=== PATIENT | male | born 1970 | race Caucasian/White ===

== ENCOUNTER 2016-05-28 15:04 | Emergency (ER) | payer BC, OTHER ==
[2016-05-28 16:39] VITALS: BP 134/81
--- NOTE | 2016-05-28 17:20 | RAD ---
HISTORY: Acute low back pain COMPARISONS: November 23, 2014 VIEWS: 3 , Frontal, lateral, and coned-down lateral sacral views of the lumbar spine FINDINGS: ALIGNMENT: The alignment is normal. VERTEBRAL BODIES: The patient is status post spinal fusion with pedicle screws at L5 and S1. There is no hardware failure or osteolysis. Laminectomy defect is noted at L5-S1. There is mild anterolateral marginal osteophyte formation. JOINTS: There is mild facet hypertrophic change. INTERVERTEBRAL DISCS: There is mild loss of intervertebral disc height. SOFT TISSUE: Unremarkable. OTHER: The pelvis is unremarkable. The lung bases are clear. A spinal stimulator generator is noted. Surgical clips are noted in the left hemipelvis IMPRESSION: 1. STATUS POST SPINAL FUSION. 2. MILD DEGENERATIVE CHANGES.
[2016-05-28] MEDS ORDERED: HYDROcodone/ACETAMIN 5-325 MG* 1 TAB PO ONE ×2 (17:50→17:51)
[2016-05-28] MEDS ORDERED: Diazepam TAB(*) 5 MG PO ONE (17:50)
[2016-05-28] MEDS ORDERED: Carisoprodol TAB* 350 MG PO ONE (17:53)
--- NOTE | 2016-05-28 18:07 | UC ---
Back Pain HPI - HPI Summary HPI Summary: 2013 HAD HX OF BACK SURGERY , WAS SYMPTOM FREE. TODAY WAS GETTING UP FROM TOILET AND HAD SHARP PAIN AND SPASM IN LOW BACK THAT RADIATES DOWN LEFT LEG. NO LOSS OF CONTROL OF BLADDER OR BOWEL. - History of Current Complaint Chief Complaint: UCBackPain Stated Complaint: BACK PAIN Time Seen by Provider: 05/28/16 16:51 Hx Obtained From: Patient Onset/Duration: Sudden Onset, Lasting Hours, Still Present Timing: Lasting Hours Severity Initially: Moderate Severity Currently: Moderate Back Pain: Is Discrete @ - LOW BACK, Radiates To - LEFT LEG Character: Spasmodic Aggravating: Movement, Bending, Walking Alleviating: Rest, Position, OTC Meds - IBUPROFEN Associated Signs And Symptoms: Positive: Pain with Weight Bearing. Negative: Swelling, Weakness, Numbness, Tingling, Abdominal Pain, Flank Pain, Bladder Incontinence, Bowel Incontinence, Weight Loss Related History: Previous Back Injury - Risk Factors AAA Risk Factors: Negative TAD Risk Factors: Negative Cauda Equina Risk Factors: Negative Epidural Abscess Risk Factors: Negative - Allergies/Home Medications Allergies/Adverse Reactions: Allergies Allergy/AdvReac Type Severity Reaction Status Date / Time Penicillins [PCN] Allergy Nausea And Verified 05/28/16 16:40 Vomiting Pregabalin [From Lyrica] Allergy See Comment Verified 05/28/16 16:40 Home Medications: Home Medications Ibuprofen TAB* [Advil TAB*] 400 mg PO Q8H PRN 05/28/16 [History Confirmed ] PMH/Surg Hx/FS Hx/Imm Hx Previously Healthy: Yes - Surgical History Surgical History: Yes Surgery Procedure, Year, and Place: Back surgeries. Dorsal Column Stimulator - Family History Known Family History: Negative: Renal Disease - Social History Occupation: Employed Full-time Lives: With Family Alcohol Use: None Substance Use Type: None Smoking Status (MU): Former Smoker Amount Used/How Often: 1 ppd Length of Time of Smoking/Using Tobacco: 10 -15 years Have You Smoked in the Last Year: No When Did the Patient Quit Smoking/Using Tobacco: Quit 2002 Review of Systems Constitutional: Negative Skin: Negative Eyes: Negative ENT: Negative Respiratory: Negative Cardiovascular: Negative Gastrointestinal: Negative Genitourinary: Negative Motor: Negative Neurovascular: Negative Musculoskeletal: Arthralgia, Myalgia Neurological: Negative Psychological: Negative All Other Systems Reviewed And Are Negative: Yes Physical Exam Triage Information Reviewed: Yes Appearance: Well-Appearing, No Pain Distress, Well-Nourished Vital Signs: Initial Vital Signs Temp 99.8 F 05/28/16 16:35 Pulse 83 05/28/16 16:35 Resp 18 05/28/16 16:35 BP 134/81 05/28/16 16:35 Pulse Ox 96 05/28/16 16:35 Vital Signs Reviewed: Yes Eye Exam: Normal Eyes: Positive: Conjunctiva Clear ENT Exam: Normal ENT: Positive: Normal ENT inspection, Hearing grossly normal, Pharynx normal, TMs normal Dental Exam: Normal Neck exam: Normal Neck: Positive: Supple, Nontender, No Lymphadenopathy Respiratory Exam: Normal Respiratory: Positive: Chest non-tender, Lungs clear, Normal breath sounds, No respiratory distress, No accessory muscle use Cardiovascular Exam: Normal Cardiovascular: Positive: RRR, No Murmur, Pulses Normal Abdominal Exam: Normal Abdomen Description: Positive: Nontender, No Organomegaly Musculoskeletal: Positive: ROM Intact, No Edema, Strength Limited @ - LOW BACK LEFT LEG, Other: - PALPABLE SPASM LEFT BUTTOCKS LOWER BACK Neurological Exam: Normal Psychological Exam: Normal Psychological: Positive: Normal Response To Family Skin Exam: Normal Back Pain Course/Dx - Differential Dx/Diagnosis Differential Diagnosis/HQI/PQRI: Fracture, Herniated Disc, Strain, Sprain Provider Diagnoses: acute on chronic low back pain Discharge - Discharge Plan Condition: Stable Disposition: HOME Prescriptions: Diazepam TAB(*) [Valium TAB(*)] 5 mg PO TID PRN #9 tab MDD three tabs PRN Reason: Spasms HYDROcodone/ACETAMIN 5-325 MG* [[place] 5-325 TAB*] 1 tab PO Q8H PRN #9 tab MDD three tabs PRN Reason: Pain Patient Education Materials: Acute Low Back Pain (ED), Chronic Back Pain (ED) Forms: *Work Release Referrals: Jonnie Hough NP [Primary Care Provider] - Additional Instructions: PHYSICAL THERAPY REFERRAL: You have been prescribed physical therapy. Treatments may include stretching, exercise, application of heat or cold, and other modalities. After an injury, PT can reduce swelling and pain. In recovery, PT is used to restore mobility and strength. Your specific treatment goals are: Reduction of Swelling (EGS, US, ice as needed) ___x__ Pain Reduction (EGS, US, ice as needed) ___x__ TENS Pack Fitting and Instruction Wound Hydrotherapy ___x__ Preservation of Mobility ___x_ Mosque of Mobility ___x__ Strength Mosque ___x__ Work or Sports Hardening This instruction sheet also serves as your PHYSICAL THERAPY REFERRAL! Please take it with you to the therapist, so he/she will be aware of your diagnosis and treatment plan. You may see the physical therapist of your choice for these treatments, but may wish to check with your insurance to be sure the provider you select is covered. It's important to see the doctor to whom you have been referred for follow up.
== END 2016-05-28 18:12 | disposition home or self-care (01) ==
LOC: UCCORT 15:04
DX: M54.5 Low back pain (principal); M62.830 Muscle spasm of back; Z88.0 Allergy status to penicillin; Z88.8 Allergy status to other drugs, medicaments and biological substances
CPT/HCPCS: 72100; 99213; A9270-GY; G0463

== ENCOUNTER 2016-07-22 07:40 | Emergency (ER) | payer BC ==
[2016-07-22 07:57] VITALS: BP 118/64
--- NOTE | 2016-07-22 08:19 | UC ---
Complaint Male HPI - HPI Summary HPI Summary: DIFFICULTY URINATING FOR THE PAST 2 WEEKS , GETTING WORSE EACH DAY WAS SEEN AT [facility] YESTERDAY , HE WAS REFERRED TO SEE THE UROLOGIST MILD ABDOMINAL PAIN TODAY , WAS ABLE TO VOID THIS MORNING - History of Current Complaint Chief Complaint: UCGU Stated Complaint: CAN'T URINATE Time Seen by Provider: 07/22/16 07:47 Hx Obtained From: Patient Onset/Duration: Gradual Onset, Lasting Weeks - 2, Still Present Timing: Intermittent Severity Initially: Moderate Severity Currently: Moderate Location: Suprapubic Character: Constant Pressure Aggravating Factor(s): Nothing Associated Signs And Symptoms: Negative: Negative, Diaphoresis, Back Pain, Fever , Hematuria, Dysuria, Constipation, Rectal Pain, Appetite, Nausea, Vomiting(# Of Episodes =), Penile Swelling, Penile Discharge - Allergies/Home Medications Allergies/Adverse Reactions: Allergies Allergy/AdvReac Type Severity Reaction Status Date / Time Penicillins [PCN] Allergy Nausea And Verified 07/22/16 07:44 Vomiting Pregabalin [From Lyrica] Allergy See Comment Verified 07/22/16 07:44 Home Medications: Home Medications Acetaminop/Codeine 30 MG TAB* [Tylenol/Codeine 30 MG TAB*] 1 tab BID PRN [History Confirmed 07/22/16] Omeprazole CAP* [Prilosec CAP* 20 MG] 20 mg PO DAILY 07/22/16 [History Confirmed 07/22/16] PMH/Surg Hx/FS Hx/Imm Hx Psychological History Of: Reports: Bipolar Disorder - Surgical History Surgical History: Yes Surgery Procedure, Year, and Place: Back surgeries. Dorsal Column Stimulator. Colonoscopy/Endoscopy. Hemmrhoids - Family History Known Family History: Negative: Renal Disease - Social History Alcohol Use: None Substance Use Type: None Smoking Status (MU): Former Smoker Amount Used/How Often: 1 ppd Length of Time of Smoking/Using Tobacco: 10 -15 years Have You Smoked in the Last Year: No When Did the Patient Quit Smoking/Using Tobacco: Quit 2002 - Immunization History Most Recent Influenza Vaccination: 2016 Review of Systems Constitutional: Negative Skin: Negative Eyes: Negative ENT: Negative Respiratory: Negative Cardiovascular: Negative Gastrointestinal: Negative Genitourinary: Other - URINARY RETENSION All Other Systems Reviewed And Are Negative: Yes Physical Exam Triage Information Reviewed: Yes Appearance: Well-Appearing, No Pain Distress, Well-Nourished Vital Signs: Initial Vital Signs Temp 98.2 F 07/22/16 07:46 Pulse 62 07/22/16 07:46 Resp 18 07/22/16 07:46 BP 118/64 07/22/16 07:46 Pulse Ox 100 07/22/16 07:46 Eyes: Positive: Conjunctiva Clear ENT: Positive: Normal ENT inspection, Hearing grossly normal, Pharynx normal Neck exam: Normal Neck: Positive: Supple, Nontender, No Lymphadenopathy Respiratory: Positive: Chest non-tender, Lungs clear, Normal breath sounds Cardiovascular: Positive: RRR, No Murmur, Pulses Normal Abdomen Description: Positive: Nontender, Soft. Negative: CVA Tenderness (R), CVA Tenderness (L), Distended, Guarding Bowel Sounds: Positive: Present Skin Exam: Normal Complaint Male Course/Dx - Differential Dx/Diagnosis Provider Diagnoses: URINARY RETENSION Discharge - Discharge Plan Condition: Stable Disposition: HOME Prescriptions: Tamsulosin HCl [Flomax] 0.4 mg PO DAILY WITH MEAL #30 cap Patient Education Materials: Urinary Retention in Men (ED) Referrals: Vic Bah MD [Medical Doctor] - As Soon As Possible Jonnie Hough NP [Primary Care Provider] - 5 Days Additional Instructions: FOLLOW UP WITH THE UROLOGIST THAT WAS ASSIGNED TO KRISTY JONES AND GRACE
== END 2016-07-22 08:19 | disposition home or self-care (01) ==
LOC: UCCORT 07:40
DX: R33.9 Retention of urine, unspecified (principal); Z88.0 Allergy status to penicillin; F31.9 Bipolar disorder, unspecified; Z87.891 Personal history of nicotine dependence
CPT/HCPCS: 99212; G0463

== ENCOUNTER 2016-09-24 13:45 | Emergency (ER) | payer BC ==
[2016-09-24 14:25] VITALS: BP 117/79
--- NOTE | 2016-09-24 15:13 | UC ---
Upper Extremity HPI - HPI Summary HPI Summary: pt presents with c/o left wrist pain that began yesterday. Pt denies injury to wrist. Pt reports that the he has an appointment with neurologist on October 02 for c/o muscle weakness, uncontrolled body movements, urinary retention and memory issues. - History of Current Complaint Chief Complaint: UCUpperExtremity Stated Complaint: LEFT HAND/WRIST COMPLAINT Time Seen by Provider: 09/24/16 14:51 Hx Obtained From: Patient ?: No Onset/Duration: Sudden Onset, Lasting Hours Severity Initially: Mild Severity Currently: Mild Location Of Pain: Is Discrete @ - left wrist Character: Dull, Aching Aggravating Factor(s): Movement Alleviating Factor(s): Nothing Associated Signs And Symptoms: Positive: Weakness Related History: Dominant Hand Right - Risk Factors Non-Orthopedic Risk Factor: Negative - Allergies/Home Medications Allergies/Adverse Reactions: Allergies Allergy/AdvReac Type Severity Reaction Status Date / Time Penicillins [PCN] Allergy Nausea And Verified 09/24/16 14:14 Vomiting Pregabalin [From Lyrica] Allergy See Comment Verified 09/24/16 14:14 Home Medications: Home Medications Cyclobenzaprine TAB* [Flexeril 10 MG TAB*] 10 mg PO BID PRN 09/24/16 [History Confirmed 09/24/16] Ibuprofen TAB* [Motrin TAB* 600 MG] 600 mg PO Q8H PRN 09/24/16 [History Confirmed 09/24/16] Linaclotide (NF) [Linzess (NF)] 290 mcg PO BEDTIME 09/24/16 [History Confirmed 09/24/16] Vitamin E CAP* 3 cap PO BEDTIME 09/24/16 [History Confirmed 09/24/16] PMH/Surg Hx/FS Hx/Imm Hx Previously Healthy: Yes Psychological History: Bipolar Disorder - Surgical History Surgical History: Yes Surgery Procedure, Year, and Place: Back surgeries. Dorsal Column Stimulator, appy, varicocele repair, speed banding for hemorrhoids - Family History Known Family History: Negative: Renal Disease - Social History Occupation: Employed Part-time Alcohol Use: None Substance Use Type: None Smoking Status (MU): Former Smoker Amount Used/How Often: 1 ppd Length of Time of Smoking/Using Tobacco: 10 -15 years Have You Smoked in the Last Year: No When Did the Patient Quit Smoking/Using Tobacco: Quit 2002 - Immunization History Most Recent Influenza Vaccination: 2016 Review of Systems Constitutional: Negative Skin: Negative Eyes: Negative ENT: Negative Respiratory: Negative Cardiovascular: Negative Gastrointestinal: Negative Genitourinary: Negative Motor: Decreased ROM, Weakness, Other - pain left wrist Neurovascular: Negative Musculoskeletal: Arthralgia, Myalgia Neurological: Negative Psychological: Negative All Other Systems Reviewed And Are Negative: Yes Physical Exam Triage Information Reviewed: Yes Appearance: Well-Appearing Vital Signs: Initial Vital Signs Temp 99.2 F 09/24/16 14:18 Pulse 79 09/24/16 14:18 Resp 18 09/24/16 14:18 BP 117/79 09/24/16 14:18 Pulse Ox 98 09/24/16 14:18 Eye Exam: Normal Dental Exam: Normal Neck exam: Normal Respiratory Exam: Normal Musculoskeletal Exam: Other - pain at capitate/pisiform with palpation, strength 2+ bilateral UE Psychological Exam: Normal Skin Exam: Normal Upper Extremity Course/Dx - Differential Dx/Diagnosis Differential Diagnosis/HQI/PQRI: Arthritis, Other - tendonitis Provider Diagnoses: arthralgia. tendonitis. side effect medication-? Discharge - Discharge Plan Condition: Stable Disposition: HOME Prescriptions: Ibuprofen TAB* [Motrin TAB* 600 MG] 600 mg PO Q8H PRN #45 tab PRN Reason: Pain Patient Education Materials: Arthralgia (ED) Referrals: Jonnie Hough NP [Nurse Practitioner] - If Needed
== END 2016-09-24 15:33 | disposition home or self-care (01) ==
LOC: UCCORT 13:45
DX: M77.9 Enthesopathy, unspecified (principal); M25.532 Pain in left wrist; F31.9 Bipolar disorder, unspecified; Z87.891 Personal history of nicotine dependence; Z88.0 Allergy status to penicillin
CPT/HCPCS: 99212; G0463

== ENCOUNTER 2017-02-20 10:22 | Emergency (ER) | payer BC ==
[2017-02-20 12:12] VITALS: BP 119/75
--- NOTE | 2017-02-20 12:46 | UC ---
Shoulder Pain HPI - HPI Summary HPI Summary: Pt c/o waking up 2 days ago with left side neck and upper back shoulder pain. Pt denies injury or trauma. Denies cardiac history - History of Current Complaint Chief Complaint: UCBackPain Stated Complaint: LEFT SIDE NECK/SHOULDER PAIN Time Seen by Provider: 02/20/17 12:14 Hx Obtained From: Patient Onset/Duration: Sudden Onset, Lasting Days, Still Present Timing: Constant Severity Initially: Mild Severity Currently: Mild Character: Dull, Aching Aggravating Factor(s): Movement, Other - touch Alleviating Factor(s): Rest Associated Signs And Symptoms: Positive: Negative Related History: Dominant Hand Right - Risk Factors Non-Orthopedic Risk Factor: Negative DVT Risk Factors: Negative Septic Arthritis Risk Factor: Negative - Allergies/Home Medications Allergies/Adverse Reactions: Allergies Allergy/AdvReac Type Severity Reaction Status Date / Time Penicillins [PCN] Allergy Nausea And Verified 02/20/17 12:12 Vomiting Pregabalin [From Lyrica] Allergy See Comment Verified 02/20/17 12:12 PMH/Surg Hx/FS Hx/Imm Hx Previously Healthy: Yes - Surgical History Surgical History: Yes Surgery Procedure, Year, and Place: Back surgeries. Dorsal Column Stimulator, appy, varicocele repair, speed banding for hemorrhoids - Family History Known Family History: Negative: Renal Disease - Social History Lives: With Family Alcohol Use: None Substance Use Type: None Smoking Status (MU): Former Smoker Amount Used/How Often: 1 ppd Length of Time of Smoking/Using Tobacco: 10 -15 years Have You Smoked in the Last Year: No When Did the Patient Quit Smoking/Using Tobacco: Quit 2002 - Immunization History Most Recent Influenza Vaccination: yes Review of Systems Constitutional: Negative Skin: Negative Eyes: Negative ENT: Negative Respiratory: Negative Cardiovascular: Negative Gastrointestinal: Negative Genitourinary: Negative Motor: Negative Neurovascular: Negative Musculoskeletal: Myalgia - left shoulder, neck Neurological: Negative Psychological: Negative Is Patient Immunocompromised?: No All Other Systems Reviewed And Are Negative: Yes Physical Exam Triage Information Reviewed: Yes Appearance: Well-Appearing Vital Signs: Initial Vital Signs Temp 98 F 02/20/17 12:08 Pulse 70 02/20/17 12:08 Resp 16 02/20/17 12:08 BP 119/75 02/20/17 12:08 Pulse Ox 100 02/20/17 12:08 Eye Exam: Normal ENT Exam: Normal Dental Exam: Normal Neck exam: Normal Neck: Positive: Supple Respiratory Exam: Normal Cardiovascular Exam: Normal Musculoskeletal Exam: Normal Musculoskeletal: Positive: Other: - point tenderness upper mid scapular, trigger point Neurological Exam: Normal Psychological Exam: Normal Skin Exam: Normal Shoulder Course/Dx - Differential Dx/Diagnosis Differential Diagnosis/HQI/PQRI: Arthritis, Bursitis, Sprain, Strain Provider Diagnoses: trigger point pain. myalgia Discharge - Discharge Plan Condition: Stable Disposition: HOME Patient Education Materials: Trigger Point Pain (ED) Referrals: Yaquelin Helton NP [Primary Care Provider] - If Needed Additional Instructions: Please follow up with your PCP or return to clinic as needed.
== END 2017-02-20 12:56 | disposition home or self-care (01) ==
LOC: UCCORT 10:22
DX: M79.1 Myalgia (principal); Z88.0 Allergy status to penicillin; Z87.891 Personal history of nicotine dependence
CPT/HCPCS: 99211; G0463

== ENCOUNTER 2018-01-21 20:57 | Emergency (ER) | payer BC ==
--- OUTSIDE RECORDS SUMMARY | 2018-01-21 21:15 | XMS REPORT ---
:1970 External Reference #:[id number] Author Organization [facility] Address [address], [address] [place] [address] Phone [phone] Care Team Providers Name Role Phone Yaquelin Helton, PNP-SONIDO, [employer], Ibclc Care Team Information Alarm Service Technician Unavailable Yaquelin Helton, SHAINA, [employer]IC, Ibclc Primary Care Physician Unavailable Payers Type Date Identification Numbers Payment Provider Subscriber Commercial Policy Number: [id number] Clovis[employer] Fatemeh Nicole PayID: [id number] [address] [address] [place] [address] Problems Date Description Provider Status Onset: 06/16/2016 Chronic idiopathic constipation Victor Manuel Flaherty MD Active Onset: 07/21/2016 Spivey's esophagus Victor Manuel Flaherty MD Active Onset: 07/21/2016 Gastroduodenitis Victor Manuel Flaherty MD Active Onset: 07/24/2016 Thrombosed external hemorrhoids Jace Wallace MD,FACS Active Onset: 06/19/2017 Nocturia Clarke Zhang M.D. Active Onset: 06/05/2017 Retention of urine Clarke Zhang M.D. Active Onset: 06/05/2017 Benign prostatic hypertrophy with Clarke Zhang M.D. Active outflow obstruction Onset: 06/05/2017 Screening for malignant neoplasm of Clarke Zhang M.D. Active prostate Onset: 12/20/2016 Digestive symptom Victor Manuel Flaherty MD Active Onset: 12/20/2016 Abdominal pain Victor Manuel Flaherty MD Active Onset: 12/20/2016 Flatulence, eructation and gas pain Victor Manuel Flaherty MD Active Onset: 12/20/2016 Constipation Victor Manuel Flaherty MD Active Family History Date Family Member(s) Problem(s) Comments General Colon Cancer General Diabetes Father No Current Problems Father Pacemaker Father turp Father Diabetes Mother No Current Problems Paternal Grandfather due to Unknown Causes () Paternal Grandmother due to Diabetes () Maternal Grandfather due to Alzheimer's Disease () Maternal Grandmother Unknown Social History Type Date Description Comments Lives With Mother Occupation Disabled ETOH Use Denies alcohol use Smoking Patient is a former smoker Allergies, Adverse Reactions, Alerts Date Description Reaction Status Severity Comments 05/31/2016 Lyrica active 05/31/2016 Penicillin active Medications Medication Date Status Form Strength Qnty SIG Indications Ordering Provider Ventolin HFA 01/04/ Active Aerosol 108(90Base 18gm Inhale 2 R05 Lopez2017 ) mcg/Act puffs by RENE Spencer mouth every 3 hours as needed for shortness of breath Benzonatate 01/04/ Active Capsules 100mg 30caps take 1 R05 Lopez2017 capsule by RENE Spencer mouth every 8 hours for coughing as needed Skelaxin 12/27/ Active Tablets 800mg 60tabs 1 by mouth Danie 2017 three times Yaquelin a day for PNP-BC, muscle [employer], Ibclc spasms.. Linzess 09/27/ Active Capsules 290mcg 90caps 1 by mouth Day Chavira every day Paroxetine HCL 06/29/ Active Tablets 10mg 90tabs take one Danie, 2017 tablet by Yaquelin mouth every PNP-BC, day with [employer], Ibclc 40mg tablet Paroxetine HCL 05/23/ Active Tablets 40mg 90tabs 1 by mouth F41.9 Danie 2017 every day Yaquelin with 10mg PNP-BC, tablet [employer], Ibclc Clonazepam 05/23/ Active Tablets 0.5mg 60tabs take 1 to 2 G47.00 Danie 2017 at bedtime Yaquelin, reference PNP-BC, #: [id number] [employer]IC, Ibclc F41.9 Jobst Active 04/30/2017 Active Misc 2Pair 2 pairs for I83.93 Clune, 15-20MMHG/Knee moderate (RT Jenniferleigh, High/Closed leg) and [employer]IC Toe/Medium severe (lt leg) varicosities Esomeprazole 12/20/2016 Active Capsules 2 90caps 1 cap by K22.70 Victor Manuel Flaherty MD Magnesium DR 0 mouth every m day every g morning Benadryl Allergy Active Capsules 2 30caps using otc Yaquelin Helton, 5 PNP-BC, [employer]IC, m Ibclc g Melatonin Active Capsules 5 1 by mouth Unknown m every at g bedtime as needed Meloxicam Active Tablets 7 Take One Unknown . Tablet By 5 Mouth Twice A m Day For 2 g Weeks Then as Needed Trospium 08/09/2017 Hx Caps ER 6 30caps 1 tab by R35.1 Vicente, Chloride ER - 24HR 0 mouth every Valentin Mir 09/11/2017 m day g Myrbetriq 06/21/2017 Hx Tablets 2 30tabs 1 by mouth Vicente, - ER 24HR 5 every day Valentin Mir 08/28/2017 m g Meloxicam 05/23/2017 Hx Tablets 7 60tabs 1 tab by M25.551 Yaquelin Helton , - . mouth twice a PNP-BC, [employer]IC, 09/11/2017 5 day as for 2 Ibclc m weeks and g then as needed Multivitamin 04/17/2017 Hx Tablets 30tabs 1 by mouth Yaquelin Helton, Adult - every day PNP-BC, [employer], 09/11/2017 Ibclc Vitamin C 04/17/2017 Hx Chewtabs 5 1 by mouth Yaquelin Helton, - 0 every day PNP-BC, AUT[employer]IC, 09/11/2017 0 Ibclc m g Paroxetine HCL 04/17/2017 Hx Tablets 2 30tabs 1 by mouth F41.9 Yaquelin Helton, - 0 every day PNP-BC, AUT[employer]IC, 05/23/2017 m Ibclc g Fexofenadine HCL 01/08/2017 Hx Tablets 1 30tabs 1 by mouth at Yaquelin Helton, - 8 night PNP-BC, AUT[employer]IC, 09/11/2017 0 Ibclc m g Fluticasone 01/08/2017 Hx Suspensio 5 16gm 2 sprays each Yaquelin Helton , Propionate - n 0 nare once a PNP-BC, [employer]IC, 09/11/2017 m day Ibclc c g / A c t Ibuprofen 01/02/2017 Hx Tablets 6 240tab 1 tab three Yaquelin Helton, - 0 s times a day PNP-BC, AUT[employer]IC, 02/28/2017 0 as needed Ibclc m g Vicodin ES 11/16/2016 Hx Tablets 7 40tabs one tablet M54.5 Clune, - . every 6 hours Claudio, 01/02/2017 5 as needed for [employer]IC - moderate to 3 severe pain 0 Reference #: [id number] m g Ziprasidone HCL 10/11/2016 Hx Capsules 2 30caps 1 tab po qhs Yaquelin Helton, 0 PNP-BC, AUT[employer]SM[employer]IC, m Ibclc g Metaxalone 10/11/2016 Hx Tablets 8 60tabs 1 tab by M62.830 Yaquelin Helton, - 0 mouth three PNP-BC, AUT[employer]IC, 02/28/2017 0 times a day Ibclc m as needed for g pain Cyclobenzaprine 09/07/2016 Hx Tablets 1 45tabs 1 by mouth M62.830 Yaquelin Helton, HCL - 0 three times a PNP-BC, AUT[employer]IC, 10/11/2016 m day as needed Ibclc g for back pain Tylenol With 08/10/2016 Hx Tablets 3 20tabs 1 by mouth Jace Wallace, Codeine #3 - 0 q6hr as MYRNA PHIPPS 10/11/2016 0 needed severe - pain, us if 3 ibuprofen not 0 effective m g Lidocaine 07/26/2016 Hx Ointment 5 30gm apply cream K64.5 Jace Wallace, - % to the MYRNA PHIPPS 08/10/2016 quirino-anal area as needed for pain every 4-6 hours Linzess 07/21/2016 Hx Capsules 2 90caps 1 by mouth K59.04 Victor Manuel Flaherty MD - Bertha every day 09/11/2017 0 m c g Omeprazole 07/04/2016 Hx Capsules 2 30caps 1 tab by Victor Manuel Flaherty MD - DR 0 mouth every 02/28/2017 m day every g morning Zithromax 06/28/2016 Hx Tablets 2 6tabs take 2 tabs Yaquelin Helton, 5 by mouth on PNP-BC, [employer]IC, 0 day 1 then 1 Ibclc m tab by mouth g every days 2-5 Vitamin E-400 06/26/2016 Hx Capsules 4 3 by mouth Yaquelin Helton, - 0 every day PNP-RENE HEAD, 10/11/2016 0 Ibclc U n i t Oxycodone-Acetam 06/26/2016 Hx Tablets 5 30tabs 1-2 tabs by M54.5 Jace Wallace, inophen - - mouth every 6 MD,FACS 01/02/2017 3 hours as 2 needed for 5 yosef m g Golytely 06/16/2016 Hx Solution 2 4000ml drink half K59.04 Victor Manuel Flaherty MD Rec 3 the evening 6 before and g half the m morning of the procedure (1 cup every 10') Dulcolax 06/16/2016 Hx Tablets 5 4tabs [address] herrera Chavira taken a 8pm g the day before starting the golytely Ziprasidone HCL Hx Capsules 4 1 at bedtime Unknown - 0 10/11/2016 m g Hydrocodone-Acet Hx Tablets 5 1 by mouth Unknown aminophen - - every 8 hours 08/10/2016 3 as needed 2 pain 5 m g Diazepam Hx Tablets 5 30tabs 1 tab 3 x a Yaquelin Helton, - m day as needed PNPRENE CAAL, 01/02/2017 g Reference #: Ibclc [id number] Vitamin D3 High Hx Capsules 1 1 by mouth Unknown Potency - 0 every day 10/11/2016 0 0 U n i t Ibuprofen Hx Tablets 6 1 by mouth Unknown - 0 every 6 hours 10/11/2016 0 as needed m pain use as g first line pain control Flomax Hx Capsules 0 1 tab by Unknown . mouth every 4 day 30 m minutes after g a meal Oxycodone-Acetam Hx Tablets 5 60tabs take one to Yaquelin Helton inophen - - two tablets PNPTEN, AUTOM[employer]SM[employer] MECH[employer]IC, 09/11/2017 3 by mouth Ibclc 2 every 6 hours 5 as needed for m pain g reference #: [id number] Tamsulosin HCL Hx Capsules 0 90caps 1 tab daily Ryder Zhang M.D. 06/20/2017 4 m g Cyclobenzaprine Hx Tablets 1 90tabs 1 tab by Yaquelin Helton, HCL - 0 mouth three PNP-BC, AUTOM[employer]SM[employer] ME[employer]IC, 01/04/2018 m times a day Ibclc g as needed Tylenol PM Extra Hx Tablets 5 no more than Unknown Strength - 0 2 tabs po at 01/04/2018 0 night - 2 5 m g Immunizations CPT Code Status Date Vaccine Lot # [id number] Given 01/25/2017 Influenza Virus Vaccine Quadrivalent Iiv4 Split [id number] Preser Free Id Vital Signs Date Vital Result Comment 01/04/2018 BP Systolic Sitting Left Arm 112 mmHg BP Diastolic Sitting Left Arm 72 mmHg Heart Rate 78 /min Respiratory Rate 20 /min Height 70 inches 5'10" Weight 231.00 lb BMI (Body Mass Index) 33.1 kg/m2 BSA (Body Surface Area) 2.22 m2 [place] body weight in kilograms 75 O2 % BldC Oximetry 95 % 12/27/2017 BP Systolic Sitting Left Arm 142 mmHg BP Diastolic Sitting Left Arm 92 mmHg Heart Rate 88 /min Height 70 inches 5'10" Weight 232.38 lb BMI (Body Mass Index) 33.3 kg/m2 BSA (Body Surface Area) 2.22 m2 [place] body weight in kilograms 75 O2 % BldC Oximetry 95 % 12/05/2017 BP Systolic Sitting Left Arm 118 mmHg BP Diastolic Sitting Left Arm 74 mmHg Body Temperature 97.6 F Heart Rate 78 /min Weight 228.00 lb O2 % BldC Oximetry 97 % 10/15/2017 BP Systolic 120 mmHg BP Diastolic 76 mmHg Body Temperature 98.0 F Heart Rate 68 /min Respiratory Rate 17 /min Weight 223.00 lb O2 % BldC Oximetry 97 % 09/27/2017 BP Systolic 132 mmHg BP Diastolic 80 mmHg 09/11/2017 BP Systolic 138 mmHg BP Diastolic 94 mmHg Heart Rate 73 /min Respiratory Rate 16 /min Height 70 inches 5'10" Weight 222.00 lb BMI (Body Mass Index) 31.9 kg/m2 BSA (Body Surface Area) 2.18 m2 [place] body weight in kilograms 75 08/28/2017 BP Systolic 122 mmHg BP Diastolic 78 mmHg Heart Rate 72 /min Height 70 inches 5'10" Weight 222.00 lb BMI (Body Mass Index) 31.9 kg/m2 BSA (Body Surface Area) 2.18 m2 [place] body weight in kilograms 75 O2 % BldC Oximetry 97 % 08/09/2017 BP Systolic 117 mmHg BP Diastolic 82 mmHg Body Temperature 97.3 F Heart Rate 72 /min Respiratory Rate 18 /min Height 70 inches 5'10" Weight 216.00 lb BMI (Body Mass Index) 31.0 kg/m2 BSA (Body Surface Area) 2.16 m2 [place] body weight in kilograms 75 O2 % BldC Oximetry 97 % Pain Level 0 06/20/2017 BP Systolic 112 mmHg BP Diastolic 72 mmHg Body Temperature 97.0 F Heart Rate 84 /min Respiratory Rate 17 /min Height 70 inches 5'10" Weight 212.00 lb BMI (Body Mass Index) 30.4 kg/m2 BSA (Body Surface Area) 2.14 m2 [place] body weight in kilograms 75 O2 % BldC Oximetry 98 % 06/19/2017 BP Systolic 129 mmHg BP Diastolic 91 mmHg Body Temperature 97.7 F Heart Rate 73 /min Respiratory Rate 17 /min Height 70 inches 5'10" Weight 212.12 lb BMI (Body Mass Index) 30.4 kg/m2 BSA (Body Surface Area) 2.14 m2 [place] body weight in kilograms 75 O2 % BldC Oximetry 99 % Pain Level 3 Low back 06/05/2017 BP Systolic 119 mmHg BP Diastolic 69 mmHg Body Temperature 98.1 F Heart Rate 72 /min Respiratory Rate 14 /min Height 70 inches 5'10" Weight 209.12 lb BMI (Body Mass Index) 30.0 kg/m2 BSA (Body Surface Area) 2.13 m2 [place] body weight in kilograms 75 Pain Level 3 chronic back pain per pt 05/23/2017 BP Systolic 122 mmHg BP Diastolic 80 mmHg Body Temperature 97.9 F Heart Rate 76 /min Respiratory Rate 17 /min Height 70 inches 5'10" Weight 206.50 lb BMI (Body Mass Index) 29.6 kg/m2 BSA (Body Surface Area) 2.12 m2 [place] body weight in kilograms 75 O2 % BldC Oximetry 97 % 04/30/2017 BP Systolic Sitting Left Arm 118 mmHg BP Diastolic Sitting Left Arm 72 mmHg Heart Rate 80 /min Respiratory Rate 18 /min Height 70 inches 5'10" Weight 205.25 lb BMI (Body Mass Index) 29.4 kg/m2 BSA (Body Surface Area) 2.11 m2 [place] body weight in kilograms 75 04/17/2017 BP Systolic 112 mmHg BP Diastolic 76 mmHg Body Temperature 96.7 F Heart Rate 76 /min Height 70 inches 5'10" Weight 205.00 lb BMI (Body Mass Index) 29.4 kg/m2 BSA (Body Surface Area) 2.11 m2 [place] body weight in kilograms 75 O2 % BldC Oximetry 97 % 02/28/2017 BP Systolic 112 mmHg BP Diastolic 64 mmHg Heart Rate 78 /min Height 70 inches 5'10" Weight 192.00 lb BMI (Body Mass Index) 27.5 kg/m2 BSA (Body Surface Area) 2.05 m2 [place] body weight in kilograms 75 12/20/2016 BP Systolic Sitting Left Arm 116 mmHg BP Diastolic Sitting Left Arm 70 mmHg Heart Rate 73 /min Respiratory Rate 16 /min Height 70 inches 5'10" Weight 182.00 lb BMI (Body Mass Index) 26.1 kg/m2 BSA (Body Surface Area) 2.01 m2 [place] body weight in kilograms 75 11/27/2016 BP Systolic 138 mmHg BP Diastolic 88 mmHg Height 70 inches 5'10" Weight 185.00 lb BMI (Body Mass Index) 26.5 kg/m2 BSA (Body Surface Area) 2.02 m2 [place] body weight in kilograms 75 11/21/2016 BP Systolic 108 mmHg BP Diastolic 62 mmHg Height 70 inches 5'10" Pima body weight in kilograms 75 11/16/2016 BP Systolic 116 mmHg BP Diastolic 78 mmHg Heart Rate 74 /min Height 70 inches 5'10" Weight 181.00 lb BMI (Body Mass Index) 26.0 kg/m2 BSA (Body Surface Area) 2.00 m2 [place] body weight in kilograms 75 10/11/2016 BP Systolic 154 mmHg BP Diastolic 76 mmHg Heart Rate 79 /min Height 70 inches 5'10" Weight 179.00 lb BMI (Body Mass Index) 25.7 kg/m2 BSA (Body Surface Area) 1.99 m2 [place] body weight in kilograms 75 09/07/2016 BP Systolic 132 mmHg BP Diastolic 76 mmHg Body Temperature 98.0 F Heart Rate 60 /min Height 70 inches 5'10" Weight 177.00 lb BMI (Body Mass Index) 25.4 kg/m2 BSA (Body Surface Area) 1.98 m2 [place] body weight in kilograms 75 O2 % BldC Oximetry 98 % 07/31/2016 BP Systolic 120 mmHg BP Diastolic 80 mmHg Height 70 inches 5'10" Weight 174.00 lb BMI (Body Mass Index) 25.0 kg/m2 BSA (Body Surface Area) 1.97 m2 07/26/2016 BP Systolic 118 mmHg BP Diastolic 76 mmHg Height 70 inches 5'10" Weight 174.00 lb BMI (Body Mass Index) 25.0 kg/m2 BSA (Body Surface Area) 1.97 m2 07/24/2016 BP Systolic 120 mmHg BP Diastolic 80 mmHg Body Temperature 97.5 F Height 70 inches 5'10" Weight 174.00 lb BMI (Body Mass Index) 25.0 kg/m2 BSA (Body Surface Area) 1.97 m2 07/21/2016 BP Systolic Sitting Left Arm 102 mmHg BP Diastolic Sitting Left Arm 70 mmHg Heart Rate 67 /min Respiratory Rate 16 /min Height 70 inches 5'10" Weight 178.00 lb BMI (Body Mass Index) 25.5 kg/m2 BSA (Body Surface Area) 1.99 m2 06/26/2016 BP Systolic Sitting Left Arm 114 mmHg BP Diastolic Sitting Left Arm 74 mmHg Body Temperature 97.7 F Heart Rate 56 /min Respiratory Rate 18 /min Height 70 inches 5'10" Weight 176.00 lb BMI (Body Mass Index) 25.3 kg/m2 BSA (Body Surface Area) 1.98 m2 [place] body weight in kilograms 75 06/16/2016 BP Systolic 124 mmHg BP Diastolic 80 mmHg Heart Rate 68 /min Weight 179.00 lb 06/14/2016 BP Systolic Sitting Left Arm 118 mmHg BP Diastolic Sitting Left Arm 66 mmHg Body Temperature 98.3 F Heart Rate 66 /min Respiratory Rate 12 /min Height 70 inches 5'10" Weight 181.00 lb BMI (Body Mass Index) 26.0 kg/m2 BSA (Body Surface Area) 2.00 m2 05/31/2016 BP Systolic Sitting Left Arm 122 mmHg BP Diastolic Sitting Left Arm 74 mmHg Heart Rate 80 /min Respiratory Rate 18 /min Height 70 inches 5'10" Weight 178.00 lb BMI (Body Mass Index) 25.5 kg/m2 BSA (Body Surface Area) 1.99 m2 [place] body weight in kilograms 75 Results Test Date Test Result H/L Range Note Glycohemoglobin A1c 12/05/2017 Glycohemoglobin (A1c) 5.2 % 4.2-6.3 1, 2 eAG 103 mg/dL 1 LDL Cholesterol Profile 12/05/2017 Cholesterol 159 mg/dL <200 1, 3 Triglycerides 241 mg/dL High <150 1, 4 HDL Cholesterol 34 mg/dL Low >40 1, 5 LDL-Cholesterol 77 mg/dL < 100 1, 6 CBC W/Automated Diff 12/05/2017 White Blood Count 7.2 K/uL 3.4-10.5 1 Red Blood Count 4.68 M/uL 4.20-5.80 1 Hemoglobin 15.1 gm/dL 12.8-17.0 1 Hematocrit 43.2 % 38.0-48.0 1 Mean Cell Volume 92.3 fl 80.0-96.0 1 Mean Corpuscular HGB 32.3 pg 27.0-33.0 1 Mean Corpuscular HGB Conc 35.0 g/dL 31.7-36.0 1 Platelet Count 220 K/uL 155-360 1 Red Cell Distri Width SD 43.9 fl 36-51 1 Red Cell Distri Width %CV 13.3 % 11.6-15.8 1 Mean Platelet Volume 11.0 fL High 6.6-10.6 1 Neut% 57.7 % 33.0-73.0 1 Lymph % 27.0 % 20.0-42.0 1 [place] % 5.5 % 0.0-10.0 1 Eo% 9.2 % High 0.0-6.6 1 Bas% 0.6 % 0.0-1.1 1 Neut# 4.13 K/uL 1.8-7.0 1 Lymph # 1.93 K/uL 1.0-4.0 1 [place] # 0.39 K/uL 0.0-0.8 1 Eos # 0.66 K/uL High 0.0-0.5 1 Baso # 0.04 K/uL 0.0-0.1 1 Comprehensive Metabolic Panel 12/05/2017 Glucose 133 mg/dL High 74-106 1 BUN 12 mg/dL 7-18 1 Creatinine 1.0 mg/dL 0.6-1.3 1 Glom Filtration Rate, Estimate >60 mL/min >60 1 If >60 mL/min >60 1, 7 BUN/Creat 12.0 ratio 1 Sodium 141 mmol/L 136-145 1 Potassium 4.0 mmol/L 3.5-5.1 1 Chloride 107 mmol/L 98-107 1 Carbon Dioxide 24 mmol/L 21-32 1 Anion Gap 10 mEq/L 8-16 1 Calcium 8.9 mg/dL 8.5-10.1 1 Total Protein 7.5 g/dL 6.4-8.2 1 Albumin 3.8 g/dL 3.4-5.0 1 Globulin 3.7 g/dL 1.9-4.3 1 Alb/Glob 1.0 ratio 1 Bilirubin,Total 0.4 mg/dL 0.2-1.0 1 Sgot/Ast 21 U/L 15-37 1 SGPT/Alt 34 U/L 12-78 1 Alkaline Phosphatase 93 U/L 45-117 1 Laboratory test finding 06/05/2017 Prostate Specific 0.76 ng/mL < 4.0 8 , 9 Antigen Ua RFX Micro & Culture II 06/05/2017 Urine Color YELLOW Yellow 8 Urine Clarity CLEAR Clear 8 Urine Glucose - Dipstick NEGATIVE mg/dL Negative 8 Urine Bilirubin - Dipstick NEGATIVE Negative 8 Urine Ketone NEGATIVE mg/dL Negative 8 Urine Specific Harrison <=1.005 Low 1.010-1.030 8 Urine Blood NEGATIVE Negative 8 Urine PH 6.5 6.5-7.5 8 Urine Protein - Dipstick NEGATIVE mg/dL Negative 8 Urine Urobilinogen - Dipstick 0.2 E.U./dL 0.2-1.0 8 Urine Nitrite - Dipstick NEGATIVE Negative 8 Urine Leuk Esterase NEGATIVE Negative 8 Laboratory test finding 12/21/2016 Sedimentation Rate 2 mm/hr 0-15 10, 11 Celiac Disease Comp AB 12/21/2016 Immunoglobulin A 265 mg/dL 90-386 10, 12 Profile Antigliadin Abs, IgG 2 units 0-19 10, 13 Antigliadin Abs, IgA 11 units 0-19 10, 14 Endomysial IgA Antibody Negative Negative 10 t-Transglutaminase IgA <2 U/mL 0-3 10, 15 t-Transglutaminase IgG <2 U/mL 0-5 10, 16 Laboratory test 12/21/2016 Calprotectin, Fecal < 16 ug/g 0-120 10, 17 finding Stool Culture 12/21/2016 Stool Culture NO ENTERIC PATHO 10, 18 <SEE NOTE> . ................ <SEE NOTE> , 19 Note: INCLUDES TESTING <SEE NOTE> 10, 20 . PLESIOMONAS, CAM <SEE NOTE> 10, 21 . ................ <SEE NOTE> 10, 22 . YERSINIA AND VIB <SEE NOTE> 10, 23 . SHOULD BE REQUES <SEE NOTE> 10, 24 Shiga Toxin 1 Antigen SHIGA TOXIN 1 NO <SEE NOTE> 10, 25 Shiga Toxin 2 Antigen SHIGA TOXIN 2 NO <SEE NOTE> 10, 26 Ova & Parasite 12/21/2016 Cryptosporidium Specific NEGATIVE FOR CRY 10 , 27 Antigen Screen Ag <SEE NOTE> Giardia Specific Antigen NEGATIVE FOR MAYRA <SEE NOTE> 10, 28 Fecal Fat, Qualitative 12/21/2016 Fats, Neutral Normal . 10, 29 Fats, Total Normal . 10, 30 Laboratory test 12/21/2016 C. Difficile Toxin B C-DIFF TOXIN B: 10, 31 finding By PCR <SEE NOTE> Vitamin B12 And 12/21/2016 Vitamin B12 335 pg/mL 193-986 10 Folate Folic Acid 18.5 ng/mL High 3.1-17.5 10 Laboratory test 12/21/2016 Pancreatic Elastase > 500.0 ug/g >200 10, 32 finding (Pe-1) Laboratory test 11/16/2016 Slide Review (SEE NOTE) 33, 34 finding CBS W/Automated Diff 11/16/2016 White Blood Count 5.2 K/uL 3.4-10.5 33 Red Blood Count 4.91 M/uL 4.20-5.80 33 Hemoglobin 15.8 gm/dL 12.8-17.0 33 Hematocrit 43.0 % 38.0-48.0 33 Mean Cell Volume 87.6 fl 80.0-96.0 33 Mean Corpuscular HGB 32.2 pg 27.0-33.0 33 Mean Corpuscular HGB Conc 36.7 g/dL High 31.7-36.0 33 Platelet Count 219 K/uL 150-400 33 Red Cell Distri Width SD 41.8 fl 36-51 33 Red Cell Distri Width %CV 13.4 % 11.6-15.8 33 Mean Platelet Volume 10.4 fL 6.6-10.6 33 Neut% 44.0 % 33.0-73.0 33 Lymph % 34.0 % 20.0-42.0 33 [place] % 7.2 % 0.0-10.0 33 Eo% 13.6 % High 0.0-6.6 33 Bas% 1.2 % High 0.0-1.1 33 Neut# 2.27 K/uL 1.8-7.0 33 Lymph # 1.75 K/uL 1.0-4.0 33 [place] # 0.37 K/uL 0.0-0.8 33 Eos # 0.70 K/uL High 0.0-0.5 33 Baso # 0.06 K/uL 0.0-0.1 33 Laboratory test 11/16/2016 Thyroid Stim Hormone 3.03 uIU/mL 0.30-4.20 33 finding Thyroid Antibodies 11/16/2016 Thyroglobulin 2.9 IU/mL High 0.0-0.9 33, 35 Antibody Thyroid Peroxidase Antibodies 16 IU/mL 0-34 33, 36 Ua RFX Micro & Culture II 11/15/2016 Urine Color YELLOW Yellow 37 Urine Clarity CLEAR Clear 37 Urine Glucose - Dipstick NEGATIVE mg/dL Negative 37 Urine Bilirubin - Dipstick NEGATIVE Negative 37 Urine Ketone NEGATIVE mg/dL Negative 37 Urine Specific Harrison 1.010 1.010-1.030 37 Urine Blood NEGATIVE Negative 37 Urine PH 5.5 Low 6.5-7.5 37 Urine Protein - Dipstick NEGATIVE mg/dL Negative 37 Urine Urobilinogen - Dipstick 0.2 E.U./dL 0.2-1.0 37 Urine Nitrite - Dipstick NEGATIVE Negative 37 Urine Leuk Esterase NEGATIVE Negative 37 Source: URINE, CLEAN CAT <SEE NOTE> 37, 38 Ua RFX Micro & Culture II 07/21/2016 Urine Color YELLOW Yellow 39 Urine Clarity CLEAR Clear 39 Urine Glucose - Dipstick NEGATIVE mg/dL Negative 39 Urine Bilirubin - Dipstick NEGATIVE Negative 39 Urine Ketone TRACE mg/dL High Negative 39 Urine Specific Harrison 1.015 1.010-1.030 39 Urine Blood NEGATIVE Negative 39 Urine PH 6.5 6.5-7.5 39 Urine Protein - Dipstick NEGATIVE mg/dL Negative 39 Urine Urobilinogen - Dipstick 0.2 E.U./dL 0.2-1.0 39 Urine Nitrite - Dipstick NEGATIVE Negative 39 Urine Leuk Esterase NEGATIVE Negative 39 Source: URINE, CLEAN CAT <SEE NOTE> 39, 40 Throat Strep Screen 06/26/2016 Throat Strep Screen BETA STREPTOCOCC <SEE 41, 42 NOTE> Quantity MODERATE 41 Recommended Therapy: PENICILLIN OR AM <SEE NOTE> 41, 43 Alternative Therapy: ERYTHROMYCIN MAY <SEE NOTE> 41, 44 1 Z13.1, Z13.220, Z13.0 2 Elevated levels of HbA1c suggest the need for more aggressive treatment of glycemia. The [place] [employer] recommends that a primary goal of therapy should be a HbA1c of <7% and that physicians should re-evaluate the treatment regimen in patients with HbA1c values consistently >8%. 3 Reference Guidelines*: Desirable: ........... < 200 mg/dL Borderline High: ..... 200-239 mg/dL High: ................ >=240 mg/dL * The National Cholesterol Education Program (NCEP) 4 Reference Guidelines*: Normal: ............. < 150 mg/dL Borderline High: .... 150-199 mg/dL High: ............... 200-499 mg/dL Very High: .......... > 500 mg/dL * Source: National Cholesterol Education Program (NCEP) 5 Reference Guidelines*: Low HDL: ..... < 40 mg/dL Normal: ..... 40-60 mg/dL Desirable: ... > 60 mg/dL *The National Cholesterol Education Program(NCEP) 6 Reference Guidelines*: Optimal:........... <100 mg/dL Near Optimal....... 100-129 mg/dL Borderline High.... 130-159 mg/dL High............... 160-189 mg/dL Very High.......... >=190 mg/dL * Source: National Cholesterol Education Program (NCEP) 7 Note: Persistent reduction for 3 months or more in an eGFR <60 mL/min/1.73 m2 defines CKD. Patients with eGFR values >/=60 mL/min/1.73 m2 may also have CKD if evidence of persistent proteinuria is present. The original MDRD equation for estimated GFR is not valid for patients less than 18 years of age. Additional information may be found at www.kdoqi.org. 8 R31.9 9 THIS ASSAY IS NOT INTENDED A CANCER SCREENING TEST The concentration of PSA in a given specimen, determined with assays from different manufacturers, can vary due to differences in assay methods and reagent specificity. Values obtained from different assay methods cannot be used interchangeably. Method: Siemens Dimension Davis Chemiluminescent immunoassay. 10 R19.4,R14.0 11 Method: Sediplast Modified Westergren 12 Performed at: [address] [id number] Content Administrator: Clementine Ann MD, Phone: [phone] 13 Negative 0 - 19 Weak Positive 20 - 30 Moderate to Strong Positive >30 14 Negative 0 - 19 Weak Positive 20 - 30 Moderate to Strong Positive >30 15 Negative 0 - 3 Weak Positive 4 - 10 Positive >10 Tissue Transglutaminase (tTG) has been identified as the endomysial antigen. Studies have demonstr- ated that endomysial IgA antibodies have over 99% specificity for gluten sensitive enteropathy. 16 Negative 0 - 5 Weak Positive 6 - 9 Positive >9 Performed at: [address] [id number] Content Administrator: Clementine Ann MD, Phone: [phone] Concentration Interpretation Follow-Up <16 - 50 ug/g Normal None >50 -120 ug/g Borderline Re-evaluate in 4-6 weeks >120 ug/g Abnormal Repeat as clinically indicated Performed at: [address] [id number] Content Administrator: Clementine Ann MD, Phone: [phone] Performed at: [address] [id number] Content Administrator: Jareth Mosquera MD, Phone: [phone] 18 NO ENTERIC PATHOGENS ISOLATED 19 ................................................... 20 INCLUDES TESTING FOR SALMONELLA, SHIGELLA, AEROMONAS, 21 PLESIOMONAS, CAMPYLOBACTER, AND E. COLI 0157:H7 22 ................................................... 23 YERSINIA AND VIBRIO ARE NOT ROUTINELY SCREENED FOR AND 24 SHOULD BE REQUESTED SEPARATELY NO YERSINIA ISOLATED 25 SHIGA TOXIN 1 NOT DETECTED 26 SHIGA TOXIN 2 NOT DETECTED Method: ImmunoCard STAT/EHEC Rapid Immunochromatographic Assay 27 NEGATIVE FOR CRYPTOSPORIDIUM SPECIFIC ANTIGEN 28 NEGATIVE FOR GIARDIA SPECIFIC ANTIGEN. The specimen will be held for 5 days. Additional testing may be performed upon request if the antigen tests are negative, and the patient is still symptomatic or has traveled to an endemic region. Method: Alere Quik Chek Rapid Membrane Enzyme Immunoassay 29 Normal (<60 Droplets/HPF) 30 Normal (<100 Droplets/HPF) 31 C-DIFF TOXIN B: NEGATIVE 027 NAP1 B1: NEGATIVE NOTE: IF REFLEX CULTURE FOR KLEBSIELLA OXYTOCA IS CLINICALLY INDICATED, PLEASE CONTACT THE [facility] ([phone]) WITHIN 3 DAYS OF THIS REPORT Testing Performed by: Laboratory [place] [address] 32 INFCE Result Units: ug Elast./g Severe Pancreatic Insufficiency: <100 Moderate Pancreatic Insufficiency: 100 - 200 Normal: >200 Performed at: [facility] [id number] Content Administrator: Jareth Mosquera MD, Phone: [phone] 33 DROP OFF SPEC COLLECTED BY NURSE 34 Instrument flagged sample for slide review. Less than 10% Bands seen, no other immature WBC's seen. RBC morphology essentially normal. Platelet estimate=Normal 35 Thyroglobulin Antibody measured by Sanna Malverne Methodology 36 Performed at: - [facility] [id number] Content Administrator: Clementine Ann MD, Phone: [phone] 37 BACK PAIN 38 URINE, CLEAN CATCH 39 DIFFICULTY URINATING 40 URINE, CLEAN CATCH 41 J02.8 42 BETA STREPTOCOCCUS GROUP A 43 PENICILLIN OR AMPICILLIN. 44 ERYTHROMYCIN MAY BE USED IN PENICILLIN ALLERGIC INDIVIDUALS Procedures Date CPT Code Description Status Comment 08/09/2017 83635 Measurement Post Voiding Completed Residual Urine By Ultrasound,Non-Imaging 06/19/2017 22452 Cystoscopy Completed 06/19/2017 63566 Measurement Post Voiding Completed Residual Urine By Ultrasound,Non-Imaging 06/19/2017 27788 complex uroflowmetry electronic Completed 06/05/2017 47898 Measurement Post Voiding Completed Residual Urine By Ultrasound,Non-Imaging 06/05/2017 98184 complex uroflowmetry electronic Completed 04/17/2017 50024 Brief Emotional/Behav Completed Assessment W/ Scoring Doc Per Standard Inst 01/05/2017 53256 Breath Hydrogen Test Completed 12/05/2016 25 Disability Form Completed 07/18/2016 35380 Hemorrhoidectomy Internal Completed Ligation Other Than Rubber Band Multipl 07/18/2016 26427 Colonoscopy Completed 07/18/2016 Colonoscopy Completed Document: 07/18/16 - Operative Report 07/04/2016 80442 EGD With Biopsy Completed 05/29/2006 Colonoscopy Completed Encounters Type Date Location Provider CPT E/M Dx Office Visit 01/04/2018 8:30a Family Medicine Johanna Lopez, AUTOMATIC TRANSMISSION MECHANIC 47642 R05 Office Visit 12/27/2017 4:30p Family Medicine Yaquelin Helton PNP-BC, 88796 G62.9 AUTOMATIC TRANSMISSION MECHANIC, Ibclc M62.830 Office Visit 12/05/2017 11:45a Family Medicine Yaquelin Helton PNP-BC, 76044 F41.9 AUTOMATIC TRANSMISSION MECHANIC, Ibclc M54.5 Z13.1 Z13.220 Z13.0 Office Visit 10/15/2017 2:00p Family Medicine Yaquelin Helton PNP-BC, 27740 A08.4 AUTOMATIC [employer]SMISSION MECHANIC, Ibclc Office Visit 09/27/2017 11:00a Family Medicine Family Nurse 34297 R03.0 Office Visit 09/11/2017 2:00p Family Medicine Yaquelin Helton PNP-BC, 37129 M54.5 AUTOMATIC TRANSMISSION MECHANIC, Ibclc F41.9 R03.0 Office Visit 08/28/2017 1:30p Family Medicine Yaquelin Helton PNP-BC, 66837 M54.5 AUTOMATIC TRANSMISSION MECHANIC, Ibclc Office Visit 08/09/2017 11:45a Urology Clarke Zhang M.D. 08585 R35.1 N40.1 Office Visit 06/20/2017 11:00a Family Medicine Yaquelin Helton PNP-BC, 13632 G62.9 AUTOMATIC TRANSMISSION MECHANIC, Ibclc M54.5 Office Visit 06/19/2017 11:15a Urology Clarke Zhang M.D. 81613 R35.1 N40.1 Office Visit 06/05/2017 2:00p Urology Clarke Zhang M.D. 56963 Z12.5 N40.1 R33.9 Office Visit 05/23/2017 11:45a Family Medicine Yaquelin Helton PNP-BC, 72718 M25.551 AUTOMATIC TRANSMISSION MECHANIC, Ibclc F41.9 M54.5 G47.00 R39.12 I83.93 Office Visit 04/30/2017 1:00p Family Medicine Claudio Peña, AUTOMATIC TRANSMISSION MECHANIC 35711 I83.93 Office Visit 04/17/2017 3:30p Family Medicine Yaquelin Helton PNP-BC, 38359 F41.9 AUTOMATIC TRANSMISSION MECHANIC, Ibclc Office Visit 02/28/2017 10:15a Family Medicine Yaquelin Helton PNP-BC, 68665 M54.5 AUTOMATIC TRANSMISSION MECHANIC, Ibclc M25.512 Office Visit 12/20/2016 3:[place] [address] K22.70 R14.0 R19.4 R10.9 K59.00 Office Visit 11/27/2016 1:45p Family Medicine Claudio Peña, AUTOMATIC TRANSMISSION MECHANIC 34307 M54.5 Office Visit 11/21/2016 10:00a Family Medicine Yaquelin Helton PNP-BC, 19803 M54.5 AUTOMATIC TRANSMISSION MECHANIC, Ibclc M62.830 Office Visit 11/16/2016 1:15p Family Medicine Claudio Peña, AUTOMATIC TRANSMISSION MECHANIC 23521 M54.5 G47.09 R53.83 Office Visit 10/11/2016 2:30p Family Medicine Yaquelin Helton PNP-BC, 45350 M62.830 AUTOMATIC TRANSMISSION MECHANIC, Ibclc N32.9 F31.89 Office Visit 09/07/2016 9:30a Family Medicine Yaquelin Helton PNP-BC, 93099 M62.830 AUTOMATIC TRANSMISSION MECHANIC, Ibclc Office Visit 08/10/2016 2:45p Surgical Office Efraín Jaquez 88304 K64.5 Valentin Yusuf Z12.11 K62.3 Office Visit 07/31/2016 10:30a Surgical Office Jace Wallace MD,[facility] [address]6617 K64.5 Office Visit 07/21/2016 9:15[place] [address] K22.70 K29.70 K59.04 Office Visit 07/06/2016 1:30p Surgical Office Efraín Jaquez 78310 K62.3 M.DSatish Office Visit 06/26/2016 10:15a Family Medicine Yaquelin Helton PNP-SONIDO, 59751 J02.8 AUTOMATIC TRANSMISSION MECHANIC, Ibclc M54.5 Office Visit 06/16/2016 11:15[place] [address] K59.04 K62.3 Office Visit 06/14/2016 1:00p [facility] Medicine Yaquelin Helton PNP-SONIDO, 61442 M54.5 AUTOMATIC TRANSMISSION MECHANIC, Ibclc K59.00 G24.01 Office Visit 05/31/2016 2:00p [facility] Medicine Yaquelin Helton PNP-BC, 44439 K59.00 AUTOMATIC [employer]SMISSION MECHANIC, Ibclc N81.6 F31.9 G24.01 Plan of Care 01/04/2018 - Johanna Lopez, ZACKARYPR05 CoughNew Medication:Ventolin HFA 108(90 Base) mcg/ActBenzonatate 100 mgComments:Going to begin a rescue inhaler for you for episodes of shortness of breath.You may also try benzonatate as needed.Also refer you to pulmonology for lung fuction testing to see if you truly have COPD.Call for worsening or no improvement.Referral:Braeden Mccurdy MD, Medical Diseases Of ChestFollow up:as needed
--- OUTSIDE RECORDS SUMMARY | 2018-01-21 21:15 | XMS REPORT | Continuity of Care Document ---
:1970 External Reference #:[id number] Author Name Venita Jain Care Team Providers Name Role Phone Yaquelin Helton NP Care Team Information Sales Representative Livestock Unavailable Yaquelin Helton PRODUCTION FINISHER Primary Care Physician Unavailable Payers Type Date Identification Numbers Payment Provider Subscriber Effective: Policy Number: [id number] [facility] Fatemeh Nicole 2016 PayID: [id number] [address] [id number] [place] [address] Advance Directives Description No Information Available Problems Date Description Provider Status Onset: 09/20/2016 Delay when starting to pass urine Jose Antonio Burkett MD Active Family History Date Family Member(s) Problem(s) Comments Father Diabetes Mother No Current Problems Social History Type Date Description Comments Sex Unknown Marital Status Patient is Occupation Retail Tobacco Use Start: Unknown End: Unknown Former Cigarette Smoker quit 2002 Smoking Status Reviewed: 01/02/18 Former Cigarette Smoker quit 2002 ETOH Use Patient denies alcohol use Allergies, Adverse Reactions, Alerts Date Description Reaction Status Severity Comments 10/18/2007 PCN sick Active 10/18/2007 Lyrica dizzy, confused, blurry eyes Active Medications Medication Date Status Form Strength Qnty SIG Indications Ordering Provider Tamsulosin HCL 08/17/ Active Capsules 0.4mg 90caps 1 by Jose Antonio Burkett MD every day Omeprazole / Active Capsules 20mg Reynold, 0000 DR Victor Manuel MD Linzess / Active Capsules 290mcg Take One Unknown 0000 Capsule By Mouth Every Day Paroxetine HCL 00/ Active Tablets 40mg Evan Helton 0000 lly PRODUCTION FINISHER Paroxetine HCL / Active Tablets 10mg Evan Helton 0000 lly PRODUCTION FINISHER Cyclobenzaprine / Active Tablets 10mg Evan Helton HCL 0000 lly PRODUCTION FINISHER Clonazepam / Active Tablets 0.5mg Take One Unknown 0000 To Two Tablets By Mouth AT Bedtime Max Day 2 Oxycodone-Acetami / Active Tablets 7.5-325mg Unknown nophen 0000 Methocarbamol / Active Tablets 750mg Unknown 0000 Melatonin ER / Active Tablets ER 10mg 1 by Unknown 0000 nouth at bed time Acetaminophen PM / Active Tablets 500-25mg 1 by Unknown Extra Strength 0000 mouth at bedtime Meloxicam / Active Tablets 7.5mg Take One Unknown 0000 Tablet By Mouth Twice A Day For 2 Weeks Then as Needed Ziprasidone HCL / Hx Capsules 40mg Take One Unknown 0000 - Capsule 12/06/ By Mouth 2018 AT Bedtime Oxycodone-Acetami / Hx Tablets 5-325mg Take One Unknown nophen 0000 - To Two 12/06/ Tablets 2018 By Mouth Every 6 Hours as Needed For Pain Maxi Diazepam / Hx Tablets 5mg Unknown 0000 - 2017 Vitamin E / Hx Capsules 400Unit 1 by Unknown 0000 - mouth 2017 day Vitamin D / Hx Tablets 1000Unit 1 by Unknown 0000 - mouth 2017 day Trospium Chloride / Hx Caps ER 60mg 1 by Unknown ER 0000 - 24HR mouth 2017 day Immunizations Description No Information Available Vital Signs Date Vital Result Comment 01/02/2018 10:57am Height 70 inches 5'10" Weight 228.00 lb Weight 103.421 kg BMI (Body Mass Index) 32.7 kg/m2 Post Void Residual ml 88 bladder scan 12/18/2017 9:30am Height 70 inches 5'10" Weight 228.00 lb Weight 103.421 kg BMI (Body Mass Index) 32.7 kg/m2 Post Void Residual ml 476 bladder scan 12/07/2017 11:07am Height 70 inches 5'10" Weight 223.00 lb Weight 101.153 kg BMI (Body Mass Index) 32.0 kg/m2 BP Systolic 140 mmHg states is having back pain BP Diastolic 94 mmHg states is having back pain Heart Rate 71 /min Respiratory Rate 16 /min Post Void Residual ml 103 bladder scan 08/17/2016 2:13pm Height 70 inches 5'10" Weight 173.00 lb Weight 78.473 kg BMI (Body Mass Index) 24.8 kg/m2 BP Systolic 119 mmHg left wrist audio BP Diastolic 79 mmHg left wrist audio Heart Rate 74 /min Body Temperature 97.4 F Post Void Residual ml 0 Indication:, Ultrasound kamille 04/20/2008 9:50am BP Systolic 127 mmHg BP Diastolic 82 mmHg Heart Rate 77 /min Respiratory Rate 18 /min 01/20/2008 10:03am BP Systolic 119 mmHg BP Diastolic 75 mmHg Heart Rate 81 /min Respiratory Rate 20 /min 12/23/2007 10:27am BP Systolic 114 mmHg BP Diastolic 77 mmHg Heart Rate 110 /min Respiratory Rate 20 /min 12/13/2007 9:02am BP Systolic 127 mmHg BP Diastolic 74 mmHg Heart Rate 78 /min Respiratory Rate 20 /min 10/18/2007 9:10am BP Systolic 122 mmHg BP Diastolic 82 mmHg Heart Rate 75 /min Respiratory Rate 20 /min Results Test Date Facility Test Result H/L Range Note 230 Ua Routine 01/02/2018 [facility] Ua Glucose Negative REF TO DR ADDRESS ON ORDER FOR (315)- - Ua Protein Negative Ua Nitrite Negative Ua Leuko Negative Ua Blood Negative Ua Color Yellow Ua Ketones Negative Ua Clarity Clear Ua Specific [place] 1.010 1.003-1.030 Ua PH 5.5 5.0-7.5 Ua Bilirubin Negative Ua Urobilinogen 0.2 E.U./dL 0.0-1.0 230 Ua Routine 12/07/2017 [facility] Ua Glucose Negative REF TO DR ADDRESS ON ORDER FOR (315)- - Ua Protein Negative Ua Nitrite Negative Ua Leuko Negative Ua Blood Negative Ua Color Yellow Ua Ketones Negative Ua Clarity Clear Ua Specifici [place] 1.010 1.003-1.030 Ua PH 7.0 5.0-7.5 Ua Bilirubin Negative Ua Urobilinogen 0.2 E.U./dL 0.0-1.0 CMP 12/05/2017 Outside Facility BUN - Urea Nitrogen 12 7-18 (315)- - Creatinine 1.0 0.6-1.3 Calcium 8.9 8.5-10.1 Alkaline Phosphatase 93 45-117 Ast (Sgot) 21 15-37 Potassium 4.0 3.5-5.1 Alt (SGPT) 34 12-78 Laboratory test finding 12/05/2017 Outside Facility Egfr >60 >60 (315)- - CBC W/Diff 12/05/2017 Outside Facility Hemoglobin 15.1 12.8-17.0 (315)- - Hematocrit 43.2 38.0-48.0 Laboratory test 06/05/2017 Outside Facility PSA 0.76 <4.0 finding (315)- - Urine Microscopy 09/20/2016 [employer] [facility] Urine WBC 3-5 /HPF 0 - 5 [address] [place] [address] [phone] Urine RBC 0-2 /HPF 0-2 Bacteria 4+ /HPF Neg Crystals NEG /HPF Neg Epithelial Cells RARE /HPF Neg Sperm NEG /HPF Neg Yeast PRESENT /HPF Neg UACast NEG /LPF Neg Urine Culture 08/17/2016 [facility] Urine Culture NO GROWTH: 1, [address] <[place] [address] NOTE> [phone] Laboratory test 08/17/2016 [facility] [employer] [facility] Total Psa 0.53 ng/mL 0.00-[address] [place] [address] Only [address] [place] [address] [phone] Urine Microscopy 08/17/2016 [employer] Urine WBC 0-2 /HPF 0 - 5 [address] [place] [address] [phone] Urine RBC 0-2 /HPF 0-2 Bacteria RARE /HPF Neg Crystals [place]AMA [place]X, 4+ /HPF Neg Epithelial Cells RARE /HPF Neg Sperm NEG /HPF Neg Yeast NEG /HPF Neg 230 Ua Routine 08/17/2016 [facility] Ua Glucose Negative REF TO DR ADDRESS ON ORDER FOR (794)- - Ua Protein Negative Ua Nitrite Negative Ua Leuko Negative Ua Blood Trace-intact Ua Color yellow Ua Ketones Negative Ua Clarity clear Ua Specifici [place] 1.025 1.003-1.030 Ua PH 5.0 5.0-7.5 Ua Bilirubin Negative Ua Urobilinogen 0.2 E.U./dL 0.0-1.0 Laboratory test finding 07/21/2016 Outside Facility Ua Color Yellow Yellow (315)- - Ua Clarity Clear Clear Ua Glucose Neg Neg Ua Bilirubin Neg Neg Ua Ketones Trace High Neg Ua Specifici [place] 1.015 1.010-1.030 Ua Blood Neg Neg Ua PH 6.5 6.5-7.5 Ua Protein Neg Neg Ua Urobilinogen 0.2 0.2-1.0 Ua Nitrite Neg Neg Ua Leuko Neg Neg Laboratory test 12/20/2007 N2N/CCD Import Pathology hydro sac finding Miscellaneous Laboratory test 12/13/2007 N2N/CCD Import Calcium 9.1 finding Creatinine 0.8 BUN - Urea Nitrogen 14 1 R33.9 2 NO GROWTH: FINAL REPORT Procedures Date Code Description Status 01/02/2018 88449 Bladder Scan, Post Voiding Residual Urine Completed 01/02/2018 29283 Urodynamics, Complex Uroflowmetry Eg Calibrated Completed Electronic Office 12/19/2017 08687 Duplex Scan Of Arterial Inflow And Venous Outflow Of Completed Penile-Globa 12/19/2017 26890 Injection, Of Corpora Cavernosa With Pharmacologic Completed Agent(S) 12/18/2017 85369 Bladder Scan, Post Voiding Residual Urine Completed 12/18/2017 [id number] Colonoscopy Completed 09/20/2016 11084 Bladder Scan, Post Voiding Residual Urine Completed 09/20/2016 51384 Urodynamics, Complex Uroflowmetry Eg Calibrated Completed Electronic Office 08/17/2016 66196 Bladder Scan, Post Voiding Residual Urine Completed 12/20/2007 99445 Excision Of Hydrocele; Unilateral Completed Encounters Type Date Location Provider Dx Diagnosis Office Visit 01/02/2018 Halie Hines R33.9 Retention of urine, 10:30a Urology LatriceP.Sita unspecified R35.1 Nocturia N52.02 Corporo-venous occlusive erectile dysfunction Office 12/19/2017 Halie Hines N52.02 Corporo-venous Visit 11:15a Urology Skip Pollard occlusive erectile dysfunction Office 12/18/2017 Halie Hines R33.9 Retention of Visit 9:45a Urology LatriceP.AaStish urine, unspecified R35.1 Nocturia Z12.5 Encounter for screening for malignant neoplasm of prostate N52.8 Other male erectile dysfunction Office Visit 09/20/2016 Halie Aguilar R39.11 Hesitancy of 9:05a Urology MD Kwadwo micturition Office Visit 08/17/2016 Awilda Desir, R31.1 Benign essential 2:00p Urology PRODUCTION FINISHER/PA microscopic hematuria R39.14 Feeling of incomplete bladder emptying 600.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 Excellent improvement. Call for his reviewed. Follow-up 6 sxvopuA09.1 NocturiaComments:At baseline his voiding is improved. Be mindful of orthostatic side effects especially at jztzdH75.02 Corporo-venous occlusive erectile dysfunctionComments:Vacuum erection device is available for the patient is a 20% co-pay. He'll keep that in mind. Call for his reviewed
--- OUTSIDE RECORDS SUMMARY | 2018-01-21 21:16 | XMS REPORT ---
:1970 External Reference #:[id number] Author Organization [facility] Address [address], [address] [place] [address] Phone [phone] Care Team Providers Name Role Phone Yaquelin Helton, PNPTEN, INSTITUTIONAL COMMODITY ANALYST, Ibclc Care Team Information Laborer Heading Unavailable Yaquelin Helton, SHAINA, INSTITUTIONAL COMMODITY ANALYST, Ibclc Primary Care Physician Unavailable Payers Type Date Identification Numbers Payment Provider Subscriber Commercial Policy Number: [id number] Clovisus Fatemeh Nicole PayID: [id number] [address] [address] [place] [address] Problems Date Description Provider Status Onset: 06/16/2016 [...] Date Description Comments Lives With Mother Occupation Currently Working works at [employer] ETOH Use Denies alcohol use Smoking Patient is a former smoker Allergies, Adverse Reactions, Alerts Date Description Reaction Status Severity Comments 05/31/2016 Lyrica active 05/31/2016 Penicillin active Medications Medication Date Status Form Strength Qnty SIG Indications Ordering Provider Skelaxin Active Tablets 800mg 60tabs 1 by mouth Garcia Helton three times Yaquelin, a day for PNP-BC, muscle INSTITUTIONAL COMMODITY ANALYST, Ibclc spasms.. Linzess Active Capsules 290mcg 90caps 1 by mouth Garcia Chavira every day Paroxetine Active Tablets 10mg 90tabs take one Danie, HCL 018 tablet by Yaquelin, mouth every PNP-BC, day with INSTITUTIONAL COMMODITY ANALYST, Ibclc 40mg tablet Paroxetine Active Tablets 40mg 90tabs 1 by mouth F41.9 Danie, HCL 018 every day Yaquelin, with 10mg PNP-BC, tablet INSTITUTIONAL COMMODITY ANALYST, Ibclc Clonazepam Active Tablets 0.5mg 60tabs take 1 to 2 G47.00 Garcia Helton at bedtime Yaquelin, Reference PNP-BC, #: [id number] INSTITUTIONAL COMMODITY ANALYST, Ibclc F41.9 Jobst Active 04/30/2017 Active Misc 2Pair 2 pairs for I83.93 Clune, 15-20MMHG/Knee moderate (RT Jenniferleigh, High/Closed leg) and INSTITUTIONAL COMMODITY ANALYST Toe/Medium severe (lt leg) varicosities Esomeprazole 12/20/2016 Active Capsules 2 90caps 1 cap by K22.70 Victor Manuel Flaherty MD Magnesium DR 0 mouth every m day every g morning Benadryl Allergy Active Capsules 2 30caps using otc Yaquelin Helton, 5 PNP-BC, INSTITUTIONAL COMMODITY ANALYST, m Ibclc g Melatonin Active Capsules 5 1 by mouth Unknown m every at g bedtime as needed Cyclobenzaprine Active Tablets 1 90tabs 1 tab by Yaquelin Helton, HCL 0 mouth three PNP-BC, INSTITUTIONAL COMMODITY ANALYST, m times a day Ibclc g as needed Tylenol PM Extra Active Tablets 5 no more than Unknown Strength 0 2 tabs po at 0 night - 2 5 m g Trospium 08/09/2017 Hx Caps ER 6 30caps [...] Helton , - . mouth twice a [facility], INSTITUTIONAL COMMODITY ANALYST, 09/11/2017 5 day as for 2 Ibclc m weeks and g then as needed Multivitamin 04/17/2017 Hx Tablets 30tabs 1 by mouth Yaquelin Helton, Adult - every day [facility], [facility], 09/11/2017 Ibclc Vitamin C 04/17/2017 Hx Chewtabs 5 1 by mouth Yaquelin Helton, - 0 every day PNP-BC, INSTITUTIONAL COMMODITY ANALYST, 09/11/2017 0 Ibclc m g Paroxetine HCL 04/17/2017 Hx Tablets 2 30tabs 1 by mouth F41.9 Yaquelin Helton, - 0 every day PNP-BC, INSTITUTIONAL COMMODITY ANALYST, 05/23/2017 m Ibclc g Fexofenadine HCL 01/08/2017 Hx Tablets 1 30tabs 1 by mouth at Yaquelin Helton, - 8 night PNP-BC, INSTITUTIONAL COMMODITY ANALYST, 09/11/2017 0 Ibclc m g Fluticasone 01/08/2017 Hx Suspensio 5 16gm 2 sprays each Yaquelin Helton , Propionate - n 0 nare once a PNP-BC, INSTITUTIONAL COMMODITY ANALYST, 09/11/2017 m day Ibclc c g / A c t Ibuprofen 01/02/2017 Hx Tablets 6 240tab 1 tab three Yaquelin Helton, - 0 s times a day PNP-BC, INSTITUTIONAL COMMODITY ANALYST, 02/28/2017 0 as needed Ibclc m g Vicodin ES 11/16/2016 Hx Tablets 7 40tabs one tablet M54.5 Clune, - . every 6 hours Claudio, 01/02/2017 5 as needed for INSTITUTIONAL COMMODITY ANALYST - moderate to 3 severe pain 0 Reference #: 0 [id number] m g Ziprasidone HCL 10/11/2016 Hx Capsules 2 30caps 1 tab po qhs Yaquelin Helton, 0 PNP-BC, INSTITUTIONAL COMMODITY ANALYST, m Ibclc g Metaxalone 10/11/2016 Hx Tablets 8 60tabs 1 tab by M62.830 Yaquelin Helton, - 0 mouth three PNP-BC, INSTITUTIONAL COMMODITY ANALYST, 02/28/2017 0 times a day Ibclc m as needed for g pain Cyclobenzaprine 09/07/2016 Hx Tablets 1 45tabs 1 by mouth M62.830 Yaquelin Helton, HCL - 0 three times a PNP-BC, INSTITUTIONAL COMMODITY ANALYST, 10/11/2016 m day as needed Ibclc g [...] mouth K59.04 Victor Manuel Flaherty MD - 9 every day 09/11/2017 0 m c g Omeprazole 07/04/2016 Hx Capsules 2 30caps 1 tab by Victor Manuel Flaherty MD - DR 0 mouth every 02/28/2017 m day every g morning Zithromax 06/28/2016 Hx Tablets 2 6tabs take 2 tabs Yaquelin Helton, 5 by mouth on PNP-BC, INSTITUTIONAL COMMODITY ANALYST, 0 day 1 then 1 Ibclc m tab by mouth g every days 2-5 Vitamin E-400 06/26/2016 Hx Capsules 4 3 by mouth Yaquelin Helton, - 0 every day PNP-BC, INSTITUTIONAL COMMODITY ANALYST, 10/11/2016 0 Ibclc U n i t Oxycodone-Acetam 06/26/2016 Hx Tablets 5 30tabs 1-2 tabs by M54.5 Jace Wallace inophen - - mouth every 6 MD,FACS [...] Yaquelin Helton, - m day as needed RENE MERRITT, 01/02/2017 g Reference #: Ibclc [id number] Vitamin D3 High Hx Capsules 1 1 [...] Yaquelin Helton inophen - - two tablets RENE MERRITT, 09/11/2017 3 by mouth Ibclc 2 every 6 hours 5 as needed for m pain g reference #: [id number] Tamsulosin HCL Hx Capsules 0 90caps 1 tab daily Ryder Zhang M.D. 06/20/2017 4 m g Immunizations CPT Code Status Date Vaccine Lot # [id number] Given 01/25/2017 Influenza Virus Vaccine Quadrivalent Iiv4 Split [id number] Preser Free Id Vital Signs Date Vital Result Comment 12/27/2017 BP Systolic Sitting Left Arm 142 mmHg BP Diastolic Sitting Left Arm 92 mmHg Heart Rate 88 /min Height 70 inches 5'10" Weight 232.38 lb BMI (Body Mass Index) 33.3 kg/m2 BSA (Body Surface Area) 2.22 m2 [place] body weight in kilograms 75 O2 % [...] kg/m2 BSA (Body Surface Area) 2.18 m2 [place] body weight in kilograms 75 08/28/2017 BP Systolic 122 mmHg BP Diastolic 78 mmHg Heart Rate 72 /min Height 70 inches 5'10" Weight 222.00 lb BMI (Body Mass Index) 31.9 kg/m2 BSA (Body Surface Area) 2.18 m2 [place] body weight in kilograms 75 O2 % BldC Oximetry 97 % 08/09/2017 BP Systolic 117 mmHg BP Diastolic 82 mmHg Body Temperature 97.3 F Heart Rate 72 /min Respiratory Rate 18 /min Height 70 inches 5'10" Weight 216.00 lb BMI (Body Mass Index) 31.0 kg/m2 BSA (Body Surface Area) 2.16 m2 [place] body weight in kilograms 75 O2 % BldC Oximetry 97 % Pain Level 0 06/20/2017 BP Systolic 112 mmHg BP Diastolic 72 mmHg Body Temperature 97.0 F Heart Rate 84 /min Respiratory Rate 17 /min Height 70 inches 5'10" Weight 212.00 lb BMI (Body Mass Index) 30.4 kg/m2 BSA (Body Surface Area) 2.14 m2 [place] body weight in kilograms 75 O2 % BldC Oximetry 98 % 06/19/2017 BP Systolic 129 mmHg BP Diastolic 91 mmHg Body Temperature 97.7 F Heart Rate 73 /min Respiratory Rate 17 /min Height 70 inches 5'10" Weight 212.12 lb BMI (Body Mass Index) 30.4 kg/m2 BSA (Body Surface Area) 2.14 m2 [place] body weight in kilograms 75 O2 % BldC Oximetry 99 % Pain Level 3 Low back 06/05/2017 BP Systolic 119 mmHg BP Diastolic 69 mmHg Body Temperature 98.1 F Heart Rate 72 /min Respiratory Rate 14 /min Height 70 inches 5'10" Weight 209.12 lb BMI (Body Mass Index) 30.0 kg/m2 BSA (Body Surface Area) 2.13 m2 [place] body weight in kilograms 75 Pain Level 3 chronic back pain per pt 05/23/2017 BP Systolic 122 mmHg BP Diastolic 80 mmHg Body Temperature 97.9 F Heart Rate 76 /min Respiratory Rate 17 /min Height 70 inches 5'10" Weight 206.50 lb BMI (Body Mass Index) 29.6 kg/m2 BSA (Body Surface Area) 2.12 m2 [place] body weight in kilograms 75 O2 % BldC Oximetry 97 % 04/30/2017 BP Systolic Sitting Left Arm 118 mmHg BP Diastolic Sitting Left Arm 72 mmHg Heart Rate 80 /min Respiratory Rate 18 /min Height 70 inches 5'10" Weight 205.25 lb BMI (Body Mass Index) 29.4 kg/m2 BSA (Body Surface Area) 2.11 m2 [place] body weight in kilograms 75 04/17/2017 BP Systolic 112 mmHg BP Diastolic 76 mmHg Body Temperature 96.7 F Heart Rate 76 /min Height 70 inches 5'10" Weight 205.00 lb BMI (Body Mass Index) 29.4 kg/m2 BSA (Body Surface Area) 2.11 m2 [place] body weight in kilograms 75 O2 % BldC Oximetry 97 % 02/28/2017 BP Systolic 112 mmHg BP Diastolic 64 mmHg Heart Rate 78 /min Height 70 inches 5'10" Weight 192.00 lb BMI (Body Mass Index) 27.5 kg/m2 BSA (Body Surface Area) 2.05 m2 [place] body weight in kilograms 75 12/20/2016 BP Systolic Sitting Left Arm 116 mmHg BP Diastolic Sitting Left Arm 70 mmHg Heart Rate 73 /min Respiratory Rate 16 /min Height 70 inches 5'10" Weight 182.00 lb BMI (Body Mass Index) 26.1 kg/m2 BSA (Body Surface Area) 2.01 m2 [place] body weight in kilograms 75 11/27/2016 BP Systolic 138 mmHg BP Diastolic 88 mmHg Height 70 inches 5'10" Weight 185.00 lb BMI (Body Mass Index) 26.5 kg/m2 BSA (Body Surface Area) 2.02 m2 [place] body weight in kilograms 75 11/21/2016 BP Systolic 108 mmHg BP Diastolic 62 mmHg Height 70 inches 5'10" Holland body weight in kilograms 75 11/16/2016 BP Systolic 116 mmHg BP Diastolic 78 mmHg Heart Rate 74 /min Height 70 inches 5'10" Weight 181.00 lb BMI (Body Mass Index) 26.0 kg/m2 BSA (Body Surface Area) 2.00 m2 [place] body weight in kilograms 75 10/11/2016 BP Systolic 154 mmHg BP Diastolic 76 mmHg Heart Rate 79 /min Height 70 inches 5'10" Weight 179.00 lb BMI (Body Mass Index) 25.7 kg/m2 BSA (Body Surface Area) 1.99 m2 [place] body weight in kilograms 75 09/07/2016 BP Systolic 132 mmHg BP Diastolic 76 mmHg Body Temperature 98.0 F Heart Rate 60 /min Height 70 inches 5'10" Weight 177.00 lb BMI (Body Mass Index) 25.4 kg/m2 BSA (Body Surface Area) 1.98 m2 [place] body weight in kilograms 75 O2 % [...] kg/m2 BSA (Body Surface Area) 1.98 m2 [place] body weight in kilograms 75 06/16/2016 BP [...] kg/m2 BSA (Body Surface Area) 1.99 m2 [place] body weight in kilograms 75 Results Test [...] 1 Lymph % 27.0 % 20.0-42.0 1 Jackson % 5.5 % 0.0-10.0 1 Eo% 9.2 % High 0.0-6.6 1 Bas% 0.6 % 0.0-1.1 1 Neut# 4.13 K/uL 1.8-7.0 1 Lymph # 1.93 K/uL 1.0-4.0 1 Jackson # 0.39 K/uL 0.0-0.8 1 Eos # [...] Ketone NEGATIVE mg/dL Negative 8 Urine Specific [place] <=1.005 Low 1.010-1.030 8 Urine Blood NEGATIVE [...] 18 <SEE NOTE> . ................ <SEE NOTE> 10, 19 Note: INCLUDES TESTING <SEE NOTE> 10, [...] 33 Lymph % 34.0 % 20.0-42.0 33 Jackson % 7.2 % 0.0-10.0 33 Eo% 13.6 % High 0.0-6.6 33 Bas% 1.2 % High 0.0-1.1 33 Neut# 2.27 K/uL 1.8-7.0 33 Lymph # 1.75 K/uL 1.0-4.0 33 Jackson # 0.37 K/uL 0.0-0.8 33 Eos # [...] Ketone NEGATIVE mg/dL Negative 37 Urine Specific [place] 1.010 1.010-1.030 37 Urine Blood NEGATIVE Negative [...] TRACE mg/dL High Negative 39 Urine Specific [place] 1.015 1.010-1.030 39 Urine Blood NEGATIVE Negative [...] for more aggressive treatment of glycemia. The [place] [employer] recommends that a primary goal [...] cannot be used interchangeably. Method: Siemens Dimension [place] Chemiluminescent immunoassay. 10 R19.4,R14.0 11 Method: Sediplast Modified Westergren 12 Performed at: [facility] [employer] [id number] Manager Of Development: Clementine Ann MD, Phone: [phone] Negative 0 - 19 Weak Positive [...] 6 - 9 Positive >9 Performed at: [address] [id number] Manager Of Development: Clementine Ann MD, Phone: [phone] Concentration Interpretation Follow-Up <16 - 50 ug/g Normal None >50 -120 ug/g Borderline Re-evaluate in 4-6 weeks >120 ug/g Abnormal Repeat as clinically indicated Performed at: [address] [id number] Manager Of Development: Clementine Ann MD, Phone: [phone] Performed at: [address] [id number] Manager Of Development: Jareth Mosquera MD, Phone: [phone] NO ENTERIC PATHOGENS ISOLATED 19 ................................................... [...] CLINICALLY INDICATED, PLEASE CONTACT THE [facility]OLOGY LAB[facility] ([phone]) WITHIN 3 DAYS OF THIS REPORT Testing Performed by: [facility] [place] [address] 32 INFCE Result Units: ug Elast./g Severe Pancreatic Insufficiency: <100 Moderate Pancreatic Insufficiency: 100 - 200 Normal: >200 Performed at: - [facility] [address] [id number] Manager Of Development: Jareth Mosquera MD, Phone: [phone] DROP OFF SPEC COLLECTED BY NURSE 34 Instrument flagged sample for slide review. Less than 10% Bands seen, no other immature WBC's seen. RBC morphology essentially normal. Platelet estimate=Normal 35 Thyroglobulin Antibody measured by Sanna Brocton Methodology 36 Performed at: - [facility] [address] [id number] Manager Of Development: Clementine Ann MD, Phone: [phone] 37 BACK PAIN 38 URINE, CLEAN CATCH 39 DIFFICULTY URINATING 40 URINE, CLEAN CATCH 41 J02.8 42 BETA STREPTOCOCCUS GROUP A 43 PENICILLIN OR AMPICILLIN. 44 ERYTHROMYCIN MAY BE USED IN PENICILLIN ALLERGIC INDIVIDUALS Procedures Date CPT Code Description Status Comment 08/09/2017 08161 Measurement Post Voiding Completed Residual Urine By Ultrasound,Non-Imaging 06/19/2017 34976 Cystoscopy Completed 06/19/2017 68252 Measurement Post Voiding Completed Residual Urine By Ultrasound,Non-Imaging 06/19/2017 33406 complex uroflowmetry electronic Completed 06/05/2017 67387 Measurement Post Voiding Completed Residual Urine By Ultrasound,Non-Imaging 06/05/2017 37713 complex uroflowmetry electronic Completed 04/17/2017 49415 Brief Emotional/Behav Completed Assessment W/ Scoring Doc Per Standard Inst 01/05/2017 39310 Breath Hydrogen Test Completed 12/05/2016 25 Disability Form Completed 07/18/2016 11336 Hemorrhoidectomy Internal Completed Ligation Other Than Rubber Band Multipl 07/18/2016 04442 Colonoscopy Completed 07/18/2016 Colonoscopy Completed Document: 07/18/16 - Operative Report 07/04/2016 51604 EGD With Biopsy Completed 05/29/2006 Colonoscopy Completed Encounters Type Date Location Provider CPT E/M Dx Office Visit 12/27/2017 4:30p Family Medicine Yaquelin Helton PNP-SONIDO, 13033 G62.9 INSTITUTIONAL COMMODITY ANALYST, Ibclc M62.830 Office Visit 12/05/2017 11:45a Family Yaquelin Dumont PNP-BC, 49478 F41.9 INSTITUTIONAL COMMODITY ANALYST, Ibclc M54.5 Z13.1 Z13.220 Z13.0 Office Visit 10/15/2017 2:00p Family Medicine Yaquelin Helton PNP-BC, 89769 A08.4 INSTITUTIONAL COMMODITY ANALYST, Ibclc Office Visit 09/27/2017 11:00a Family Medicine Family Nurse 17449 R03.0 Office Visit 09/11/2017 2:00p Family Medicine Yaquelin Helton PNP-BC, 78878 M54.5 INSTITUTIONAL COMMODITY ANALYST, Ibclc F41.9 R03.0 Office Visit 08/28/2017 1:30p Family Medicine Yaquelin Helton PNP-BC, 94931 M54.5 INSTITUTIONAL COMMODITY ANALYST, Ibclc Office Visit 08/09/2017 11:45a Urology Clarke Zhang M.D. 43202 R35.1 N40.1 Office Visit 06/20/2017 11:00a Family Medicine Yaquelin Helton PNP-BC, 31689 G62.9 INSTITUTIONAL COMMODITY ANALYST, Ibclc M54.5 Office Visit 06/19/2017 11:15a Urology Clarke Zhang M.D. 68637 R35.1 N40.1 Office Visit 06/05/2017 2:00p Urology Clarke Zhang M.D. 84002 Z12.5 N40.1 R33.9 Office Visit 05/23/2017 11:45a Family Medicine Yaquelin Helton PNP-BC, 95901 M25.551 INSTITUTIONAL COMMODITY ANALYST, Ibclc F41.9 M54.5 G47.00 R39.12 I83.93 Office Visit 04/30/2017 1:00p Family Medicine Claudio Peña FNP 51526 I83.93 Office Visit 04/17/2017 3:30p Family Medicine Yaquelin Helton PNP-BC, 71593 F41.9 INSTITUTIONAL COMMODITY ANALYST, Ibclc Office Visit 02/28/2017 10:15a Family Medicine Yaquelin Helton PNP-BC, 88652 M54.5 INSTITUTIONAL COMMODITY ANALYST, Ibclc M25.512 Office Visit 12/20/2016 3:30[place] [address] K22.70 R14.0 R19.4 R10.9 K59.00 Office Visit 11/27/2016 1:45p Family Medicine Claudio Peña FNP 08309 M54.5 Office Visit 11/21/2016 10:00a Family Medicine Yaquelin Helton PNP-BC, 18890 M54.5 INSTITUTIONAL COMMODITY ANALYST, Ibclc M62.830 Office Visit 11/16/2016 1:15p Family Medicine Claudio Peña, INSTITUTIONAL COMMODITY ANALYST 16299 M54.5 G47.09 R53.83 Office Visit 10/11/2016 2:30p Family Medicine Yaquelin Helton PNP-BC, 53213 M62.830 INSTITUTIONAL COMMODITY ANALYST, Ibclc N32.9 F31.89 Office Visit 09/07/2016 9:30a Family Medicine Yaquelin Helton PNP-BC, 79479 M62.830 INSTITUTIONAL COMMODITY ANALYST, Ibclc Office Visit 08/10/2016 2:45p Surgical Office Efraín Jaquez 23026 K64.5 Valentin Yusuf Z12.11 K62.3 Office Visit 07/31/2016 10:30a Surgical Office Jace Wallace MD,[facility] 55450 K64.5 Office Visit 07/21/2016 9:15[place] [address] K22.70 K29.70 K59.04 Office Visit 07/06/2016 1:30p Surgical Office Efraín Jaquez, 69766 K62.3 Valentin Office Visit 06/26/2016 10:15a Family Medicine Yaquelin Helton PNP-BC, 88729 J02.8 INSTITUTIONAL COMMODITY ANALYST, Ibclc M54.5 Office Visit 06/16/2016 11:15[place] [address] K59.04 K62.3 Office Visit 06/14/2016 1:00p Family Medicine Yaquelin Helton PNP-BC, 64847 M54.5 INSTITUTIONAL COMMODITY ANALYST, Ibclc K59.00 G24.01 Office Visit 05/31/2016 2:00p Family Medicine Yaquelin Helton PNP-BC, 26265 K59.00 INSTITUTIONAL COMMODITY ANALYST, Ibclc N81.6 F31.9 G24.01 Plan of Care 12/27/2017 - Yaquelin Helton PNP-BC, INSTITUTIONAL COMMODITY ANALYST, YnqroF37.9 Polyneuropathy, unspecifiedComments:I'm not really sure how much I can do for you. I'd wait and see what [facility] says. I do think you probably went back to work to quickly so I'm taking you out for a least a couple weeks to let your back settle back down. if it doesn't you may have to consider giving it up.M62.830 Muscle spasm of backAllNew Medication:Skelaxin 800 mg
--- NOTE | 2018-01-21 21:30 | ED ---
HPI Chest Pain - HPI Summary HPI Summary: 47 yr old male with the complaint of chest pain. Onset over the weekend, that comes and goes, worse with eating. Pain goes into the back between shoulder blades. Associated with sweating, nausea, vomiting. Denies SOB. No other complaints. History of Spivey's esophagus. - History of Current Complaint Time Seen by Provider: 01/21/18 21:18 - Allergy/Home Medications Allergies/Adverse Reactions: Allergies Allergy/AdvReac Type Severity Reaction Status Date / Time MS Penicillins [PCN] Allergy Nausea And Verified 01/21/18 21:30 Vomiting MS Pregabalin [From Lyrica] Allergy See Comment Verified 01/21/18 21:30 PMH/Surg Hx/FS Hx/Imm Hx Psychiatric History: Reports: Hx Bipolar Disorder - Surgical History Surgery Procedure, Year, and Place: Back surgeries. Dorsal Column Stimulator, appy, varicocele repair, speed banding for hemorrhoids Infectious Disease History: Denies: Hx Clostridium Difficile, Hx Hepatitis, Hx Human Immunodeficiency Virus (HIV), Hx of Known/Suspected MRSA, Hx Shingles, Hx Tuberculosis, Hx Known/ Suspected VRE, Hx Known/Suspected VRSA, History Other Infectious Disease, Traveled Outside the [place] in Last 30 Days - Family History Known Family History: Negative: Renal Disease - Social History Alcohol Use: None Substance Use Type: Reports: None Smoking Status (MU): Former Smoker Amount Used/How Often: 1 ppd Length of Time of Smoking/Using Tobacco: 10 -15 years Have You Smoked in the Last Year: No Review of Systems Constitutional: Negative Positive: Chest Pain Positive: Nausea All Other Systems Reviewed And Are Negative: Yes Physical Exam Triage Information Reviewed: Yes Vital Signs Reviewed: Yes Appearance: Positive: Well-Appearing, No Pain Distress Skin: Positive: Warm, Skin Color Reflects Adequate Perfusion Head/Face: Positive: Normal Head/Face Inspection Eyes: Positive: EOMI ENT: Positive: Normal ENT inspection Neck: Positive: Nontender Respiratory/Lung Sounds: Positive: Clear to Auscultation, Breath Sounds Present Cardiovascular: Positive: RRR. Negative: Murmur Abdomen Description: Positive: Nontender Musculoskeletal: Positive: Strength/ROM Intact. Negative: Edema Left, Edema Right Neurological: Positive: Sensory/Motor Intact, Alert, Oriented to Person Place, Time, CN Intact II-III Psychiatric: Positive: Normal - [place] Coma Scale Best Eye Response: 4 - Spontaneous Best Motor Response: 6 - Obeys Commands Best Verbal Response: 5 - Oriented Coma Scale Total: 15 Diagnostics - Laboratory Lab Statement: Any lab studies that have been ordered have been reviewed, and results considered in the medical decision making process. - EKG 01/21/18 Cardiac Rate: NL EKG Rhythm: Sinus Rhythm ST Segment: Normal Ectopy: None Chest Pain Course/Dx - Course Course Of Treatment: 47 yr old with chest pain. [facility] DR Rodriguez and he is aware of this patient coming by ambulance. - Diagnoses Provider Diagnoses: Chest pain Discharge - Sign-Out/Discharge Documenting (check all that apply): Patient Departure All imaging exams completed and their final reports reviewed: No Studies - Discharge Plan Condition: Good Disposition: TRANS HIGHER LVL OF CARE FAC Referrals: Yaquelin Helton NP [Primary Care Provider] - - Billing Disposition and Condition Condition: GOOD Disposition: Trans Higher Lvl of Care Fac
[2018-01-21 21:41] VITALS: BP 127/78
== END 2018-01-21 21:50 | disposition short-term general hospital (02) ==
LOC: UCCORT 20:57
DX: R07.9 Chest pain, unspecified (principal); Z88.0 Allergy status to penicillin; Z88.8 Allergy status to other drugs, medicaments and biological substances; Z87.891 Personal history of nicotine dependence
CPT/HCPCS: 93005; 99213; G0463

== ENCOUNTER → 2018-02-21 19:47 | Emergency (ER) | payer BC, OTHER ==
[~2018-02-21 19:47] MED LIST: Al Hydrox/Mg Hydrox/Simet LIQ* 30 ML UDC PO ONE; Lidocaine 2% VISCOUS* 15 ML UDC PO ONE
--- OUTSIDE RECORDS SUMMARY | 2018-02-21 20:04 | XMS REPORT ---
:1970 External Reference #:[id number] Author Organization [facility] Address [address] [place] [address] Phone [phone] Care Team Providers Name Role Phone Yaquelin Helton, PNPRyderBC, [employer]HOU[employer]ER, Ibclc Care Team Information Rn Endoscopy Unavailable Yaquelin Helton, PNP-SONIDO, [employer]HOU[employer]ER, Ibclc Primary Care Physician Unavailable Payers Type Date Identification Numbers Payment Provider Subscriber Commercial Policy Number: [id number] [employer] Danilo Nicole PayID: [id number] [address] [place] [address] Commercial Expires: 2018 Policy Number: [place] Medicaid Danilo Castrejon [id number] Corey PayID: [id number] [address] [place] [address] Medigap Part B Expires: 2018 Policy Number: Brayan Nicole [id number] PayID: [id number] [address] [address] [place] [address] Problems Date Description Provider Status Onset: 06/16/2016 Chronic idiopathic constipation Victor Manuel Flaherty MD Active Onset: 07/21/2016 Spivey's esophagus Victor Manuel Flaherty MD Active Onset: 07/21/2016 Gastroduodenitis Victor Manuel Flaherty MD Active Onset: 07/24/2016 Thrombosed external hemorrhoids Jace Wallace MD,FACS Active Onset: 01/22/2018 Epigastric pain Gunner Still MD Active Onset: 06/19/2017 Nocturia Clarke Zhang M.D. [...] Form Strength Qnty SIG Indications Ordering Provider Nifedipine 02/14/ Active Capsules 10mg 90caps 1 tablet po Cheko2017 tid MD Gunner Linzess 01/22/ Active Capsules 145mcg 90caps 1 cap by R14.0 Cheko2017 mouth every MD Gunner night, hold for unformed bm Ventolin HFA 01/04/ Active Aerosol 108(90Base 18gm Inhale 2 R05 Jhon 2017 ) mcg/Act puffs by RENE Spencer mouth every 3 hours as needed for shortness of breath Benzonatate 01/04/ Active Capsules 100mg 30caps take 1 R05 John 2017 capsule by RENE Spencer mouth every 8 hours for coughing as needed Paroxetine HCL 06/29/ Active Tablets 10mg 90tabs take one Danie 2017 tablet by Yaquelin, mouth every PNP-BC, day with [employer], Ibclc 40mg tablet Paroxetine HCL 05/23/ Active Tablets 40mg 90tabs 1 by mouth F41.9 Day Helton every day Yaquelin, with 10mg PNP-BC, tablet [employer], Ibclc Clonazepam 05/23/ Active Tablets 0.5mg 60tabs take 1 to 2 G47.00 Day Helton at bedtime Yaquelin, parveen PNP-BC, #: [id number] [employer]HOU[employer]ER, Ibclc F41.9 Jobst Active 04/30/2017 Active Misc 2Pair 2 pairs for I83.93 Clune, 15-20MMHG/Knee moderate (RT Jenniferleigh, High/Closed leg) and [employer]ER Toe/Medium severe (lt leg) varicosities Benadryl Allergy Active Capsules 2 30caps using otc Yaquelin Helton, 5 prn PNP-BC, [employer]HOU[employer]ER, m Ibclc g Oxycodone-Acetam Active Tablets 5 1 tablet Unknown inophen - every 6 hours 3 as needed 2 5 m g Skelaxin 12/27/2017 Hx Tablets 8 60tabs 1 by mouth Yaquelin Helton, - 0 three times a PNP-BC, [employer]HOU[employer], 02/19/2018 0 day for Ibclc m muscle g spasms.. Linzess 09/27/2017 Hx Capsules 2 90caps 1 by mouth Victor Manuel Flaherty MD - 9 every day 01/22/2018 0 prn per m patient c g Trospium 08/09/2017 Hx Caps ER 6 [...] , - . mouth twice a PNP-BC, [employer]HOU[employer], 09/11/2017 5 day as for 2 Ibclc m weeks and g then as needed Multivitamin 04/17/2017 Hx Tablets 30tabs 1 by mouth Yaquelin Helton, Adult - every day PNP-BC, [employer], 09/11/2017 Ibclc Vitamin C 04/17/2017 Hx Chewtabs 5 1 by mouth Yaquelin Helton, - 0 every day PNP-BC, [employer]HOU[employer]ER, 09/11/2017 0 Ibclc m g Paroxetine HCL 04/17/2017 Hx Tablets 2 30tabs 1 by mouth F41.9 Yaquelin Helton, - 0 every day PNP-BC, [employer]HOU[employer]ER, 05/23/2017 m Ibclc g Fexofenadine HCL 01/08/2017 Hx Tablets 1 30tabs 1 by mouth at Yaquelin Helton, - 8 night PNP-BC, [employer]HOU[employer]ER, 09/11/2017 0 Ibclc m g Fluticasone 01/08/2017 Hx Suspensio 5 16gm 2 sprays each Yaquelin Helton , Propionate - n 0 nare once a PNP-BC, [employer], 09/11/2017 m day Ibclc c g / A c t Ibuprofen 01/02/2017 Hx Tablets 6 240tab 1 tab three Yaquelin Helton, - 0 s times a day PNP-BC, [employer]HOU[employer]ER, 02/28/2017 0 as needed Ibclc m g Esomeprazole 12/20/2016 Hx Capsules 2 90caps 1 cap by K22.70 Victor Manuel Flaherty MD Magnesium - DR 0 mouth bid - 02/18/2018 m increased by g ER Vicodin ES 11/16/2016 Hx Tablets 7 40tabs one tablet M54.5 Clune, - . every 6 hours Claudio, 01/02/2017 5 as needed for [employer]HOU[employer] - moderate to 3 severe pain 0 Reference #: [id number] m g Ziprasidone HCL 10/11/2016 Hx Capsules 2 30caps 1 tab po qhs Yaquelin Helton, 0 PNP-BC, P[employer]HOU[employer]ER, m Ibclc g Metaxalone 10/11/2016 Hx Tablets 8 60tabs 1 tab by M62.830 Yaquelin Helton, - 0 mouth three PNP-BC, [employer]HOU[employer]ER, 02/28/2017 0 times a day Ibclc m as needed for g pain Cyclobenzaprine 09/07/2016 Hx Tablets 1 45tabs 1 by mouth M62.830 Yaquelin Helton HCL - 0 three times a PNP-BC, [employer]HOU[employer]ER, 10/11/2016 m day as needed Ibclc g [...] Yaquelin Helton, 5 by mouth on PNP-BC, POWERHOU[employer]ER, 0 day 1 then 1 Ibclc m tab by mouth g every days 2-5 Vitamin E-400 06/26/2016 Hx Capsules 4 3 by mouth Yaquelin Helton, - 0 every day PNP-BC, P[employer]HOU[employer]ER, 10/11/2016 0 Ibclc U n i t Oxycodone-Acetam 06/26/2016 Hx Tablets 5 30tabs 1-2 tabs by M54.5 Jace Wallace, inophen - - mouth every 6 MYRNA PHIPPS 01/02/2017 3 hours as 2 needed for 5 yosef m g Golytely 06/16/2016 Hx Solution 2 4000ml drink half K59.04 Victor Manuel Flaherty MD Rec 3 the evening 6 before and g half the m morning of the procedure (1 cup every 10') Dulcolax 06/16/2016 Hx Tablets 5 4tabs 4 tablets K59.04 Victor Manuel Flaherty MD DR m taken a 8pm g the day before [...] Yaquelin Helton, - m day as needed PNP-BC, [employer]HOU[employer]ER, 01/02/2017 g Reference #: [id number] [id number] Vitamin D3 High Hx Capsules 1 1 [...] Yaquelin Helton inophen - - two tablets ZACKARY MERRITTP, 09/11/2017 3 by mouth Ibclc 2 every 6 hours 5 as needed for m pain g reference #: [id number] Tamsulosin HCL Hx Capsules 0 90caps 1 tab daily Vicente - Satish Mir M.D. 06/20/2017 4 m g Melatonin Hx Capsules 1 1 by mouth Unknown - 0 every at 02/12/2018 m bedtime g Cyclobenzaprine Hx Tablets 1 90tabs 1 tab by Yaquelin Helton HCL - 0 mouth three PNP-BC, [employer]HOU[employer]ER, 01/04/2018 m times a day Ibclc g as needed Tylenol PM Extra Hx Tablets 5 no more than Unknown Strength - 0 2 tabs po at 01/04/2018 0 night - 2 5 m g Meloxicam Hx Tablets 7 Take One Unknown - . Tablet By 01/22/2018 5 Mouth Twice A m Day For 2 g Weeks Then as Needed Famotidine Hx Tablets 2 1 by mouth Unknown - 0 twice a day 02/12/2018 m g Immunizations CPT Code Status Date Vaccine Lot # 11519 Given 01/07/2018 Influenza Virus Vaccine, Quadrivalent, 36 Mos+, [id number] Given 01/25/2017 Influenza Virus Vaccine Quadrivalent Iiv4 Split [id number] Preser Free Id Vital Signs Date Vital Result Comment 02/12/2018 BP Systolic Sitting Right Arm 128 mmHg BP Diastolic Sitting Right Arm 78 mmHg Body Temperature 98.0 F Heart Rate 75 /min Weight 236.50 lb O2 % BldC Oximetry 95 % 01/22/2018 BP Systolic Sitting Left Arm 114 mmHg BP Diastolic Sitting Left Arm 82 mmHg Heart Rate 74 /min Respiratory Rate 16 /min Height 70 inches 5'10" Weight 232.00 lb BMI (Body Mass Index) 33.3 kg/m2 BSA (Body Surface Area) 2.22 m2 [place] body weight in kilograms 75 01/04/2018 BP Systolic Sitting Left Arm 112 mmHg BP Diastolic Sitting Left Arm 72 mmHg Heart Rate 78 /min Respiratory Rate 20 /min Height 70 inches 5'10" Weight 231.00 lb BMI (Body Mass Index) 33.1 kg/m2 BSA (Body Surface Area) 2.22 m2 [place] body weight in kilograms 75 O2 % BldC Oximetry 95 % 12/27/2017 BP Systolic Sitting Left Arm 142 mmHg BP Diastolic Sitting Left Arm 92 mmHg Heart Rate 88 /min Height 70 inches 5'10" Weight 232.38 lb BMI (Body Mass Index) 33.3 kg/m2 BSA (Body Surface Area) 2.22 m2 [place] body weight in kilograms 75 O2 % [...] kg/m2 BSA (Body Surface Area) 2.18 m2 [place] body weight in kilograms 75 08/28/2017 BP Systolic 122 mmHg BP Diastolic 78 mmHg Heart Rate 72 /min Height 70 inches 5'10" Weight 222.00 lb BMI (Body Mass Index) 31.9 kg/m2 BSA (Body Surface Area) 2.18 m2 [place] body weight in kilograms 75 O2 % BldC Oximetry 97 % 08/09/2017 BP Systolic 117 mmHg BP Diastolic 82 mmHg Body Temperature 97.3 F Heart Rate 72 /min Respiratory Rate 18 /min Height 70 inches 5'10" Weight 216.00 lb BMI (Body Mass Index) 31.0 kg/m2 BSA (Body Surface Area) 2.16 m2 [place] body weight in kilograms 75 O2 % BldC Oximetry 97 % Pain Level 0 06/20/2017 BP Systolic 112 mmHg BP Diastolic 72 mmHg Body Temperature 97.0 F Heart Rate 84 /min Respiratory Rate 17 /min Height 70 inches 5'10" Weight 212.00 lb BMI (Body Mass Index) 30.4 kg/m2 BSA (Body Surface Area) 2.14 m2 [place] body weight in kilograms 75 O2 % BldC Oximetry 98 % 06/19/2017 BP Systolic 129 mmHg BP Diastolic 91 mmHg Body Temperature 97.7 F Heart Rate 73 /min Respiratory Rate 17 /min Height 70 inches 5'10" Weight 212.12 lb BMI (Body Mass Index) 30.4 kg/m2 BSA (Body Surface Area) 2.14 m2 [place] body weight in kilograms 75 O2 % BldC Oximetry 99 % Pain Level 3 Low back 06/05/2017 BP Systolic 119 mmHg BP Diastolic 69 mmHg Body Temperature 98.1 F Heart Rate 72 /min Respiratory Rate 14 /min Height 70 inches 5'10" Weight 209.12 lb BMI (Body Mass Index) 30.0 kg/m2 BSA (Body Surface Area) 2.13 m2 [place] body weight in kilograms 75 Pain Level 3 chronic back pain per pt 05/23/2017 BP Systolic 122 mmHg BP Diastolic 80 mmHg Body Temperature 97.9 F Heart Rate 76 /min Respiratory Rate 17 /min Height 70 inches 5'10" Weight 206.50 lb BMI (Body Mass Index) 29.6 kg/m2 BSA (Body Surface Area) 2.12 m2 [place] body weight in kilograms 75 O2 % BldC Oximetry 97 % 04/30/2017 BP Systolic Sitting Left Arm 118 mmHg BP Diastolic Sitting Left Arm 72 mmHg Heart Rate 80 /min Respiratory Rate 18 /min Height 70 inches 5'10" Weight 205.25 lb BMI (Body Mass Index) 29.4 kg/m2 BSA (Body Surface Area) 2.11 m2 [place] body weight in kilograms 75 04/17/2017 BP Systolic 112 mmHg BP Diastolic 76 mmHg Body Temperature 96.7 F Heart Rate 76 /min Height 70 inches 5'10" Weight 205.00 lb BMI (Body Mass Index) 29.4 kg/m2 BSA (Body Surface Area) 2.11 m2 [place] body weight in kilograms 75 O2 % BldC Oximetry 97 % 02/28/2017 BP Systolic 112 mmHg BP Diastolic 64 mmHg Heart Rate 78 /min Height 70 inches 5'10" Weight 192.00 lb BMI (Body Mass Index) 27.5 kg/m2 BSA (Body Surface Area) 2.05 m2 [place] body weight in kilograms 75 12/20/2016 BP Systolic Sitting Left Arm 116 mmHg BP Diastolic Sitting Left Arm 70 mmHg Heart Rate 73 /min Respiratory Rate 16 /min Height 70 inches 5'10" Weight 182.00 lb BMI (Body Mass Index) 26.1 kg/m2 BSA (Body Surface Area) 2.01 m2 [place] body weight in kilograms 75 11/27/2016 BP Systolic 138 mmHg BP Diastolic 88 mmHg Height 70 inches 5'10" Weight 185.00 lb BMI (Body Mass Index) 26.5 kg/m2 BSA (Body Surface Area) 2.02 m2 [place] body weight in kilograms 75 11/21/2016 BP Systolic 108 mmHg BP Diastolic 62 mmHg Height 70 inches 5'10" [place] body weight in kilograms 75 11/16/2016 BP Systolic 116 mmHg BP Diastolic 78 mmHg Heart Rate 74 /min Height 70 inches 5'10" Weight 181.00 lb BMI (Body Mass Index) 26.0 kg/m2 BSA (Body Surface Area) 2.00 m2 [place] body weight in kilograms 75 10/11/2016 BP Systolic 154 mmHg BP Diastolic 76 mmHg Heart Rate 79 /min Height 70 inches 5'10" Weight 179.00 lb BMI (Body Mass Index) 25.7 kg/m2 BSA (Body Surface Area) 1.99 m2 [place] body weight in kilograms 75 09/07/2016 BP Systolic 132 mmHg BP Diastolic 76 mmHg Body Temperature 98.0 F Heart Rate 60 /min Height 70 inches 5'10" Weight 177.00 lb BMI (Body Mass Index) 25.4 kg/m2 BSA (Body Surface Area) 1.98 m2 [place] body weight in kilograms 75 O2 % [...] kg/m2 BSA (Body Surface Area) 1.98 m2 [place] body weight in kilograms 75 06/16/2016 BP [...] kg/m2 BSA (Body Surface Area) 1.99 m2 [place] body weight in kilograms 75 Results Test Date Test Result H/L Range Note Laboratory test finding 02/20/2018 Sedimentation Rate 7 mm/hr 0-15 1, 2 C-Reactive Protein,Quant < 2.9 mg/L <3.0 1 Laboratory test finding 02/14/2018 Troponin-I < 0.015 ng/mL 3, 4 CBC W/Automated Diff 02/13/2018 White Blood Count 6.6 K/uL 3.4-10.5 3 Red Blood Count 4.52 M/uL 4.20-5.80 3 Hemoglobin 14.5 gm/dL 12.8-17.0 3 Hematocrit 40.6 % 38.0-48.0 3 Mean Cell Volume 89.8 fl 80.0-96.0 3 Mean Corpuscular HGB 32.1 pg 27.0-33.0 3 Mean Corpuscular HGB Conc 35.7 g/dL 31.7-36.0 3 Platelet Count 240 K/uL 155-360 3 Red Cell Distri Width SD 43.3 fl 36-51 3 Red Cell Distri Width %CV 13.6 % 11.6-15.8 3 Mean Platelet Volume 10.3 fL 6.6-10.6 3 Neut% 48.6 % 33.0-73.0 3 Lymph % 32.7 % 20.0-42.0 3 [place] % 9.0 % 0.0-10.0 3 Eo% 8.9 % High 0.0-6.6 3 Bas% 0.8 % 0.0-1.1 3 Neut# 3.22 K/uL 1.8-7.0 3 Lymph # 2.17 K/uL 1.0-4.0 3 [place] # 0.60 K/uL 0.0-0.8 3 Eos # 0.59 K/uL High 0.0-0.5 3 Baso # 0.05 K/uL 0.0-0.1 3 CBC W/Automated Diff 02/12/2018 White Blood Count 5.9 K/uL 3.4-10.5 5 Red Blood Count 4.45 M/uL 4.20-5.80 5 Hemoglobin 14.4 gm/dL 12.8-17.0 5 Hematocrit 40.3 % 38.0-48.0 5 Mean Cell Volume 90.6 fl 80.0-96.0 5 Mean Corpuscular HGB 32.4 pg 27.0-33.0 5 Mean Corpuscular HGB Conc 35.7 g/dL 31.7-36.0 5 Platelet Count 239 K/uL 155-360 5 Red Cell Distri Width SD 43.4 fl 36-51 5 Red Cell Distri Width %CV 13.5 % 11.6-15.8 5 Mean Platelet Volume 11.0 fL High 6.6-10.6 5 Neut% 54.7 % 33.0-73.0 5 Lymph % 26.9 % 20.0-42.0 5 [place] % 8.0 % 0.0-10.0 5 Eo% 9.7 % High 0.0-6.6 5 Bas% 0.7 % 0.0-1.1 5 Neut# 3.23 K/uL 1.8-7.0 5 Lymph # 1.59 K/uL 1.0-4.0 5 [place] # 0.47 K/uL 0.0-0.8 5 Eos # 0.57 K/uL High 0.0-0.5 5 Baso # 0.04 K/uL 0.0-0.1 5 Comprehensive Metabolic Panel 02/12/2018 Glucose 99 mg/dL 74-106 5 BUN 12 mg/dL 7-18 5 Creatinine 0.9 mg/dL 0.6-1.3 5 Glom Filtration Rate, Estimate >60 mL/min >60 5 If >60 mL/min >60 5, 6 BUN/Creat 13.3 ratio 5 Sodium 139 mmol/L 136-145 5 Potassium 3.7 mmol/L 3.5-5.1 5 Chloride 108 mmol/L High 98-107 5 Carbon Dioxide 26 mmol/L 21-32 5 Anion Gap 5 mEq/L Low 8-16 5 Calcium 8.6 mg/dL 8.5-10.1 5 Total Protein 7.8 g/dL 6.4-8.2 5 Albumin 4.0 g/dL 3.4-5.0 5 Globulin 3.8 g/dL 1.9-4.3 5 Alb/Glob 1.1 ratio 5 Bilirubin,Total 0.5 mg/dL 0.2-1.0 5 Sgot/Ast 29 U/L 15-37 5 SGPT/Alt 40 U/L 12-78 5 Alkaline Phosphatase 83 U/L 45-117 5 Reflex add FT3? Y 5 Reflex add FT4? Y 5 Heavy Metals Profile I,Blood 02/12/2018 Lead,Blood None Detected g/dL 0 -4 5, 7 Arsenic,Blood 4 ug/L 2-23 5, 8 Mercury (B) None Detected ug/L 0.0-14.9 5, 9 TSH Reflex FT4 And/Or FT3 02/12/2018 Thyroid Stim Hormone 1.04 uIU/mL 0.30-4.20 5 Reflex add FT3? Y 5 Reflex add FT4? Y 5 Lyme AB/Western Blot 02/12/2018 Lyme Total AB/Reflex < 0.91 ISR 0.00- 0.90 5, 10 Reflex To WB Lyme Disease Antibody,QT,Igm < 0.80 index 0.00-0.79 5, 11 Laboratory test 02/12/2018 Treponema Antibody Negative Negative 5, 12 finding [place] [facility] test 01/21/2018 D-Dimer, Quantitative < 0.27 ug/mL 13, 14 finding Differential-WBC 01/21/2018 Total Cells Counted 100 #CELLS 13 Confirm Band% 1 % 0-8 13 Neutrophils% 51 % 33-73 13 Lymph% 32 % 20-42 13 Atypical Lymph% 2 % 0-7 13 Monocyte% 8 % 0-10 13 Eosinophil% 6 % High 0-5 13 Platelet Estimate NORMAL 13 Anisocytosis 0-1+ 13 Toxic Granulation 0-1+ 13 Laboratory test finding 01/21/2018 Slide Review DIFF ORDERED 13 CBC W/Automated Diff 01/21/2018 White Blood Count 7.0 K/uL 3.4-10.5 13 Red Blood Count 4.49 M/uL 4.20-5.80 13 Hemoglobin 14.3 gm/dL 12.8-17.0 13 Hematocrit 40.1 % 38.0-48.0 13 Mean Cell Volume 89.3 fl 80.0-96.0 13 Mean Corpuscular HGB 31.8 pg 27.0-33.0 13 Mean Corpuscular HGB Conc 35.7 g/dL 31.7-36.0 13 Platelet Count 234 K/uL 155-360 13 Red Cell Distri Width SD 42.3 fl 36-51 13 Red Cell Distri Width %CV 13.2 % 11.6-15.8 13 Mean Platelet Volume 9.6 fL 6.6-10.6 13 Neut% 52.1 % 33.0-73.0 13 Lymph % 31.1 % 20.0-42.0 13 [place] % 10.6 % High 0.0-10.0 13 Eo% 5.6 % 0.0-6.6 13 Bas% 0.6 % 0.0-1.1 13 Neut# 3.65 K/uL 1.8-7.0 13 Lymph # 2.18 K/uL 1.0-4.0 13 [place] # 0.74 K/uL 0.0-0.8 13 Eos # 0.39 K/uL 0.0-0.5 13 Baso # 0.04 K/uL 0.0-0.1 13 Laboratory test finding 01/21/2018 Lipase 117 U/L 56-289 13 Troponin-I < 0.015 ng/mL 13, 15 Comprehensive Metabolic Panel 01/21/2018 Glucose 91 mg/dL 74-106 13 BUN 12 mg/dL 7-18 13 Creatinine 0.9 mg/dL 0.6-1.3 13 Glom Filtration Rate, Estimate >60 mL/min >60 13 If >60 mL/min >60 13, 16 BUN/Creat 13.3 ratio 13 Sodium 143 mmol/L 136-145 13 Potassium 4.0 mmol/L 3.5-5.1 13 Chloride 107 mmol/L 98-107 13 Carbon Dioxide 30 mmol/L 21-32 13 Anion Gap 6 mEq/L Low 8-16 13 Calcium 8.2 mg/dL Low 8.5-10.1 13 Total Protein 7.2 g/dL 6.4-8.2 13 Albumin 3.4 g/dL 3.4-5.0 13 Globulin 3.8 g/dL 1.9-4.3 13 Alb/Glob 0.9 ratio 13 Bilirubin,Total 0.4 mg/dL 0.2-1.0 13 Sgot/Ast 27 U/L 15-37 13 SGPT/Alt 38 U/L 12-78 13 Alkaline Phosphatase 83 U/L 45-117 13 Glycohemoglobin A1c 12/05/2017 Glycohemoglobin (A1c) 5.2 % 4.2-6.3 17, 18 eAG 103 mg/dL 17 LDL Cholesterol Profile 12/05/2017 Cholesterol 159 mg/dL <200 17, 19 Triglycerides 241 mg/dL High <150 17, 20 HDL Cholesterol 34 mg/dL Low >40 17, 21 LDL-Cholesterol 77 mg/dL < 100 17, 22 CBC W/Automated Diff 12/05/2017 White Blood Count 7.2 K/uL 3.4-10.5 17 Red Blood Count 4.68 M/uL 4.20-5.80 17 Hemoglobin 15.1 gm/dL 12.8-17.0 17 Hematocrit 43.2 % 38.0-48.0 17 Mean Cell Volume 92.3 fl 80.0-96.0 17 Mean Corpuscular HGB 32.3 pg 27.0-33.0 17 Mean Corpuscular HGB Conc 35.0 g/dL 31.7-36.0 17 Platelet Count 220 K/uL 155-360 17 Red Cell Distri Width SD 43.9 fl 36-51 17 Red Cell Distri Width %CV 13.3 % 11.6-15.8 17 Mean Platelet Volume 11.0 fL High 6.6-10.6 17 Neut% 57.7 % 33.0-73.0 17 Lymph % 27.0 % 20.0-42.0 17 [place] % 5.5 % 0.0-10.0 17 Eo% 9.2 % High 0.0-6.6 17 Bas% 0.6 % 0.0-1.1 17 Neut# 4.13 K/uL 1.8-7.0 17 Lymph # 1.93 K/uL 1.0-4.0 17 [place] # 0.39 K/uL 0.0-0.8 17 Eos # 0.66 K/uL High 0.0-0.5 17 Baso # 0.04 K/uL 0.0-0.1 17 Comprehensive Metabolic Panel 12/05/2017 Glucose 133 mg/dL High 74-106 17 BUN 12 mg/dL 7-18 17 Creatinine 1.0 mg/dL 0.6-1.3 17 Glom Filtration Rate, Estimate >60 mL/min >60 17 If >60 mL/min >60 17, 23 BUN/Creat 12.0 ratio 17 Sodium 141 mmol/L 136-145 17 Potassium 4.0 mmol/L 3.5-5.1 17 Chloride 107 mmol/L 98-107 17 Carbon Dioxide 24 mmol/L 21-32 17 Anion Gap 10 mEq/L 8-16 17 Calcium 8.9 mg/dL 8.5-10.1 17 Total Protein 7.5 g/dL 6.4-8.2 17 Albumin 3.8 g/dL 3.4-5.0 17 Globulin 3.7 g/dL 1.9-4.3 17 Alb/Glob 1.0 ratio 17 Bilirubin,Total 0.4 mg/dL 0.2-1.0 17 Sgot/Ast 21 U/L 15-37 17 SGPT/Alt 34 U/L 12-78 17 Alkaline Phosphatase 93 U/L 45-117 17 Laboratory test finding 06/05/2017 Prostate Specific 0.76 ng/mL < 4.0 24 , 25 Antigen Ua RFX Micro & Culture II 06/05/2017 Urine Color YELLOW Yellow 24 Urine Clarity CLEAR Clear 24 Urine Glucose - Dipstick NEGATIVE mg/dL Negative 24 Urine Bilirubin - Dipstick NEGATIVE Negative 24 Urine Ketone NEGATIVE mg/dL Negative 24 Urine Specific [place] <=1.005 Low 1.010-1.030 24 Urine Blood NEGATIVE Negative 24 Urine PH 6.5 6.5-7.5 24 Urine Protein - Dipstick NEGATIVE mg/dL Negative 24 Urine Urobilinogen - Dipstick 0.2 E.U./dL 0.2-1.0 24 Urine Nitrite - Dipstick NEGATIVE Negative 24 Urine Leuk Esterase NEGATIVE Negative 24 Laboratory test finding 12/21/2016 Sedimentation Rate 2 mm/hr 0-15 26, 27 Celiac Disease Comp AB 12/21/2016 Immunoglobulin A 265 mg/dL 90-386 26, 28 Profile Antigliadin Abs, IgG 2 units 0-19 26, 29 Antigliadin Abs, IgA 11 units 0-19 26, 30 Endomysial IgA Antibody Negative Negative 26 t-Transglutaminase IgA <2 U/mL 0-3 26, 31 t-Transglutaminase IgG <2 U/mL 0-5 26, 32 Laboratory test 12/21/2016 Calprotectin, Fecal < 16 ug/g 0-120 26, 33 finding Stool Culture 12/21/2016 Stool Culture NO ENTERIC PATHO 26, 34 <SEE NOTE> . ................ <SEE NOTE> 26, 35 Note: INCLUDES TESTING <SEE NOTE> 26, 36 . PLESIOMONAS, CAM <SEE NOTE> 26, 37 . ................ <SEE NOTE> 26, 38 . YERSINIA AND VIB <SEE NOTE> 26, 39 . SHOULD BE REQUES <SEE NOTE> 26, 40 Shiga Toxin 1 Antigen SHIGA TOXIN 1 NO <SEE NOTE> 26, 41 Shiga Toxin 2 Antigen SHIGA TOXIN 2 NO <SEE NOTE> 26, 42 Ova & Parasite 12/21/2016 Cryptosporidium Specific NEGATIVE FOR CRY 26 , 43 Antigen Screen Ag <SEE NOTE> Giardia Specific Antigen NEGATIVE FOR MAYRA <SEE NOTE> 26, 44 Fecal Fat, Qualitative 12/21/2016 Fats, Neutral Normal . 26, 45 Fats, Total Normal . 26, 46 Laboratory test 12/21/2016 C. Difficile Toxin B C-DIFF TOXIN B: 26, 47 finding By PCR <SEE NOTE> Vitamin B12 And 12/21/2016 Vitamin B12 335 pg/mL 193-986 26 Folate Folic Acid 18.5 ng/mL High 3.1-17.5 26 Laboratory test 12/21/2016 Pancreatic Elastase > 500.0 ug/g >200 26, 48 finding (Pe-1) Laboratory test 11/16/2016 Slide Review (SEE NOTE) 49, 50 finding CBS W/Automated Diff 11/16/2016 White Blood Count 5.2 K/uL 3.4-10.5 49 Red Blood Count 4.91 M/uL 4.20-5.80 49 Hemoglobin 15.8 gm/dL 12.8-17.0 49 Hematocrit 43.0 % 38.0-48.0 49 Mean Cell Volume 87.6 fl 80.0-96.0 49 Mean Corpuscular HGB 32.2 pg 27.0-33.0 49 Mean Corpuscular HGB Conc 36.7 g/dL High 31.7-36.0 49 Platelet Count 219 K/uL 150-400 49 Red Cell Distri Width SD 41.8 fl 36-51 49 Red Cell Distri Width %CV 13.4 % 11.6-15.8 49 Mean Platelet Volume 10.4 fL 6.6-10.6 49 Neut% 44.0 % 33.0-73.0 49 Lymph % 34.0 % 20.0-42.0 49 [place] % 7.2 % 0.0-10.0 49 Eo% 13.6 % High 0.0-6.6 49 Bas% 1.2 % High 0.0-1.1 49 Neut# 2.27 K/uL 1.8-7.0 49 Lymph # 1.75 K/uL 1.0-4.0 49 [place] # 0.37 K/uL 0.0-0.8 49 Eos # 0.70 K/uL High 0.0-0.5 49 Baso # 0.06 K/uL 0.0-0.1 49 Laboratory test 11/16/2016 Thyroid Stim Hormone 3.03 uIU/mL 0.30-4.20 49 finding Thyroid Antibodies 11/16/2016 Thyroglobulin 2.9 IU/mL High 0.0-0.9 49, 51 Antibody Thyroid Peroxidase Antibodies 16 IU/mL 0-34 49, 52 Ua RFX Micro & Culture II 11/15/2016 Urine Color YELLOW Yellow 53 Urine Clarity CLEAR Clear 53 Urine Glucose - Dipstick NEGATIVE mg/dL Negative 53 Urine Bilirubin - Dipstick NEGATIVE Negative 53 Urine Ketone NEGATIVE mg/dL Negative 53 Urine Specific [place] 1.010 1.010-1.030 53 Urine Blood NEGATIVE Negative 53 Urine PH 5.5 Low 6.5-7.5 53 Urine Protein - Dipstick NEGATIVE mg/dL Negative 53 Urine Urobilinogen - Dipstick 0.2 E.U./dL 0.2-1.0 53 Urine Nitrite - Dipstick NEGATIVE Negative 53 Urine Leuk Esterase NEGATIVE Negative 53 Source: URINE, CLEAN CAT <SEE NOTE> 53, 54 Ua RFX Micro & Culture II 07/21/2016 Urine Color YELLOW Yellow 55 Urine Clarity CLEAR Clear 55 Urine Glucose - Dipstick NEGATIVE mg/dL Negative 55 Urine Bilirubin - Dipstick NEGATIVE Negative 55 Urine Ketone TRACE mg/dL High Negative 55 Urine Specific [place] 1.015 1.010-1.030 55 Urine Blood NEGATIVE Negative 55 Urine PH 6.5 6.5-7.5 55 Urine Protein - Dipstick NEGATIVE mg/dL Negative 55 Urine Urobilinogen - Dipstick 0.2 E.U./dL 0.2-1.0 55 Urine Nitrite - Dipstick NEGATIVE Negative 55 Urine Leuk Esterase NEGATIVE Negative 55 Source: URINE, CLEAN CAT <SEE NOTE> 55, 56 Throat Strep Screen 06/26/2016 Throat Strep Screen BETA STREPTOCOCC <SEE 57, 58 NOTE> Quantity MODERATE 57 Recommended Therapy: PENICILLIN OR AM <SEE NOTE> 57, 59 Alternative Therapy: ERYTHROMYCIN MAY <SEE NOTE> 57, 60 1 R41.840 2 Method: Sediplast Modified Westergren 3 CHEST PAIN, FEELS LIKE SOMETHING IN THROAT 4 0.0 - 0.045 ng/mL: Normal 0.046 - 0.5 ng/mL: Suggestive 0.6 - 1.5 ng/mL: Consistent 5 R41.840 6 Note: Persistent reduction for 3 months or more in an eGFR <60 mL/min/1.73 m2 defines CKD. Patients with eGFR values >/=60 mL/min/1.73 m2 may also have CKD if evidence of persistent proteinuria is present. The original MDRD equation for estimated GFR is not valid for patients less than 18 years of age. Additional information may be found at www.[facility].org. 7 Testing performed by Inductively coupled plasma/Mass Spectrometry. Environmental Exposure: WHO Recommendation <20 Occupational Exposure: OSHA Lead Std 40 KARLO 30 Detection Limit=1 This test was developed and its performance characteristics determined by [facility]. It has not been cleared or approved by the Food and Drug Administration. 8 Detection Limit=1 9 Environmental Exposure: <15.0 Occupational Exposure: KARLO - Inorganic Mercury: 15.0 Detection Limit=1.0 10 Negative <0.91 Equivocal 0.91 - 1.09 Positive >1.09 11 Negative <0.80 Equivocal 0.80 - 1.19 Positive >1.19 IgM levels may peak at 3-6 weeks post infection, then gradually decline. Performed at: [facility] [id number] Audiology Assistant: Dominguez Gagnon MD, Phone: [phone] Performed at: [facility] [id number] Audiology Assistant: Clementine Ann MD, Phone: [phone] Performed at: [facility] [id number] Audiology Assistant: Dominguez Gagnon MD, Phone: [phone] 13 CHEST PAIN 14 <=0.49 ug/mL - Low likelihood of DIC, DVT or Pulmonary Embolism >0.49 ug/mL - Additional testing should be done to rule out DIC, DVT, or Pulmonary embolism as clinically indicated. ([facility] has established a 97.89% negative predictive value for thrombotic disease when a cutoff value of 0.5 ug/mL is used.) 15 0.0 - 0.045 ng/mL: Normal 0.046 - 0.5 ng/mL: Suggestive 0.6 - 1.5 ng/mL: Consistent 16 Note: Persistent reduction for 3 months or more in an eGFR <60 mL/min/1.73 m2 defines CKD. Patients with eGFR values >/=60 mL/min/1.73 m2 may also have CKD if evidence of persistent proteinuria is present. The original MDRD equation for estimated GFR is not valid for patients less than 18 years of age. Additional information may be found at www.kdoqi.org. 17 Z13.1, Z13.220, Z13.0 18 Elevated levels of HbA1c suggest the need for more aggressive treatment of glycemia. The [place] [employer] recommends that a primary goal of therapy should be a HbA1c of <7% and that physicians should re-evaluate the treatment regimen in patients with HbA1c values consistently >8%. 19 Reference Guidelines*: Desirable: ........... < 200 mg/dL Borderline High: ..... 200-239 mg/dL High: ................ >=240 mg/dL * The National Cholesterol Education Program (NCEP) 20 Reference Guidelines*: Normal: ............. < 150 mg/dL Borderline High: .... 150-199 mg/dL High: ............... 200-499 mg/dL Very High: .......... > 500 mg/dL * Source: National Cholesterol Education Program (NCEP) 21 Reference Guidelines*: Low HDL: ..... < 40 mg/dL Normal: ..... 40-60 mg/dL Desirable: ... > 60 mg/dL *The National Cholesterol Education Program(NCEP) 22 Reference Guidelines*: Optimal:........... <100 mg/dL Near Optimal....... 100-129 mg/dL Borderline High.... 130-159 mg/dL High............... 160-189 mg/dL Very High.......... >=190 mg/dL * Source: National Cholesterol Education Program (NCEP) 23 Note: Persistent reduction for 3 months or more in an eGFR <60 mL/min/1.73 m2 defines CKD. Patients with eGFR values >/=60 mL/min/1.73 m2 may also have CKD if evidence of persistent proteinuria is present. The original MDRD equation for estimated GFR is not valid for patients less than 18 years of age. Additional information may be found at www.kdoqi.org. 24 R31.9 25 THIS ASSAY IS NOT INTENDED A CANCER SCREENING TEST The concentration of PSA in a given specimen, determined with assays from different manufacturers, can vary due to differences in assay methods and reagent specificity. Values obtained from different assay methods cannot be used interchangeably. Method: [employer] [place] Chemiluminescent immunoassay. 26 R19.4,R14.0 27 Method: Adonis Ortez 28 Performed at: [address] [id number] Audiology Assistant: Clementine Ann MD, Phone: [phone] 29 Negative 0 - 19 Weak Positive 20 - 30 Moderate to Strong Positive >30 30 Negative 0 - 19 Weak Positive 20 - 30 Moderate to Strong Positive >30 31 Negative 0 - 3 Weak Positive 4 - 10 Positive >10 Tissue Transglutaminase (tTG) has been identified as the endomysial antigen. Studies have demonstr- ated that endomysial IgA antibodies have over 99% specificity for gluten sensitive enteropathy. 32 Negative 0 - 5 Weak Positive 6 - 9 Positive >9 Performed at: [address] [id number] Audiology Assistant: Clementine Ann MD, Phone: [phone] 33 Concentration Interpretation Follow-Up <16 - 50 ug/g Normal None >50 -120 ug/g Borderline Re-evaluate in 4-6 weeks >120 ug/g Abnormal Repeat as clinically indicated Performed at: [address] [id number] Audiology Assistant: Clementine Ann MD, Phone: [phone] Performed at: [address] [id number] Audiology Assistant: Jareth Mosquera MD, Phone: [phone] 34 NO ENTERIC PATHOGENS ISOLATED 35 ................................................... 36 INCLUDES TESTING FOR SALMONELLA, SHIGELLA, AEROMONAS, 37 PLESIOMONAS, CAMPYLOBACTER, AND E. COLI 0157:H7 38 ................................................... 39 YERSINIA AND VIBRIO ARE NOT ROUTINELY SCREENED FOR AND 40 SHOULD BE REQUESTED SEPARATELY NO YERSINIA ISOLATED 41 SHIGA TOXIN 1 NOT DETECTED 42 SHIGA TOXIN 2 NOT DETECTED Method: ImmunoCard STAT/EHEC Rapid Immunochromatographic Assay 43 NEGATIVE FOR CRYPTOSPORIDIUM SPECIFIC ANTIGEN 44 NEGATIVE FOR GIARDIA SPECIFIC ANTIGEN. The specimen will be held for 5 days. Additional testing may be performed upon request if the antigen tests are negative, and the patient is still symptomatic or has traveled to an endemic region. Method: Alere Quik Chek Rapid Membrane Enzyme Immunoassay 45 Normal (<60 Droplets/HPF) 46 Normal (<100 Droplets/HPF) 47 C-DIFF TOXIN B: NEGATIVE 027 NAP1 B1: NEGATIVE NOTE: IF REFLEX CULTURE FOR KLEBSIELLA OXYTOCA IS CLINICALLY INDICATED, PLEASE CONTACT THE [facility] ([phone]) WITHIN 3 DAYS OF THIS REPORT Testing Performed by: [place] [address] 48 INFCE Result Units: ug Elast./g Severe Pancreatic Insufficiency: <100 Moderate Pancreatic Insufficiency: 100 - 200 Normal: >200 Performed at: - [facility] [id number] Audiology Assistant: Jareth Mosquera MD, Phone: [phone] 49 DROP OFF SPEC COLLECTED BY NURSE 50 Instrument flagged sample for slide review. Less than 10% Bands seen, no other immature WBC's seen. RBC morphology essentially normal. Platelet estimate=Normal 51 Thyroglobulin Antibody measured by Sanna Girard Methodology 52 Performed at: - [facility] [address] [id number] Audiology Assistant: Clementine Ann MD, Phone: [phone] 53 BACK PAIN 54 URINE, CLEAN CATCH 55 DIFFICULTY URINATING 56 URINE, CLEAN CATCH 57 J02.8 58 BETA STREPTOCOCCUS GROUP A 59 PENICILLIN OR AMPICILLIN. 60 ERYTHROMYCIN MAY BE USED IN PENICILLIN ALLERGIC INDIVIDUALS Procedures Date CPT Code Description Status Comment 02/19/2018 38850 Eye Exam Est Patient Completed Comprehensive 02/12/2018 20990 Cognitive Test By Healthcare Completed Professional 02/04/2018 13805 EGD With Biopsy Completed 08/09/2017 75523 Measurement Post Voiding Completed Residual Urine By Ultrasound,Non-Imaging 06/19/2017 01139 Cystoscopy Completed 06/19/2017 62492 Measurement Post Voiding Completed Residual Urine By Ultrasound,Non-Imaging 06/19/2017 73268 complex uroflowmetry electronic Completed 06/05/2017 05365 complex uroflowmetry electronic Completed 06/05/2017 48053 Measurement Post Voiding Completed Residual Urine By Ultrasound,Non-Imaging 04/17/2017 03652 Brief Emotional/Behav Completed Assessment W/ Scoring Doc Per Standard Inst 01/05/2017 16209 Breath Hydrogen Test Completed 12/05/2016 25 Disability Form Completed 07/18/2016 94530 Hemorrhoidectomy Internal Completed Ligation Other Than Rubber Band Multipl 07/18/2016 16203 Colonoscopy Completed 07/18/2016 Colonoscopy Completed Document: 07/18/16 - Operative Report 07/04/2016 99564 EGD With Biopsy Completed 05/29/2006 Colonoscopy Completed Encounters Type Date Location Provider CPT E/M Dx Office Visit 02/12/2018 3:15p [place] [address] R41.840 R26.0 Office Visit 01/22/2018 3:00[place] [address] R10.13 R14.0 Office Visit 01/04/2018 8:30a Family Medicine Johanna Lopez, [employer]HOU[employer] LAB[employer]ER 56439 R05 R06.02 Office Visit 12/27/2017 4:30p Family Medicine Yaquelin eHlton PNP-BC, 40164 G62.9 [employer]HOU[employer] LAB[employer]ER, Ibclc M62.830 Office Visit 12/05/2017 11:45a Family Medicine Yaquelin Helton PNP-BC, 33039 F41.9 POWERHOUSE LAB[employer]ER, Ibclc M54.5 Z13.1 Z13.220 Z13.0 Office Visit 10/15/2017 2:00p Family Medicine Yaquelin Helton PNP-BC, 79867 A08.4 POWERHOUSE LAB[employer]ER, Ibclc Office Visit 09/27/2017 11:00a Family Medicine Family Nurse 84419 R03.0 Office Visit 09/11/2017 2:00p Family Medicine Yaquelin Helton PNP-BC, 76857 M54.5 POWERHOUSE LAB[employer]ER, Ibclc F41.9 R03.0 Office Visit 08/28/2017 1:30p Family Medicine Yaquelin Helton PNP-BC, 02495 M54.5 POWERHOUSE LAB[employer]ER, Ibclc Office Visit 08/09/2017 11:45a Urology Clarke Zhang M.D. 83522 R35.1 N40.1 Office Visit 06/20/2017 11:00a Family Medicine Yqauelin Helton PNP-BC, 15369 G62.9 [employer]HOUSE LAB[employer]ER, Ibclc M54.5 Office Visit 06/19/2017 11:15a Urology Clarke Zhang M.D. 67701 R35.1 N40.1 Office Visit 06/05/2017 2:00p Urology Clarke Zhang M.D. 92262 Z12.5 N40.1 R33.9 Office Visit 05/23/2017 11:45a Family Medicine Yaquelin Helton PNP-BC, 48040 M25.551 POWERHOUSE LAB[employer]ER, Ibclc F41.9 M54.5 G47.00 R39.12 I83.93 Office Visit 04/30/2017 1:00p Family Medicine Clkyleigh Cristelalanachon, POWERHOUSE LABORER 00493 I83.93 Office Visit 04/17/2017 3:30p Family Medicine Yaquelin Helton PNP-BC, 48964 F41.9 POWERHOUSE LAB[employer]ER, Ibclc Office Visit 02/28/2017 10:15a Family Medicine Yaquelin Helton PNP-BC, 52823 M54.5 POWERHOUSE LAB[employer]ER, Ibclc M25.512 Office Visit 12/20/2016 3:[place] [address] K22.70 R14.0 R19.4 R10.9 K59.00 Office Visit 11/27/2016 1:45p Family Medicine Deepthi Peñachristianoalanachon, POWERHOUSE LABORER 18080 M54.5 Office Visit 11/21/2016 10:00a Family Medicine Yaquelin Helton PNP-BC, 71373 M54.5 POWERHOUSE LAB[employer]ER, Ibclc M62.830 Office Visit 11/16/2016 1:15p Family Medicine Casey Cristelalanachon, [employer]HOUSE LABORER 30879 M54.5 G47.09 R53.83 Office Visit 10/11/2016 2:30p Family Medicine Yaquelin Helton PNP-BC, 41978 M62.830 POWERHOUSE LAB[employer]ER, Ibclc N32.9 F31.89 Office Visit 09/07/2016 9:30a Family Medicine Yaquelin Helton PNP-BC, 93283 M62.830 POWERHOUSE LAB[employer]ER, Ibclc Office Visit 08/10/2016 2:45p Surgical Office Efraín Jaquez 36953 K64.5 Valentin Yusuf Z12.11 K62.3 Office Visit 07/31/2016 10:30a Surgical Office Jace Wallace MD,[facility] [address]7968 K64.5 Office Visit 07/21/2016 9:15[place] [address] K22.70 K29.70 K59.04 Office Visit 07/06/2016 1:30p Surgical Office DaylincarolinaEfraín becerra, 78501 K62.3 M.D. Office Visit 06/26/2016 10:15a Family Medicine Yaquelin Helton, PNP-BC, 02968 J02.8 POWERHOUSE LAB[employer]ER, Ibclc M54.5 Office Visit 06/16/2016 11:15[place] [address] K59.04 K62.3 Office Visit 06/14/2016 1:00p Family Medicine Yaquelin Helton, PNP-BC, 94743 M54.5 POWERHOUSE LAB[employer]ER, Ibclc K59.00 G24.01 Office Visit 05/31/2016 2:00p Family Medicine Yaquelin Helton, PNP-BC, 08638 K59.00 POWERHOUSE LAB[employer]ER, Ibclc N81.6 F31.9 G24.01 Plan of Care Future Appointment(s):02/21/2018 2:00 pm - Braeden Mccurdy MD at [facility]/08 /2019 9:45 am - Gunner Still MD at GI02/19/2018 - Gunner Briceno MDH04.123 Dry eye syndrome of bilateral lacrimal glandsComments:- warm compresses: can use either morning or evening- artificial tears both eyes: can use 3-4 times daily- consider ointment at night- can consider punctal occlusion or restasis - may also be related to the transition from the bifocal to a progressive lensFollow up:please call with ? or [id number] HeadacheComments:- no sign of optic neuropathy or cranial neuropathy- no sign of intraocular inflammation or infection- no sign of angle closure glaucoma- provided reassurance
--- OUTSIDE RECORDS SUMMARY | 2018-02-21 20:05 | XMS REPORT ---
:1970 External Reference #:[id number] Author Organization [facility] Address [address] [place] [address] Phone [phone] Care Team Providers Name Role Phone Yaquelin Helton, SHAINA, FOOD BROKER, Ibclc Care Team Information Implementation Engineer Unavailable Yaquelin Helton, SHAINA, FOOD BROKER, Ibclc Primary Care Physician Unavailable Payers Type Date Identification Numbers Payment Provider Subscriber Commercial Policy Number: [id number] [employer] Danilo Nicole PayID: [id number] [address] [place] [address] Medigap Part B Expires: 2018 Policy Number: Brayan Nicole [id number] PayID: [id number] [address] [address] [place] [address] Problems Date Description Provider Status Onset: 06/16/2016 [...] Form Strength Qnty SIG Indications Ordering Provider Linzess 01/22/ Active Capsules 145mcg 90caps 1 cap by R14.0 Cheko 2017 mouth every MD Gunner night, hold for unformed bm Ventolin HFA 01/04/ Active Aerosol 108(90Base 18gm Inhale 2 R05 John2017 ) mcg/Act puffs by RENE Spencer mouth every 3 hours as needed for shortness of breath Benzonatate 01/04/ Active Capsules 100mg 30caps take 1 R05 John2017 capsule by RENE Spencer mouth every 8 hours for coughing as needed Skelaxin 12/27/ Active Tablets 800mg 60tabs 1 by mouth Day Helton three times Yaquelin a day for PNP-BC, muscle FOOD BROKER, Ibclc spasms.. Paroxetine HCL 06/29/ Active Tablets 10mg 90tabs take one Danie 2017 tablet by Yaquelin mouth every PNP-BC, day with FOOD BROKER, Ibclc 40mg tablet Paroxetine HCL 05/23/ Active Tablets 40mg 90tabs 1 by mouth F41.9 Day Helton every day Yaquelin, with 10mg PNP-BC, tablet FOOD BROKER, Ibclc Clonazepam 05/23/ Active Tablets 0.5mg 60tabs take 1 to 2 G47.00 Day Helton at bedtime Yaquelin, reference PNP-BC, #: [id number] FOOD BROKER, Ibclc F41.9 Jobst Active 04/30/2017 Active Misc 2Pair 2 pairs for I83.93 Clune, 15-20MMHG/Knee moderate (RT Jenniferleigh, High/Closed leg) and FOOD BROKER Toe/Medium severe (lt leg) varicosities Esomeprazole 12/20/2016 Active Capsules 2 90caps 1 cap by K22.70 Victor Manuel Flaherty MD Magnesium DR 0 mouth bid - m increased by g ER Benadryl Allergy Active Capsules 2 30caps using otc Yaquelin Helton, 5 prn PNP-BC, FOOD BROKER, m Ibclc g Oxycodone-Acetam Active Tablets 5 1 tablet Unknown inophen - every 6 hours 3 as needed 2 5 m g Linzess 09/27/2017 Hx Capsules 2 90caps 1 [...] Helton , - . mouth twice a PNP-RENE HEAD, 09/11/2017 5 day as for 2 Ibclc m weeks and g then as needed Multivitamin 04/17/2017 Hx Tablets 30tabs 1 by mouth Yaquelin Helton, Adult - every day PNPZACKARY CAALP, 09/11/2017 Ibclc Vitamin C 04/17/2017 Hx Chewtabs 5 1 by mouth Yaquelin Helton, - 0 every day PNP-SONIDO FOOD BROKER, 09/11/2017 0 Ibclc m g Paroxetine HCL 04/17/2017 Hx Tablets 2 30tabs 1 by mouth F41.9 Yaquelin Helton, - 0 every day PNP-ZACKARY HEADP, 05/23/2017 m Ibclc g Fexofenadine HCL 01/08/2017 Hx Tablets 1 30tabs 1 by mouth at Yaquelin Helton, - 8 night PNP-BC, FOOD BROKER, 09/11/2017 0 Ibclc m g Fluticasone 01/08/2017 Hx Suspensio 5 16gm 2 sprays each Yaquelin Helton , Propionate - n 0 nare once a PNP-BC, FOOD BROKER, 09/11/2017 m day Ibclc c g / A c t Ibuprofen 01/02/2017 Hx Tablets 6 240tab 1 tab three Yaquelin Hetlon, - 0 s times a day PNP-BC, FOOD BROKER, 02/28/2017 0 as needed Ibclc m g Vicodin ES 11/16/2016 Hx Tablets 7 40tabs one tablet M54.5 Clune, - . every 6 hours Deepthiferchalo, 01/02/2017 5 as needed for FOOD BROKER - moderate to 3 severe pain 0 Reference #: [id number] m g Ziprasidone HCL 10/11/2016 Hx Capsules 2 30caps 1 tab po qhs Yaquelin Helton, 0 PNP-BC, FOOD BROKER, m Ibclc g Metaxalone 10/11/2016 Hx Tablets 8 60tabs 1 tab by M62.830 Yaquelin Helton, - 0 mouth three PNP-BC, FOOD BROKER, 02/28/2017 0 times a day Ibclc m as needed for g pain Cyclobenzaprine 09/07/2016 Hx Tablets 1 45tabs 1 by mouth M62.830 Yaquelin Helton, HCL - 0 three times a PNP-BC, FOOD BROKER, 10/11/2016 m day as needed Ibclc g [...] Yaquelin Helton, 5 by mouth on PNP-BC, FOOD BROKER, 0 day 1 then 1 Ibclc m tab by mouth g every days 2-5 Vitamin E-400 06/26/2016 Hx Capsules 4 3 by mouth Yaquelin Helton, - 0 every day PNP-BC, FOOD BROKER, 10/11/2016 0 Ibclc U n i t [...] Helton, - m day as needed PNP-BC, FOOD BROKER, 01/02/2017 g Reference #: Ibclc [id number] Vitamin D3 High Hx Capsules 1 1 [...] Yaquelin Helton inophen - - two tablets PNP-BC, FOOD BROKER, 09/11/2017 3 by mouth Ibclc 2 every 6 hours 5 as needed for m pain g reference #: [id number] Tamsulosin HCL Hx Capsules 0 90caps 1 tab daily Vicente, - . Valentin Mir 06/20/2017 4 m g Melatonin Hx Capsules 1 1 by mouth Unknown - 0 every at 02/12/2018 m bedtime g Cyclobenzaprine Hx Tablets 1 90tabs 1 tab by Yaquelin Helton, HCL - 0 mouth three PNP-BC, FOOD BROKER, 01/04/2018 m times a day Ibclc g [...] CPT Code Status Date Vaccine Lot # [id number] Given 01/07/2018 Influenza Virus Vaccine, Quadrivalent, 36 Mos+, [id number] Given 01/25/2017 Influenza Virus Vaccine Quadrivalent Iiv4 Split [id number] Preser Free Id Vital Signs Date Vital [...] kg/m2 BSA (Body Surface Area) 2.22 m2 [place] body weight in kilograms 75 01/04/2018 BP Systolic Sitting Left Arm 112 mmHg BP Diastolic Sitting Left Arm 72 mmHg Heart Rate 78 /min Respiratory Rate 20 /min Height 70 inches 5'10" Weight 231.00 lb BMI (Body Mass Index) 33.1 kg/m2 BSA (Body Surface Area) 2.22 m2 [place] body weight in kilograms 75 O2 % BldC Oximetry 95 % 12/27/2017 BP Systolic Sitting Left Arm 142 mmHg BP Diastolic Sitting Left Arm 92 mmHg Heart Rate 88 /min Height 70 inches 5'10" Weight 232.38 lb BMI (Body Mass Index) 33.3 kg/m2 BSA (Body Surface Area) 2.22 m2 [place] body weight in kilograms 75 O2 % [...] kg/m2 BSA (Body Surface Area) 2.18 m2 [place] body weight in kilograms 75 08/28/2017 BP Systolic 122 mmHg BP Diastolic 78 mmHg Heart Rate 72 /min Height 70 inches 5'10" Weight 222.00 lb BMI (Body Mass Index) 31.9 kg/m2 BSA (Body Surface Area) 2.18 m2 [place] body weight in kilograms 75 O2 % BldC Oximetry 97 % 08/09/2017 BP Systolic 117 mmHg BP Diastolic 82 mmHg Body Temperature 97.3 F Heart Rate 72 /min Respiratory Rate 18 /min Height 70 inches 5'10" Weight 216.00 lb BMI (Body Mass Index) 31.0 kg/m2 BSA (Body Surface Area) 2.16 m2 [place] body weight in kilograms 75 O2 % BldC Oximetry 97 % Pain Level 0 06/20/2017 BP Systolic 112 mmHg BP Diastolic 72 mmHg Body Temperature 97.0 F Heart Rate 84 /min Respiratory Rate 17 /min Height 70 inches 5'10" Weight 212.00 lb BMI (Body Mass Index) 30.4 kg/m2 BSA (Body Surface Area) 2.14 m2 [place] body weight in kilograms 75 O2 % BldC Oximetry 98 % 06/19/2017 BP Systolic 129 mmHg BP Diastolic 91 mmHg Body Temperature 97.7 F Heart Rate 73 /min Respiratory Rate 17 /min Height 70 inches 5'10" Weight 212.12 lb BMI (Body Mass Index) 30.4 kg/m2 BSA (Body Surface Area) 2.14 m2 [place] body weight in kilograms 75 O2 % BldC Oximetry 99 % Pain Level 3 Low back 06/05/2017 BP Systolic 119 mmHg BP Diastolic 69 mmHg Body Temperature 98.1 F Heart Rate 72 /min Respiratory Rate 14 /min Height 70 inches 5'10" Weight 209.12 lb BMI (Body Mass Index) 30.0 kg/m2 BSA (Body Surface Area) 2.13 m2 [place] body weight in kilograms 75 Pain Level 3 chronic back pain per pt 05/23/2017 BP Systolic 122 mmHg BP Diastolic 80 mmHg Body Temperature 97.9 F Heart Rate 76 /min Respiratory Rate 17 /min Height 70 inches 5'10" Weight 206.50 lb BMI (Body Mass Index) 29.6 kg/m2 BSA (Body Surface Area) 2.12 m2 [place] body weight in kilograms 75 O2 % BldC Oximetry 97 % 04/30/2017 BP Systolic Sitting Left Arm 118 mmHg BP Diastolic Sitting Left Arm 72 mmHg Heart Rate 80 /min Respiratory Rate 18 /min Height 70 inches 5'10" Weight 205.25 lb BMI (Body Mass Index) 29.4 kg/m2 BSA (Body Surface Area) 2.11 m2 [place] body weight in kilograms 75 04/17/2017 BP Systolic 112 mmHg BP Diastolic 76 mmHg Body Temperature 96.7 F Heart Rate 76 /min Height 70 inches 5'10" Weight 205.00 lb BMI (Body Mass Index) 29.4 kg/m2 BSA (Body Surface Area) 2.11 m2 [place] body weight in kilograms 75 O2 % BldC Oximetry 97 % 02/28/2017 BP Systolic 112 mmHg BP Diastolic 64 mmHg Heart Rate 78 /min Height 70 inches 5'10" Weight 192.00 lb BMI (Body Mass Index) 27.5 kg/m2 BSA (Body Surface Area) 2.05 m2 [place] body weight in kilograms 75 12/20/2016 BP Systolic Sitting Left Arm 116 mmHg BP Diastolic Sitting Left Arm 70 mmHg Heart Rate 73 /min Respiratory Rate 16 /min Height 70 inches 5'10" Weight 182.00 lb BMI (Body Mass Index) 26.1 kg/m2 BSA (Body Surface Area) 2.01 m2 [place] body weight in kilograms 75 11/27/2016 BP Systolic 138 mmHg BP Diastolic 88 mmHg Height 70 inches 5'10" Weight 185.00 lb BMI (Body Mass Index) 26.5 kg/m2 BSA (Body Surface Area) 2.02 m2 [place] body weight in kilograms 75 11/21/2016 BP Systolic 108 mmHg BP Diastolic 62 mmHg Height 70 inches 5'10" [place] body weight in kilograms 75 11/16/2016 BP Systolic 116 mmHg BP Diastolic 78 mmHg Heart Rate 74 /min Height 70 inches 5'10" Weight 181.00 lb BMI (Body Mass Index) 26.0 kg/m2 BSA (Body Surface Area) 2.00 m2 [place] body weight in kilograms 75 10/11/2016 BP Systolic 154 mmHg BP Diastolic 76 mmHg Heart Rate 79 /min Height 70 inches 5'10" Weight 179.00 lb BMI (Body Mass Index) 25.7 kg/m2 BSA (Body Surface Area) 1.99 m2 [place] body weight in kilograms 75 09/07/2016 BP Systolic 132 mmHg BP Diastolic 76 mmHg Body Temperature 98.0 F Heart Rate 60 /min Height 70 inches 5'10" Weight 177.00 lb BMI (Body Mass Index) 25.4 kg/m2 BSA (Body Surface Area) 1.98 m2 [place] body weight in kilograms 75 O2 % [...] kg/m2 BSA (Body Surface Area) 1.98 m2 [place] body weight in kilograms 75 06/16/2016 BP [...] kg/m2 BSA (Body Surface Area) 1.99 m2 [place] body weight in kilograms 75 Results Test Date Test Result H/L Range Note Laboratory test finding 01/21/2018 D-Dimer, Quantitative < 0.27 ug/mL 1 , 2 Differential-WBC Confirm 01/21/2018 Total Cells Counted 100 #CELLS 1 Band% 1 % 0-8 1 Neutrophils% 51 % 33-73 1 Lymph% 32 % 20-42 1 Atypical Lymph% 2 % 0-7 1 Monocyte% 8 % 0-10 1 Eosinophil% 6 % High 0-5 1 Platelet Estimate NORMAL 1 Anisocytosis 0-1+ 1 Toxic Granulation 0-1+ 1 Laboratory test finding 01/21/2018 Slide Review DIFF ORDERED 1 CBC W/Automated Diff 01/21/2018 White Blood Count 7.0 K/uL 3.4-10.5 1 Red Blood Count 4.49 M/uL 4.20-5.80 1 Hemoglobin 14.3 gm/dL 12.8-17.0 1 Hematocrit 40.1 % 38.0-48.0 1 Mean Cell Volume 89.3 fl 80.0-96.0 1 Mean Corpuscular HGB 31.8 pg 27.0-33.0 1 Mean Corpuscular HGB Conc 35.7 g/dL 31.7-36.0 1 Platelet Count 234 K/uL 155-360 1 Red Cell Distri Width SD 42.3 fl 36-51 1 Red Cell Distri Width %CV 13.2 % 11.6-15.8 1 Mean Platelet Volume 9.6 fL 6.6-10.6 1 Neut% 52.1 % 33.0-73.0 1 Lymph % 31.1 % 20.0-42.0 1 [place] % 10.6 % High 0.0-10.0 1 Eo% 5.6 % 0.0-6.6 1 Bas% 0.6 % 0.0-1.1 1 Neut# 3.65 K/uL 1.8-7.0 1 Lymph # 2.18 K/uL 1.0-4.0 1 [place] # 0.74 K/uL 0.0-0.8 1 Eos # 0.39 K/uL 0.0-0.5 1 Baso # 0.04 K/uL 0.0-0.1 1 Laboratory test finding 01/21/2018 Lipase 117 U/L 56-289 1 Troponin-I < 0.015 ng/mL 1, 3 Comprehensive Metabolic Panel 01/21/2018 Glucose 91 mg/dL 74-106 1 BUN 12 mg/dL 7-18 1 Creatinine 0.9 mg/dL 0.6-1.3 1 Glom Filtration Rate, Estimate >60 mL/min >60 1 If >60 mL/min >60 1, 4 BUN/Creat 13.3 ratio 1 Sodium 143 mmol/L 136-145 1 Potassium 4.0 mmol/L 3.5-5.1 1 Chloride 107 mmol/L 98-107 1 Carbon Dioxide 30 mmol/L 21-32 1 Anion Gap 6 mEq/L Low 8-16 1 Calcium 8.2 mg/dL Low 8.5-10.1 1 Total Protein 7.2 g/dL 6.4-8.2 1 Albumin 3.4 g/dL 3.4-5.0 1 Globulin 3.8 g/dL 1.9-4.3 1 Alb/Glob 0.9 ratio 1 Bilirubin,Total 0.4 mg/dL 0.2-1.0 1 Sgot/Ast 27 U/L 15-37 1 SGPT/Alt 38 U/L 12-78 1 Alkaline Phosphatase 83 U/L 45-117 1 Glycohemoglobin A1c 12/05/2017 Glycohemoglobin (A1c) 5.2 % 4.2-6.3 5, 6 eAG 103 mg/dL 5 LDL Cholesterol Profile 12/05/2017 Cholesterol 159 mg/dL <200 5, 7 Triglycerides 241 mg/dL High <150 5, 8 HDL Cholesterol 34 mg/dL Low >40 5, 9 LDL-Cholesterol 77 mg/dL < 100 5, 10 CBC W/Automated Diff 12/05/2017 White Blood Count 7.2 K/uL 3.4-10.5 5 Red Blood Count 4.68 M/uL 4.20-5.80 5 Hemoglobin 15.1 gm/dL 12.8-17.0 5 Hematocrit 43.2 % 38.0-48.0 5 Mean Cell Volume 92.3 fl 80.0-96.0 5 Mean Corpuscular HGB 32.3 pg 27.0-33.0 5 Mean Corpuscular HGB Conc 35.0 g/dL 31.7-36.0 5 Platelet Count 220 K/uL 155-360 5 Red Cell Distri Width SD 43.9 fl 36-51 5 Red Cell Distri Width %CV 13.3 % 11.6-15.8 5 Mean Platelet Volume 11.0 fL High 6.6-10.6 5 Neut% 57.7 % 33.0-73.0 5 Lymph % 27.0 % 20.0-42.0 5 [place] % 5.5 % 0.0-10.0 5 Eo% 9.2 % High 0.0-6.6 5 Bas% 0.6 % 0.0-1.1 5 Neut# 4.13 K/uL 1.8-7.0 5 Lymph # 1.93 K/uL 1.0-4.0 5 [place] # 0.39 K/uL 0.0-0.8 5 Eos # 0.66 K/uL High 0.0-0.5 5 Baso # 0.04 K/uL 0.0-0.1 5 Comprehensive Metabolic Panel 12/05/2017 Glucose 133 mg/dL High 74-106 5 BUN 12 mg/dL 7-18 5 Creatinine 1.0 mg/dL 0.6-1.3 5 Glom Filtration Rate, Estimate >60 mL/min >60 5 If >60 mL/min >60 5, 11 BUN/Creat 12.0 ratio 5 Sodium 141 mmol/L 136-145 5 Potassium 4.0 mmol/L 3.5-5.1 5 Chloride 107 mmol/L 98-107 5 Carbon Dioxide 24 mmol/L 21-32 5 Anion Gap 10 mEq/L 8-16 5 Calcium 8.9 mg/dL 8.5-10.1 5 Total Protein 7.5 g/dL 6.4-8.2 5 Albumin 3.8 g/dL 3.4-5.0 5 Globulin 3.7 g/dL 1.9-4.3 5 Alb/Glob 1.0 ratio 5 Bilirubin,Total 0.4 mg/dL 0.2-1.0 5 Sgot/Ast 21 U/L 15-37 5 SGPT/Alt 34 U/L 12-78 5 Alkaline Phosphatase 93 U/L 45-117 5 Laboratory test finding 06/05/2017 Prostate Specific 0.76 ng/mL < 4.0 12 , 13 Antigen Ua RFX Micro & Culture II 06/05/2017 Urine Color YELLOW Yellow 12 Urine Clarity CLEAR Clear 12 Urine Glucose - Dipstick NEGATIVE mg/dL Negative 12 Urine Bilirubin - Dipstick NEGATIVE Negative 12 Urine Ketone NEGATIVE mg/dL Negative 12 Urine Specific [place] <=1.005 Low 1.010-1.030 12 Urine Blood NEGATIVE Negative 12 Urine PH 6.5 6.5-7.5 12 Urine Protein - Dipstick NEGATIVE mg/dL Negative 12 Urine Urobilinogen - Dipstick 0.2 E.U./dL 0.2-1.0 12 Urine Nitrite - Dipstick NEGATIVE Negative 12 Urine Leuk Esterase NEGATIVE Negative 12 Laboratory test finding 12/21/2016 Sedimentation Rate 2 mm/hr 0-15 14, 15 Celiac Disease Comp AB 12/21/2016 Immunoglobulin A 265 mg/dL 90-386 14, 16 Profile Antigliadin Abs, IgG 2 units 0-19 14, 17 Antigliadin Abs, IgA 11 units 0-19 14, 18 Endomysial IgA Antibody Negative Negative 14 t-Transglutaminase IgA <2 U/mL 0-3 14, 19 t-Transglutaminase IgG <2 U/mL 0-5 14, 20 Laboratory test 12/21/2016 Calprotectin, Fecal < 16 ug/g 0-120 14, 21 finding Stool Culture 12/21/2016 Stool Culture NO ENTERIC PATHO 14, 22 <SEE NOTE> . ................ <SEE NOTE> 14, 23 Note: INCLUDES TESTING <SEE NOTE> 14, 24 . PLESIOMONAS, CAM <SEE NOTE> 14, 25 . ................ <SEE NOTE> 14, 26 . YERSINIA AND VIB <SEE NOTE> 14, 27 . SHOULD BE REQUES <SEE NOTE> 14, 28 Shiga Toxin 1 Antigen SHIGA TOXIN 1 NO <SEE NOTE> 14, 29 Shiga Toxin 2 Antigen SHIGA TOXIN 2 NO <SEE NOTE> 14, 30 Ova & Parasite 12/21/2016 Cryptosporidium Specific NEGATIVE FOR CRY 14 , 31 Antigen Screen Ag <SEE NOTE> Giardia Specific Antigen NEGATIVE FOR MAYRA <SEE NOTE> 14, 32 Fecal Fat, Qualitative 12/21/2016 Fats, Neutral Normal . 14, 33 Fats, Total Normal . 14, 34 Laboratory test 12/21/2016 C. Difficile Toxin B C-DIFF TOXIN B: 14, 35 finding By PCR <SEE NOTE> Vitamin B12 And 12/21/2016 Vitamin B12 335 pg/mL 193-986 14 Folate Folic Acid 18.5 ng/mL High 3.1-17.5 14 Laboratory test 12/21/2016 Pancreatic Elastase > 500.0 ug/g >200 14, 36 finding (Pe-1) Laboratory test 11/16/2016 Slide Review (SEE NOTE) 37, 38 finding CBS W/Automated Diff 11/16/2016 White Blood Count 5.2 K/uL 3.4-10.5 37 Red Blood Count 4.91 M/uL 4.20-5.80 37 Hemoglobin 15.8 gm/dL 12.8-17.0 37 Hematocrit 43.0 % 38.0-48.0 37 Mean Cell Volume 87.6 fl 80.0-96.0 37 Mean Corpuscular HGB 32.2 pg 27.0-33.0 37 Mean Corpuscular HGB Conc 36.7 g/dL High 31.7-36.0 37 Platelet Count 219 K/uL 150-400 37 Red Cell Distri Width SD 41.8 fl 36-51 37 Red Cell Distri Width %CV 13.4 % 11.6-15.8 37 Mean Platelet Volume 10.4 fL 6.6-10.6 37 Neut% 44.0 % 33.0-73.0 37 Lymph % 34.0 % 20.0-42.0 37 [place] % 7.2 % 0.0-10.0 37 Eo% 13.6 % High 0.0-6.6 37 Bas% 1.2 % High 0.0-1.1 37 Neut# 2.27 K/uL 1.8-7.0 37 Lymph # 1.75 K/uL 1.0-4.0 37 [place] # 0.37 K/uL 0.0-0.8 37 Eos # 0.70 K/uL High 0.0-0.5 37 Baso # 0.06 K/uL 0.0-0.1 37 Laboratory test 11/16/2016 Thyroid Stim Hormone 3.03 uIU/mL 0.30-4.20 37 finding Thyroid Antibodies 11/16/2016 Thyroglobulin 2.9 IU/mL High 0.0-0.9 37, 39 Antibody Thyroid Peroxidase Antibodies 16 IU/mL 0-34 37, 40 Ua RFX Micro & Culture II 11/15/2016 Urine Color YELLOW Yellow 41 Urine Clarity CLEAR Clear 41 Urine Glucose - Dipstick NEGATIVE mg/dL Negative 41 Urine Bilirubin - Dipstick NEGATIVE Negative 41 Urine Ketone NEGATIVE mg/dL Negative 41 Urine Specific [place] 1.010 1.010-1.030 41 Urine Blood NEGATIVE Negative 41 Urine PH 5.5 Low 6.5-7.5 41 Urine Protein - Dipstick NEGATIVE mg/dL Negative 41 Urine Urobilinogen - Dipstick 0.2 E.U./dL 0.2-1.0 41 Urine Nitrite - Dipstick NEGATIVE Negative 41 Urine Leuk Esterase NEGATIVE Negative 41 Source: URINE, CLEAN CAT <SEE NOTE> 41, 42 Ua RFX Micro & Culture II 07/21/2016 Urine Color YELLOW Yellow 43 Urine Clarity CLEAR Clear 43 Urine Glucose - Dipstick NEGATIVE mg/dL Negative 43 Urine Bilirubin - Dipstick NEGATIVE Negative 43 Urine Ketone TRACE mg/dL High Negative 43 Urine Specific [place] 1.015 1.010-1.030 43 Urine Blood NEGATIVE Negative 43 Urine PH 6.5 6.5-7.5 43 Urine Protein - Dipstick NEGATIVE mg/dL Negative 43 Urine Urobilinogen - Dipstick 0.2 E.U./dL 0.2-1.0 43 Urine Nitrite - Dipstick NEGATIVE Negative 43 Urine Leuk Esterase NEGATIVE Negative 43 Source: URINE, CLEAN CAT <SEE NOTE> 43, 44 Throat Strep Screen 06/26/2016 Throat Strep Screen BETA STREPTOCOCC <SEE 45, 46 NOTE> Quantity MODERATE 45 Recommended Therapy: PENICILLIN OR AM <SEE NOTE> 45, 47 Alternative Therapy: ERYTHROMYCIN MAY <SEE NOTE> 45, 48 1 CHEST PAIN 2 <=0.49 ug/mL - Low likelihood of DIC, DVT or Pulmonary Embolism >0.49 ug/mL - Additional testing should be done to rule out DIC, DVT, or Pulmonary embolism as clinically indicated. ([facility] has established a 97.89% negative predictive value for thrombotic disease when a cutoff value of 0.5 ug/mL is used.) 3 0.0 - 0.045 ng/mL: Normal 0.046 - 0.5 ng/mL: Suggestive 0.6 - 1.5 ng/mL: Consistent 4 Note: Persistent reduction for 3 months or more in an eGFR <60 mL/min/1.73 m2 defines CKD. Patients with eGFR values >/=60 mL/min/1.73 m2 may also have CKD if evidence of persistent proteinuria is present. The original MDRD equation for estimated GFR is not valid for patients less than 18 years of age. Additional information may be found at www.kdoqi.org. 5 Z13.1, Z13.220, Z13.0 6 Elevated levels of HbA1c suggest the need for more aggressive treatment of glycemia. The [place] [employer] recommends that a primary goal of therapy should be a HbA1c of <7% and that physicians should re-evaluate the treatment regimen in patients with HbA1c values consistently >8%. 7 Reference Guidelines*: Desirable: ........... < 200 mg/dL Borderline High: ..... 200-239 mg/dL High: ................ >=240 mg/dL * The National Cholesterol Education Program (NCEP) 8 Reference Guidelines*: Normal: ............. < 150 mg/dL Borderline High: .... 150-199 mg/dL High: ............... 200-499 mg/dL Very High: .......... > 500 mg/dL * Source: National Cholesterol Education Program (NCEP) 9 Reference Guidelines*: Low HDL: ..... < 40 mg/dL Normal: ..... 40-60 mg/dL Desirable: ... > 60 mg/dL *The National Cholesterol Education Program(NCEP) 10 Reference Guidelines*: Optimal:........... <100 mg/dL Near Optimal....... 100-129 mg/dL Borderline High.... 130-159 mg/dL High............... 160-189 mg/dL Very High.......... >=190 mg/dL * Source: National Cholesterol Education Program (NCEP) 11 Note: Persistent reduction for 3 months or more in an eGFR <60 mL/min/1.73 m2 defines CKD. Patients with eGFR values >/=60 mL/min/1.73 m2 may also have CKD if evidence of persistent proteinuria is present. The original MDRD equation for estimated GFR is not valid for patients less than 18 years of age. Additional information may be found at www.kdoqi.org. 12 R31.9 13 THIS ASSAY IS NOT INTENDED A CANCER SCREENING TEST The concentration of PSA in a given specimen, determined with assays from different manufacturers, can vary due to differences in assay methods and reagent specificity. Values obtained from different assay methods cannot be used interchangeably. Method: [employer] [place] Chemiluminescent immunoassay. 14 R19.4,R14.0 15 Method: Sediplast Modified Westergren 16 Performed at: [facility] [employer] [id number] Harness Puller: Clementine Ann MD, Phone: [phone] 17 Negative 0 - 19 Weak Positive 20 - 30 Moderate to Strong Positive >30 18 Negative 0 - 19 Weak Positive 20 - 30 Moderate to Strong Positive >30 19 Negative 0 - 3 Weak Positive 4 - 10 Positive >10 Tissue Transglutaminase (tTG) has been identified as the endomysial antigen. Studies have demonstr- ated that endomysial IgA antibodies have over 99% specificity for gluten sensitive enteropathy. 20 Negative 0 - 5 Weak Positive 6 - 9 Positive >9 Performed at: [facility] [employer] [id number] Harness Puller: Clementine Ann MD, Phone: [phone] 21 Concentration Interpretation Follow-Up <16 - 50 ug/g Normal None >50 -120 ug/g Borderline Re-evaluate in 4-6 weeks >120 ug/g Abnormal Repeat as clinically indicated Performed at: [address] [id number] Harness Puller: Clementine Ann MD, Phone: [phone] Performed at: [address] [id number] Harness Puller: Jareth Mosquera MD, Phone: [phone] 22 NO ENTERIC PATHOGENS ISOLATED 23 ................................................... 24 INCLUDES TESTING FOR SALMONELLA, SHIGELLA, AEROMONAS, 25 PLESIOMONAS, CAMPYLOBACTER, AND E. COLI 0157:H7 26 ................................................... 27 YERSINIA AND VIBRIO ARE NOT ROUTINELY SCREENED FOR AND 28 SHOULD BE REQUESTED SEPARATELY NO YERSINIA ISOLATED 29 SHIGA TOXIN 1 NOT DETECTED 30 SHIGA TOXIN 2 NOT DETECTED Method: [employer] STAT/EHEC Rapid Immunochromatographic Assay 31 NEGATIVE FOR CRYPTOSPORIDIUM SPECIFIC ANTIGEN 32 NEGATIVE FOR GIARDIA SPECIFIC ANTIGEN. The specimen will be held for 5 days. Additional testing may be performed upon request if the antigen tests are negative, and the patient is still symptomatic or has traveled to an endemic region. Method: [employer] Chek Rapid Membrane Enzyme Immunoassay 33 Normal (<60 Droplets/HPF) 34 Normal (<100 Droplets/HPF) 35 C-DIFF TOXIN B: NEGATIVE 027 NAP1 B1: NEGATIVE NOTE: IF REFLEX CULTURE FOR KLEBSIELLA OXYTOCA IS CLINICALLY INDICATED, PLEASE CONTACT THE [facility] ([phone]) WITHIN 3 DAYS OF THIS REPORT Testing Performed by: [place] [address] 36 INFCE Result Units: ug Elast./g Severe Pancreatic Insufficiency: <100 Moderate Pancreatic Insufficiency: 100 - 200 Normal: >200 Performed at: [address] [id number] Harness Puller: Jareth Mosquera MD, Phone: [phone] 37 DROP OFF SPEC COLLECTED BY NURSE 38 Instrument flagged sample for slide review. Less than 10% Bands seen, no other immature WBC's seen. RBC morphology essentially normal. Platelet estimate=Normal 39 Thyroglobulin Antibody measured by [facility]anna [place] [employer] 40 Performed at: RN - [facility] [address] [id number] Harness Puller: Clementine Ann MD, Phone: [phone] 41 BACK PAIN 42 URINE, CLEAN CATCH 43 DIFFICULTY URINATING 44 URINE, CLEAN CATCH 45 J02.8 46 BETA STREPTOCOCCUS GROUP A 47 PENICILLIN OR AMPICILLIN. 48 ERYTHROMYCIN MAY BE USED IN PENICILLIN ALLERGIC INDIVIDUALS Procedures Date CPT Code Description Status Comment 02/04/2018 94893 EGD With Biopsy Completed 08/09/2017 51278 Measurement Post Voiding Completed Residual Urine By Ultrasound,Non-Imaging 06/19/2017 97106 Cystoscopy Completed 06/19/2017 10924 Measurement Post Voiding Completed Residual Urine By Ultrasound,Non-Imaging 06/19/2017 83363 complex uroflowmetry electronic Completed 06/05/2017 81408 Measurement Post Voiding Completed Residual Urine By Ultrasound,Non-Imaging 06/05/2017 90656 complex uroflowmetry electronic Completed 04/17/2017 41523 Brief Emotional/Behav Completed Assessment W/ Scoring Doc Per Standard Inst 01/05/2017 07287 Breath Hydrogen Test Completed 12/05/2016 25 Disability Form Completed 07/18/2016 49598 Hemorrhoidectomy Internal Completed Ligation Other Than Rubber Band Multipl 07/18/2016 46042 Colonoscopy Completed 07/18/2016 Colonoscopy Completed Document: 07/18/16 - Operative Report 07/04/2016 87388 EGD With Biopsy Completed 05/29/2006 Colonoscopy Completed Encounters Type Date Location Provider CPT E/M Dx Office Visit 01/22/2018 3:00[place] [address] R10.13 R14.0 Office Visit 01/04/2018 8:30a Family Medicine Johanna Lopez FNP 79235 R05 R06.02 Office Visit 12/27/2017 4:30p Family Medicine Yaquelin Helton PNP-BC, 96373 G62.9 FOOD BROKER, Ibclc M62.830 Office Visit 12/05/2017 11:45a Family Medicine Yaquelin Helton PNP-BC, 06354 F41.9 FOOD BROKER, Ibclc M54.5 Z13.1 Z13.220 Z13.0 Office Visit 10/15/2017 2:00p Family Medicine Yaquelin Helton PNP-BC, 65922 A08.4 FOOD BROKER, Ibclc Office Visit 09/27/2017 11:00a Family Medicine Family Nurse 87305 R03.0 Office Visit 09/11/2017 2:00p Family Medicine Yaquelin Helton PNP-BC, 86748 M54.5 FOOD BROKER, Ibclc F41.9 R03.0 Office Visit 08/28/2017 1:30p Family Medicine Yaquelin Helton PNP-BC, 24101 M54.5 FOOD BROKER, Ibclc Office Visit 08/09/2017 11:45a Urology Clarke Zhang M.D. 44644 R35.1 N40.1 Office Visit 06/20/2017 11:00a Family Medicine Yaquelin Helton PNP-BC, 75553 G62.9 FOOD BROKER, Ibclc M54.5 Office Visit 06/19/2017 11:15a Urology Clarke Zhang M.D. 56926 R35.1 N40.1 Office Visit 06/05/2017 2:00p Urology Clarke Zhang M.D. 16387 Z12.5 N40.1 R33.9 Office Visit 05/23/2017 11:45a Family Medicine Yaquelin Helton PNP-BC, 43708 M25.551 FOOD BROKER, Ibclc F41.9 M54.5 G47.00 R39.12 I83.93 Office Visit 04/30/2017 1:00p Family Medicine Claudio Peña, FOOD BROKER 40218 I83.93 Office Visit 04/17/2017 3:30p Family Medicine Yaquelin Helton PNP-BC, 73100 F41.9 FOOD BROKER, Ibclc Office Visit 02/28/2017 10:15a Family Medicine Yaquelin Helton PNP-BC, 42868 M54.5 FOOD BROKER, Ibclc M25.512 Office Visit 12/20/2016 3:30[place] [address] K22.70 R14.0 R19.4 R10.9 K59.00 Office Visit 11/27/2016 1:45p Family Medicine Claudio Peña, FOOD BROKER 13791 M54.5 Office Visit 11/21/2016 10:00a Family Medicine Yaquelin Helton PNP-BC, 84784 M54.5 FOOD BROKER, Ibclc M62.830 Office Visit 11/16/2016 1:15p Family Medicine Claudio Peña, FOOD BROKER 40760 M54.5 G47.09 R53.83 Office Visit 10/11/2016 2:30p Family Medicine Yaquelin Helton PNP-BC, 76320 M62.830 FOOD BROKER, Ibclc N32.9 F31.89 Office Visit 09/07/2016 9:30a Family Medicine Yaquelin Helton PNP-BC, 25181 M62.830 FOOD BROKER, Ibclc Office Visit 08/10/2016 2:45p Surgical Office Efraín Jaquez 66388 K64.5 Valentin Yusuf Z12.11 K62.3 Office Visit 07/31/2016 10:30a Surgical Office Jace Wallace MD,[facility] 04502 K64.5 Office Visit 07/21/2016 9:15[place] [address] K22.70 K29.70 K59.04 Office Visit 07/06/2016 1:30p Surgical Office Efraín Jaquez, 90969 K62.3 M.DSatish Office Visit 06/26/2016 10:15a Family Medicine Yaquelin Helton PNP-BC, 97334 J02.8 FOOD BROKER, Ibclc M54.5 Office Visit 06/16/2016 11:15[place] [address] K59.04 K62.3 Office Visit 06/14/2016 1:00p Family Medicine Yaquelin Helton PNP-BC, 52726 M54.5 FOOD BROKER, Ibclc K59.00 G24.01 Office Visit 05/31/2016 2:00p Family Medicine Yaquelin Helton PNP-BC, 68298 K59.00 FOOD BROKER, Ibclc N81.6 F31.9 G24.01 Plan of Care Future Appointment(s):04/16/2018 9:45 am - Gunner Still MD at GI02/12/2018 - Cassidy Charles, PAR41.840 Attention and concentration deficitNew Xrays:CT, Head Or Brain With ContrastCT, Cervical Spine, W/&W/O ContrastComments:Let' s stop the Famotadine. Rest and drink plenty of water. We are going to check some labs and see if we can identify the source of your symptoms. Please keep me posted as to symptoms changes.R26.0 Ataxic gait
--- NOTE | 2018-02-21 20:43 | ED ---
Throat Pain/Nasal Congestion - HPI Summary HPI Summary: Patient with history of Spivey's esophagus complain of sensation of foreign body in his esophagus at the base of his neck. Patient was evaluated by GI with endoscopy 3 weeks ago with negative biopsies. Positive hiatal hernia seen. Patient seen 1 week ago by GI for persistent chest pain and back pain and prescribed nifedipine. Patient was seen [facility] for chest pain one week ago with negative cardiac workup. Patient states nifedipine has been controlling chest pain and back pain, but that sensation of foreign body in his throat started today, advised to come to the ED by GI. Denies active chest pain or back pain today. Patient states he is eating and drinking normally. Tolerating oral fluids. Denies fever, cough, sore throat, CP, SOB, N/V/D, abdominal pain, change in urine, change in BM. Has pending appointment in [place] for esophageal function test. Patient states he is mostly looking for symptom control while waiting for esophageal function test. Patient hoping he could get a prescription for lidocaine. - History of Current Complaint Chief Complaint: EDThroatPain Time Seen by Provider: 02/21/18 20:12 Hx Obtained From: Patient Onset/Duration: Gradual Onset Severity: Moderate Associated Signs And Symptoms: Positive: Negative Cough: None - Allergies/Home Medications Allergies/Adverse Reactions: Allergies Allergy/AdvReac Type Severity Reaction Status Date / Time Penicillins Allergy Nausea And Verified 01/21/18 21:50 Vomiting pregabalin [From Lyrica] Allergy See Comment Verified 01/21/18 21:50 PMH/Surg Hx/FS Hx/Imm Hx GI History: Reports: Hx Hiatal Hernia History: Denies: Hx Dialysis EENT History: Denies: Hx Deafness Psychiatric History: Reports: Hx Bipolar Disorder - Surgical History Surgery Procedure, Year, and Place: Back surgeries. Dorsal Column Stimulator, appy, varicocele repair, speed banding for hemorrhoids Infectious Disease History: No Infectious Disease History: Denies: Hx Clostridium Difficile, Hx Hepatitis, Hx Human Immunodeficiency Virus (HIV), Hx of Known/Suspected MRSA, Hx Shingles, Hx Tuberculosis, Hx Known/ Suspected VRE, Hx Known/Suspected VRSA, History Other Infectious Disease, Traveled Outside the [place] in Last 30 Days - Family History Known Family History: Negative: Renal Disease - Social History Alcohol Use: None Substance Use Type: Reports: None Smoking Status (MU): Former Smoker Amount Used/How Often: 1 ppd Length of Time of Smoking/Using Tobacco: 10 -15 years Have You Smoked in the Last Year: No Review of Systems Constitutional: Negative Eyes: Negative Positive: Other Cardiovascular: Negative Respiratory: Negative Gastrointestinal: Negative Genitourinary: Negative Musculoskeletal: Negative Skin: Negative Neurological: Negative Psychological: Normal All Other Systems Reviewed And Are Negative: Yes Physical Exam Triage Information Reviewed: Yes Vital Signs On Initial Exam: Initial Vitals Temp Pulse Resp BP Pulse Ox 97.8 F 80 20 132/98 99 02/21/18 19:49 02/21/18 19:49 02/21/18 19:49 02/21/18 19:49 02/21/18 19:49 Vital Signs Reviewed: Yes Appearance: Positive: Well-Appearing Skin: Positive: Warm Head/Face: Positive: Normal Head/Face Inspection Eyes: Positive: Normal ENT: Positive: Normal ENT inspection Neck: Positive: Supple Respiratory/Lung Sounds: Positive: Clear to Auscultation Cardiovascular: Positive: Normal Abdomen Description: Positive: Nontender Musculoskeletal: Positive: Normal Neurological: Positive: Normal Psychiatric: Positive: Normal AVPU Assessment: Alert - Artem Coma Scale Best Eye Response: 4 - Spontaneous Best Motor Response: 6 - Obeys Commands Best Verbal Response: 5 - Oriented Coma Scale Total: 15 Diagnostics - Vital Signs Vital Signs Temp Pulse Resp BP Pulse Ox 02/21/18 19:49 97.8 F 80 20 132/98 99 - Laboratory Lab Statement: Any lab studies that have been ordered have been reviewed, and results considered in the medical decision making process. EENT Course/Dx - Course Course Of Treatment: Patient with history of Spivey's esophagus complain of sensation of foreign body in his esophagus at the base of his neck. Patient was evaluated by GI with endoscopy 3 weeks ago with negative biopsies. Positive hiatal hernia seen. Patient seen 1 week ago by GI for persistent chest pain and back pain and prescribed nifedipine. Patient was seen [facility] for chest pain one week ago with negative cardiac workup. Patient states nifedipine has been controlling chest pain and back pain, but that sensation of foreign body in his throat started today, advised to come to the ED by GI. Denies active chest pain or back pain today. Patient states he is eating and drinking normally. Tolerating oral fluids. Denies fever, cough, sore throat, CP, SOB, N/V/D, abdominal pain, change in urine, change in BM. Has pending appointment in [place] for esophageal function test. Patient states he is mostly looking for symptom control while waiting for esophageal function test. Patient hoping he could get a prescription for lidocaine. Physical exam unremarkable. History of Spivey's esophagus. Sensation of foreign body at base of neck. History of same. Has been evaluated by GI 3 weeks ago with endoscopathy and negative biopsies. Seen again by GI 1 week ago for symptoms of CP and back pain related to Spivey's and placed on nifedipine. Patient has also been evaluated at [facility] for chest pain with negative cardiac workup. Currently Eating and drinking okay. Tolerating saliva. No shortness of breath. Vital signs normal. No active chest pain or back pain sx today. Pending appointment with GI in [place] for esophageal function study. Just wants symptom management for discomfort. GI prescribed nifedipine which is working intermittently. Rx for lidocaine. - Diagnoses Provider Diagnoses: Barretts esophagus Discharge - Sign-Out/Discharge Documenting (check all that apply): Patient Departure - Discharge Plan Condition: Stable Disposition: HOME Prescriptions: Lidocaine 2% VISCOUS* [Xylocaine 2% Viscous*] 15 ml SWISH SPIT Q6H PRN #1 btl PRN Reason: Pain Patient Education Materials: Esophagitis (ED) Referrals: Yaquelin Helton NP [Primary Care Provider] - Additional Instructions: Follow-up with your GI specialist. Return to the ED for any new or worsening symptoms - Billing Disposition and Condition Condition: STABLE Disposition: Home
[2018-02-21 21:11] VITALS: BP 122/76
== END | disposition home or self-care (01) ==
LOC: ED 19:47
DX: K22.70 Barrett's esophagus without dysplasia (principal); Z87.891 Personal history of nicotine dependence; Z88.0 Allergy status to penicillin
CPT/HCPCS: 99282; A9270-GY

== ENCOUNTER 2018-05-02 10:11 | Emergency (ER) | payer SELFPAY ==
--- OUTSIDE RECORDS SUMMARY | 2018-05-02 10:26 | XMS REPORT | Continuity of Care Document ---
:1970 External Reference #:[id number] Author Name Yaquelin Helton PNP-BC, [facility] Address [address] [place] [address] Care Team Providers Name Role Phone Yaquelin Helton, SHAINA, [facility] Care Team Information Respite Care Provider Unavailable Yaquelin Helton PNP-BC, RENE, [facility] Primary Care Physician Unavailable Payers Type Date Identification Numbers Payment Provider Subscriber Effective: Policy Number: [id number] [employer] Danilo Nicole 2018 PayID: [id number] [address] [place] [address] Expires: 2018 Policy Number: [id number] [place] [employer] Danilo Nicole PayID: [id number] [address] [place] [address] Expires: 2018 Policy Number: [id number] [employer] Fatemeh Nicole PayID: [id number] [address] [place] [id number] Advance Directives Description No Information Available Problems Date Description Provider Status Onset: 06/16/2016 Chronic idiopathic constipation Victor Manuel Flaherty MD Active Onset: 07/21/2016 Spivey's esophagus Victor Manuel Flaherty MD Active Onset: 07/21/2016 Gastroduodenitis Victor Manuel Flaherty MD Active Onset: 07/24/2016 Thrombosed external hemorrhoids Jace Wallace MD,FACS Active Onset: 12/20/2016 Constipation Victor Manuel Flaherty MD Active Onset: 12/20/2016 Flatulence, eructation and gas pain Victor Manuel Flaherty MD Active Onset: 12/20/2016 Abdominal pain Victor Manuel Flaherty MD Active Onset: 12/20/2016 Digestive symptom Victor Manuel Flaherty MD Active Onset: 06/05/2017 Screening for malignant neoplasm of Clarke Zhang M.D. Active prostate Onset: 06/05/2017 Benign prostatic hypertrophy with Clarke Zhang M.D. Active outflow obstruction Onset: 06/05/2017 Retention of urine Clarke Zhang M.D. Active Onset: 06/19/2017 Nocturia Clarke Zhang M.D. Active Onset: 01/22/2018 Epigastric pain Gunner Still MD Active Onset: 03/07/2018 Emphysema, unspecified Laurie Serrano PA Active Onset: 03/07/2018 Gastro-esophageal reflux disease Laurie Serrano PA Active with esophagitis Family History Date Family Member(s) Problem(s) Comments General Colon Cancer General Diabetes Father Pacemaker Father Diabetes Father Father was in [employer] Mother No Current Problems Paternal Grandfather due to Unknown Causes () Paternal Grandmother due to Diabetes () Maternal Grandfather due to Alzheimer's Disease () Maternal Grandmother Unknown Social History Type Date Description Comments Sex Unknown Marital Status Lives With Alone Lives With Occupation Disabled Used to [employer] Work Status Disabled Tobacco Use Start: Unknown End: Quit Unknown Smoking Status Reviewed: 05/02/18 Quit ETOH Use Denies alcohol use Tobacco Use Start: Unknown End: Patient is a former smoker Recreational Drug Use Denies Drug Use Exercise Type/Frequency Does not exercise Allergies, Adverse Reactions, Alerts Date Description Reaction Status Severity Comments 05/31/2016 Lyrica Active 05/31/2016 Penicillin Active Medications Medication Date Status Form Strength Qnty SIG Indications Ordering Provider Zyrtec Active Tablets 10mg 30tabs Takes J43.9 Kheti, Allergy 018 daily, OTC MD Braeden Meloxicam Active Tablets 7.5mg 60tabs take one Garcia Helton tablet by chavo Jamison twice PNP-BC, a day for 2 [facility] weeks then as needed Linzess Active Capsules 145mcg 90caps 1 cap by R14.0 Garcia Still mouth every MD Gunner night, hold for unformed bm Paroxetine Active Tablets 10mg 90tabs take one FOUZIA Helton 018 tablet by Yaquelin, mouth every PNP-BC, day with [facility] 40mg tablet Paroxetine Active Tablets 40mg 90tabs 1 by mouth F41.9 DanieFOUZIA sevilla 018 every day Yaquelin, with 10mg PNP-BC, tablet [facility] Clonazepam Active Tablets 0.5mg 60tabs take 1 to 2 G47.00 Garcia Helton at bedtime Yaquelin, reference PNP-BC, #: [id number] [facility] F41.9 Jobst Active 04/30/2017 Active Misc 2Pair 2 pairs for I83.93 Clune, 15-20MMHG/Knee moderate (RT Jenniferleigh, High/Closed leg) and [facility] Toe/Medium severe (lt leg) varicosities Oxycodone-Acetam Active Tablets 5 30tabs 1 tablet Yaquelin Helton inophen - every 6 hours PNP-BC, [facility], 3 as needed Ibclc 2 Reference #: [id number] m g Tamsulosin HCL Active Capsules 0 60caps take 2 Yaquelin Helton, . capsules a PNP-BC, [facility], 4 day. Ibcl[facility] m g Esomeprazole Active Capsules 2 Take [address] 0 twice a day. m g Lidocaine Active Solution 2 600ml gaggle and Yaquelin Helton, Viscous % spit 5ml PNP-BC, [facility], every 4-6 Ibcl[facility] hours as needed Metaxalone Active Tablets 8 Take One Unknown 0 Tablet By 0 Mouth Three m Times A Day g For Muscle Spasms Cefdinir 02/25/2018 Hx Capsules 3 20caps 1 by mouth J01.90 Yaquelin Helton, - 0 twice a day PNP-BC, [facility], 03/07/2018 0 Ibclc m g Nifedipine 02/14/2018 Hx Capsules 1 90caps 1 tablet po Cheko, 0 tid MD Gunner m g Ventolin HFA 01/04/2018 Hx Aerosol 1 18gm Inhale 2 R05 Johanna Lopez, 0 puffs by [facility] 8 mouth every 3 ( hours as 9 needed for 0 shortness of B breath a s e ) m c g / A c t Benzonatate 01/04/2018 Hx Capsules 1 30caps take 1 R05 Johanna Lopez, 0 capsule by [facility] 0 mouth every 8 m hours for g coughing as needed Skelaxin 12/27/2017 Hx Tablets 8 60tabs 1 by mouth Yaquelin Helton, - 0 three times a PNP-BC, [facility], 02/19/2018 0 day for Ibclc m muscle [...] , - . mouth twice a PNP-BC, [facility], 09/11/2017 5 day as for 2 Ibclc m weeks and g then as needed Multivitamin 04/17/2017 Hx Tablets 30tabs 1 by mouth Yaquelin Helton, Adult - every day PNP-BC, [facility], 09/11/2017 Ibclc Vitamin C 04/17/2017 Hx Chewtabs 5 1 by mouth Yaquelin Helton, - 0 every day PNP-BC, [facility], 09/11/2017 0 Ibclc m g Paroxetine HCL 04/17/2017 Hx Tablets 2 30tabs 1 by mouth F41.9 Yaquelin Helton, - 0 every day PNP-BC, [facility], 05/23/2017 m Ibclc g Fexofenadine HCL 01/08/2017 Hx Tablets 1 30tabs 1 by mouth at Yaquelin Helton, - 8 night PNP-BC, [facility], 09/11/2017 0 Ibclc m g Fluticasone 01/08/2017 Hx Suspensio 5 16gm 2 sprays each Yaquelin Helton , Propionate - n 0 nare once a PNP-BC, [facility], 09/11/2017 m day Ibclc c g / A c t Ibuprofen 01/02/2017 Hx Tablets 6 240tab 1 tab three Yaquelin Helton, - 0 s times a day PNP-BC, [facility], 02/28/2017 0 as needed Ibclc m g Esomeprazole 12/20/2016 Hx Capsules 2 90caps 1 cap by K22.70 Victor Manuel Flaherty MD Magnesium - DR 0 mouth bid - 02/18/2018 m increased by g ER Vicodin ES 11/16/2016 Hx Tablets 7 40tabs one tablet M54.5 Clune, - . every 6 hours Claudio, 01/02/2017 5 as needed for [facility] - moderate to 3 severe pain 0 Reference #: [id number] m g Ziprasidone HCL 10/11/2016 Hx Capsules 2 30caps 1 tab po qhs Yaquelin Helton, 0 PNP-BC, [facility], m [facility]cl[facility] g Metaxalone 10/11/2016 Hx Tablets 8 60tabs 1 tab by M62.830 Yaquelin Helton, - 0 mouth three PNP-BC, [facility], 02/28/2017 0 times a day Ibclc m as needed for g pain Cyclobenzaprine 09/07/2016 Hx Tablets 1 45tabs 1 by mouth M62.830 Yaquelin Helton, HCL - 0 three times a PNP-BC, [facility], 10/11/2016 m day as needed Ibclc g [...] Yaquelin Helton, 5 by mouth on PNP-BC, [facility], 0 day 1 then 1 Ibclc m tab by mouth g every days 2-5 Vitamin E-400 06/26/2016 Hx Capsules 4 3 by mouth Yaquelin Helton, - 0 every day PNP-BC, [facility], 10/11/2016 0 Ibclc U n i t [...] Helton, - m day as needed PNP-BC, [facility], 01/02/2017 g Reference #: Ibclc [id number] Vitamin D3 High Hx Capsules 1 1 by mouth Unknown Potency - 0 every day 10/11/2016 0 0 U n i t Benadryl Allergy Hx Capsules 2 30caps using otc Yaquelin Helton, - 5 prn PNP-BC, [facility], 03/07/2018 m Ibclc g Ibuprofen Hx Tablets 6 1 by mouth Unknown - 0 every 6 hours 10/11/2016 0 as needed m pain use as g first line pain control Flomax Hx Capsules 0 1 tab by Unknown . mouth every 4 day 30 m minutes after g a meal Oxycodone-Acetam Hx Tablets 5 60tabs take one to Yaquelin Helton inophen - - two tablets PNP-BC, [facility], 09/11/2017 3 by mouth Ibclc 2 every 6 hours 5 as needed for m pain g reference #: [id number] Tamsulosin HCL Hx Capsules 0 90caps 1 tab daily Vicente, - . Valentin Mir 06/20/2017 4 m g Melatonin Hx Capsules 1 1 by mouth Unknown - 0 every at 02/12/2018 m bedtime g Cyclobenzaprine Hx Tablets 1 90tabs 1 tab by Yaquelin Helton, HCL - 0 mouth three PNP-BC, [facility], 01/04/2018 m times a day Ibclc g [...] CPT Code Status Date Vaccine Lot # [id number] Given 02/25/2018 Pneumovax Injection [id number] Given 01/07/2018 Influenza Virus Vaccine, Quadrivalent, 36 Mos+, [id number] .[id number] Given 01/25/2017 Influenza Virus Vaccine Quadrivalent [id number] Split [id number] Preser Free Id Vital Signs Date Vital Result Comment 04/10/2018 10:39am BP Systolic Sitting Right Arm 122 mmHg BP Diastolic Sitting Right Arm 80 mmHg Body Temperature 97.5 F Heart Rate 63 /min Respiratory Rate 12 /min Height 70 inches 5'10" Weight 240.00 lb BMI (Body Mass Index) 34.4 kg/m2 BSA (Body Surface Area) 2.26 m2 Roberts body weight in kilograms 75 kg O2 % BldC Oximetry 98 % 03/07/2018 1:01pm BP Systolic Sitting Left Arm 132 mmHg BP Diastolic Sitting Left Arm 70 mmHg Body Temperature 97.7 F Heart Rate 70 /min Respiratory Rate 18 /min Height 70 inches 5'10" Weight 240.00 lb BMI (Body Mass Index) 34.4 kg/m2 BSA (Body Surface Area) 2.26 m2 Roberts body weight in kilograms 75 kg O2 % BldC Oximetry 97 % 02/25/2018 12:26pm BP Systolic Sitting Left Arm 116 mmHg BP Diastolic Sitting Left Arm 78 mmHg Body Temperature 98.2 F Heart Rate 74 /min Respiratory Rate 20 /min Height 70 inches 5'10" Weight 234.00 lb BMI (Body Mass Index) 33.6 kg/m2 BSA (Body Surface Area) 2.23 m2 Roberts body weight in kilograms 75 kg O2 % BldC Oximetry 95 % Room air 02/21/2018 2:02pm BP Systolic Sitting Right Arm 126 mmHg BP Diastolic Sitting Right Arm 78 mmHg Heart Rate 79 /min Respiratory Rate 16 /min Height 70 inches 5'10" Weight 232.00 lb BMI (Body Mass Index) 33.3 kg/m2 BSA (Body Surface Area) 2.22 m2 Roberts body weight in kilograms 75 kg O2 % BldC Oximetry 97 % Room air 02/12/2018 3:07pm BP Systolic Sitting Right Arm 128 mmHg BP Diastolic Sitting Right Arm 78 mmHg Body Temperature 98.0 F Heart Rate 75 /min Weight 236.50 lb O2 % BldC Oximetry 95 % 01/22/2018 3:06pm BP Systolic Sitting Left Arm 114 mmHg BP Diastolic Sitting Left Arm 82 mmHg Heart Rate 74 /min Respiratory Rate 16 /min Height 70 inches 5'10" Weight 232.00 lb BMI (Body Mass Index) 33.3 kg/m2 BSA (Body Surface Area) 2.22 m2 Roberts body weight in kilograms 75 kg 01/04/2018 8:28am BP Systolic Sitting Left Arm 112 mmHg BP Diastolic Sitting Left Arm 72 mmHg Heart Rate 78 /min Respiratory Rate 20 /min Height 70 inches 5'10" Weight 231.00 lb BMI (Body Mass Index) 33.1 kg/m2 BSA (Body Surface Area) 2.22 m2 Roberts body weight in kilograms 75 kg O2 % BldC Oximetry 95 % 12/27/2017 4:22pm BP Systolic Sitting Left Arm 142 mmHg BP Diastolic Sitting Left Arm 92 mmHg Heart Rate 88 /min Height 70 inches 5'10" Weight 232.38 lb BMI (Body Mass Index) 33.3 kg/m2 BSA (Body Surface Area) 2.22 m2 Roberts body weight in kilograms 75 kg O2 % BldC Oximetry 95 % 12/05/2017 11:33am BP Systolic Sitting Left Arm 118 mmHg BP Diastolic Sitting Left Arm 74 mmHg Body Temperature 97.6 F Heart Rate 78 /min Weight 228.00 lb O2 % BldC Oximetry 97 % 10/15/2017 1:50pm BP Systolic 120 mmHg BP Diastolic 76 mmHg Body Temperature 98.0 F Heart Rate 68 /min Respiratory Rate 17 /min Weight 223.00 lb O2 % BldC Oximetry 97 % 09/27/2017 11:03am BP Systolic 132 mmHg BP Diastolic 80 mmHg 09/11/2017 1:55pm BP Systolic 138 mmHg BP Diastolic 94 mmHg Heart Rate 73 /min Respiratory Rate 16 /min Height 70 inches 5'10" Weight 222.00 lb BMI (Body Mass Index) 31.9 kg/m2 BSA (Body Surface Area) 2.18 m2 Roberts body weight in kilograms 75 kg 08/28/2017 1:27pm BP Systolic 122 mmHg BP Diastolic 78 mmHg Heart Rate 72 /min Height 70 inches 5'10" Weight 222.00 lb BMI (Body Mass Index) 31.9 kg/m2 BSA (Body Surface Area) 2.18 m2 Roberts body weight in kilograms 75 kg O2 % BldC Oximetry 97 % 08/09/2017 11:43am BP Systolic 117 mmHg BP Diastolic 82 mmHg Body Temperature 97.3 F Heart Rate 72 /min Respiratory Rate 18 /min Height 70 inches 5'10" Weight 216.00 lb BMI (Body Mass Index) 31.0 kg/m2 BSA (Body Surface Area) 2.16 m2 Roberts body weight in kilograms 75 kg O2 % BldC Oximetry 97 % Pain Level 0 06/20/2017 10:56am BP Systolic 112 mmHg BP Diastolic 72 mmHg Body Temperature 97.0 F Heart Rate 84 /min Respiratory Rate 17 /min Height 70 inches 5'10" Weight 212.00 lb BMI (Body Mass Index) 30.4 kg/m2 BSA (Body Surface Area) 2.14 m2 Roberts body weight in kilograms 75 kg O2 % BldC Oximetry 98 % 06/19/2017 11:05am BP Systolic 129 mmHg BP Diastolic 91 mmHg Body Temperature 97.7 F Heart Rate 73 /min Respiratory Rate 17 /min Height 70 inches 5'10" Weight 212.12 lb BMI (Body Mass Index) 30.4 kg/m2 BSA (Body Surface Area) 2.14 m2 Roberts body weight in kilograms 75 kg O2 % BldC Oximetry 99 % Pain Level 3 Low back 06/05/2017 1:52pm BP Systolic 119 mmHg BP Diastolic 69 mmHg Body Temperature 98.1 F Heart Rate 72 /min Respiratory Rate 14 /min Height 70 inches 5'10" Weight 209.12 lb BMI (Body Mass Index) 30.0 kg/m2 BSA (Body Surface Area) 2.13 m2 Roberts body weight in kilograms 75 kg Pain Level 3 chronic back pain per pt 05/23/2017 12:15pm BP Systolic 122 mmHg BP Diastolic 80 mmHg Body Temperature 97.9 F Heart Rate 76 /min Respiratory Rate 17 /min Height 70 inches 5'10" Weight 206.50 lb BMI (Body Mass Index) 29.6 kg/m2 BSA (Body Surface Area) 2.12 m2 Roberts body weight in kilograms 75 kg O2 % BldC Oximetry 97 % 04/30/2017 1:02pm BP Systolic Sitting Left Arm 118 mmHg BP Diastolic Sitting Left Arm 72 mmHg Heart Rate 80 /min Respiratory Rate 18 /min Height 70 inches 5'10" Weight 205.25 lb BMI (Body Mass Index) 29.4 kg/m2 BSA (Body Surface Area) 2.11 m2 Roberts body weight in kilograms 75 kg 04/17/2017 3:23pm BP Systolic 112 mmHg BP Diastolic 76 mmHg Body Temperature 96.7 F Heart Rate 76 /min Height 70 inches 5'10" Weight 205.00 lb BMI (Body Mass Index) 29.4 kg/m2 BSA (Body Surface Area) 2.11 m2 Roberts body weight in kilograms 75 kg O2 % BldC Oximetry 97 % 02/28/2017 10:03am BP Systolic 112 mmHg BP Diastolic 64 mmHg Heart Rate 78 /min Height 70 inches 5'10" Weight 192.00 lb BMI (Body Mass Index) 27.5 kg/m2 BSA (Body Surface Area) 2.05 m2 Roberts body weight in kilograms 75 kg 12/20/2016 3:17pm BP Systolic Sitting Left Arm 116 mmHg BP Diastolic Sitting Left Arm 70 mmHg Heart Rate 73 /min Respiratory Rate 16 /min Height 70 inches 5'10" Weight 182.00 lb BMI (Body Mass Index) 26.1 kg/m2 BSA (Body Surface Area) 2.01 m2 Roberts body weight in kilograms 75 kg 11/27/2016 1:48pm BP Systolic 138 mmHg BP Diastolic 88 mmHg Height 70 inches 5'10" Weight 185.00 lb BMI (Body Mass Index) 26.5 kg/m2 BSA (Body Surface Area) 2.02 m2 Roberts body weight in kilograms 75 kg 11/21/2016 9:58am BP Systolic 108 mmHg BP Diastolic 62 mmHg Height 70 inches 5'10" Roberts body weight in kilograms 75 kg 11/16/2016 1:11pm BP Systolic 116 mmHg BP Diastolic 78 mmHg Heart Rate 74 /min Height 70 inches 5'10" Weight 181.00 lb BMI (Body Mass Index) 26.0 kg/m2 BSA (Body Surface Area) 2.00 m2 Roberts body weight in kilograms 75 kg 10/11/2016 2:23pm BP Systolic 154 mmHg BP Diastolic 76 mmHg Heart Rate 79 /min Height 70 inches 5'10" Weight 179.00 lb BMI (Body Mass Index) 25.7 kg/m2 BSA (Body Surface Area) 1.99 m2 Roberts body weight in kilograms 75 kg 09/07/2016 9:17am BP Systolic 132 mmHg BP Diastolic 76 mmHg Body Temperature 98.0 F Heart Rate 60 /min Height 70 inches 5'10" Weight 177.00 lb BMI (Body Mass Index) 25.4 kg/m2 BSA (Body Surface Area) 1.98 m2 Roberts body weight in kilograms 75 kg O2 % BldC Oximetry 98 % 07/31/2016 10:24am BP Systolic 120 mmHg BP Diastolic 80 mmHg Height 70 inches 5'10" Weight 174.00 lb BMI (Body Mass Index) 25.0 kg/m2 BSA (Body Surface Area) 1.97 m2 07/26/2016 1:19pm BP Systolic 118 mmHg BP Diastolic 76 mmHg Height 70 inches 5'10" Weight 174.00 lb BMI (Body Mass Index) 25.0 kg/m2 BSA (Body Surface Area) 1.97 m2 07/24/2016 1:17pm BP Systolic 120 mmHg BP Diastolic 80 mmHg Body Temperature 97.5 F Height 70 inches 5'10" Weight 174.00 lb BMI (Body Mass Index) 25.0 kg/m2 BSA (Body Surface Area) 1.97 m2 07/21/2016 9:49am BP Systolic Sitting Left Arm 102 mmHg BP Diastolic Sitting Left Arm 70 mmHg Heart Rate 67 /min Respiratory Rate 16 /min Height 70 inches 5'10" Weight 178.00 lb BMI (Body Mass Index) 25.5 kg/m2 BSA (Body Surface Area) 1.99 m2 06/26/2016 10:13am BP Systolic Sitting Left Arm 114 mmHg BP Diastolic Sitting Left Arm 74 mmHg Body Temperature 97.7 F Heart Rate 56 /min Respiratory Rate 18 /min Height 70 inches 5'10" Weight 176.00 lb BMI (Body Mass Index) 25.3 kg/m2 BSA (Body Surface Area) 1.98 m2 Roberts body weight in kilograms 75 kg 06/16/2016 11:52am BP Systolic 124 mmHg BP Diastolic 80 mmHg Heart Rate 68 /min Weight 179.00 lb 06/14/2016 12:50pm BP Systolic Sitting Left Arm 118 mmHg BP Diastolic Sitting Left Arm 66 mmHg Body Temperature 98.3 F Heart Rate 66 /min Respiratory Rate 12 /min Height 70 inches 5'10" Weight 181.00 lb BMI (Body Mass Index) 26.0 kg/m2 BSA (Body Surface Area) 2.00 m2 05/31/2016 1:50pm BP Systolic Sitting Left Arm 122 mmHg BP Diastolic Sitting Left Arm 74 mmHg Heart Rate 80 /min Respiratory Rate 18 /min Height 70 inches 5'10" Weight 178.00 lb BMI (Body Mass Index) 25.5 kg/m2 BSA (Body Surface Area) 1.99 m2 Roberts body weight in kilograms 75 kg Results Test Date Facility Test Result H/L Range Note Laboratory test 02/20/[address] [facility] [address] Sedimentation Rate 7 mm/hr N 0-15 1, [address] [place] [address] [phone] C-Reactive Protein,Quant < 2.9 mg/L <3.0 Laboratory test 02/14/2018 [facility] Troponin-I < 0.015 3, [address] ng/[place] [address] [phone] CBC W/Automated 02/13/2018 [facility] White Blood 6.6 K/uL N 3.4-[address] Count 0.5 [place] [address] [phone] Red Blood Count 4.52 M/uL N 4.20-5.80 Hemoglobin 14.5 gm/dL N 12.8-17.0 Hematocrit 40.6 % N 38.0-48.0 Mean Cell Volume 89.8 fl N 80.0-96.0 Mean Corpuscular HGB 32.1 pg N 27.0-33.0 Mean Corpuscular HGB Conc 35.7 g/dL N 31.7-36.0 Platelet Count 240 K/uL N 155-360 Red Cell Distri Width SD 43.3 fl N 36-51 Red Cell Distri Width %CV 13.6 % N 11.6-15.8 Mean Platelet Volume 10.3 fL N 6.6-10.6 Neut% 48.6 % N 33.0-73.0 Lymph % 32.7 % N 20.0-42.0 [place] % 9.0 % N 0.0-10.0 Eo% 8.9 % High 0.0-6.6 Bas% 0.8 % N 0.0-1.1 Neut# 3.22 K/uL N 1.8-7.0 Lymph # 2.17 K/uL N 1.0-4.0 [place] # 0.60 K/uL N 0.0-0.8 Eos # 0.59 K/uL High 0.0-0.5 Baso # 0.05 K/uL N 0.0-0.1 CBC W/Automated Diff 02/12/[address] White Blood 5.9 K/uL N 3.4-10.[address] Count [place], [place] [id number] [phone] Red Blood Count 4.45 M/uL N 4.20-5.80 Hemoglobin 14.4 gm/dL N 12.8-17.0 Hematocrit 40.3 % N 38.0-48.0 Mean Cell Volume 90.6 fl N 80.0-96.0 Mean Corpuscular HGB 32.4 pg N 27.0-33.0 Mean Corpuscular HGB Conc 35.7 g/dL N 31.7-36.0 Platelet Count 239 K/uL N 155-360 Red Cell Distri Width SD 43.4 fl N 36-51 Red Cell Distri Width %CV 13.5 % N 11.6-15.8 Mean Platelet Volume 11.0 fL High 6.6-10.6 Neut% 54.7 % N 33.0-73.0 Lymph % 26.9 % N 20.0-42.0 A[place]ac % 8.0 % N 0.0-10.0 Eo% 9.7 % High 0.0-6.6 Bas% 0.7 % N 0.0-1.1 Neut# 3.23 K/uL N 1.8-7.0 Lymph # 1.59 K/uL N 1.0-4.0 [place]ac # 0.47 K/uL N 0.0-0.8 Eos # 0.57 K/uL High 0.0-0.5 Baso # 0.04 K/uL N 0.0-0.1 Comprehensive Metabolic 02/12/[address] Glucose 99 mg/dL N 74 -[address] [place], [place] [id number] [phone] BUN 12 mg/dL N 7-18 Creatinine 0.9 mg/dL N 0.6-1.3 Glom Filtration Rate, Estimate >60 mL/min >60 If >60 mL/min >60 6 BUN/Creat 13.3 ratio Sodium 139 mmol/L N 136-145 Potassium 3.7 mmol/L N 3.5-5.1 Chloride 108 mmol/L High 98-107 Carbon Dioxide 26 mmol/L N 21-32 Anion Gap 5 mEq/L Low 8-16 Calcium 8.6 mg/dL N 8.5-10.1 Total Protein 7.8 g/dL N 6.4-8.2 Albumin 4.0 g/dL N 3.4-5.0 Globulin 3.8 g/dL N 1.9-4.3 Alb/Glob 1.1 ratio Bilirubin,Total 0.5 mg/dL N 0.2-1.0 Sgot/Ast 29 U/L N 15-37 SGPT/Alt 40 U/L N 12-78 Alkaline Phosphatase 83 U/L N 45-117 Reflex add FT3? Y Reflex add FT4? Y Heavy Metals 02/12/[address] Lead,Blood None Detected 0-4 7 Profile I,Blood [address] g/[place] [address] [phone] Arsenic,Blood 4 ug/L 2-23 8 Mercury (B) None Detected ug/L 0.0-14.9 9 TSH Reflex FT4 02/12/[address] Thyroid Stim 1.04 uIU/mL N 0.30-4.20 And/Or FT3 [address] [place] [address] [phone] Reflex add FT3? Y Reflex add FT4? Y Lyme AB/Western 02/12/2018 [facility] [address] Lyme Total < 0.91 0.00-0.90 10 Blot Reflex [address] AB/[place] [address] [phone] Lyme Disease Antibody,QT,Igm < 0.80 index 0.00-0.79 11 Laboratory test 02/12/2018 [facility] [address] Treponema Negative Negative [address] [place] [address] [place] [phone] Comprehensive 01/21/2018 [facility] Glucose 91 mg/dL N 74-106 13 Metabolic Panel [address] [place] [address] [phone] BUN 12 mg/dL N 7-18 Creatinine 0.9 mg/dL N 0.6-1.3 Glom Filtration Rate, Estimate >60 mL/min >60 If >60 mL/min >60 14 BUN/Creat 13.3 ratio Sodium 143 mmol/L N 136-145 Potassium 4.0 mmol/L N 3.5-5.1 Chloride 107 mmol/L N 98-107 Carbon Dioxide 30 mmol/L N 21-32 Anion Gap 6 mEq/L Low 8-16 Calcium 8.2 mg/dL Low 8.5-10.1 Total Protein 7.2 g/dL N 6.4-8.2 Albumin 3.4 g/dL N 3.4-5.0 Globulin 3.8 g/dL N 1.9-4.3 Alb/Glob 0.9 ratio Bilirubin,Total 0.4 mg/dL N 0.2-1.0 Sgot/Ast 27 U/L N 15-37 SGPT/Alt 38 U/L N 12-78 Alkaline Phosphatase 83 U/L N 45-117 Laboratory test finding 01/21/2018 [facility] Lipase 117 U/L N 56-289 [address] [place] [address] [phone] Troponin-I < 0.015 ng/mL 15 Laboratory test 01/21/2018 [facility] D-Dimer, < 0.27 ug/mL [address] Quantitative [place], [place] [id number] [phone] Differential-WBC 01/21/2018 [facility] Total Cells Counted 100 #CELLS Confirm [address] [place] [id number] [phone] Band% 1 % N 0-8 Neutrophils% 51 % N 33-73 Lymph% 32 % N 20-42 Atypical Lymph% 2 % N 0-7 Monocyte% 8 % N 0-10 Eosinophil% 6 % High 0-5 Platelet Estimate NORMAL Anisocytosis 0-1+ Toxic Granulation 0-1+ Laboratory test 01/21/2018 [facility] Slide Review DIFF ORDERED finding [address] [place] [id number] [phone] CBC W/Automated 01/21/2018 [facility] White Blood 7.0 K/uL N 3.4-10. Diff [address] [place] [address] [phone] Red Blood Count 4.49 M/uL N 4.20-5.80 Hemoglobin 14.3 gm/dL N 12.8-17.0 Hematocrit 40.1 % N 38.0-48.0 Mean Cell Volume 89.3 fl N 80.0-96.0 Mean Corpuscular HGB 31.8 pg N 27.0-33.0 Mean Corpuscular HGB Conc 35.7 g/dL N 31.7-36.0 Platelet Count 234 K/uL N 155-360 Red Cell Distri Width SD 42.3 fl N 36-51 Red Cell Distri Width %CV 13.2 % N 11.6-15.8 Mean Platelet Volume 9.6 fL N 6.6-10.6 Neut% 52.1 % N 33.0-73.0 Lymph % 31.1 % N 20.0-42.0 [place]ac % 10.6 % High 0.0-10.0 Eo% 5.6 % N 0.0-6.6 Bas% 0.6 % N 0.0-1.1 Neut# 3.65 K/uL N 1.8-7.0 Lymph # 2.18 K/uL N 1.0-4.0 [place]ac # 0.74 K/uL N 0.0-0.8 Eos # 0.39 K/uL N 0.0-0.5 Baso # 0.04 K/uL N 0.0-0.1 Comprehensive 12/05/2017 [facility] Glucose 133 mg/dL High 74-106 17 Metabolic Panel [address] [place] [address] [phone] BUN 12 mg/dL N 7-18 Creatinine 1.0 mg/dL N 0.6-1.3 Glom Filtration Rate, Estimate >60 mL/min >60 If >60 mL/min >60 18 BUN/Creat 12.0 ratio Sodium 141 mmol/L N 136-145 Potassium 4.0 mmol/L N 3.5-5.1 Chloride 107 mmol/L N 98-107 Carbon Dioxide 24 mmol/L N 21-32 Anion Gap 10 mEq/L N 8-16 Calcium 8.9 mg/dL N 8.5-10.1 Total Protein 7.5 g/dL N 6.4-8.2 Albumin 3.8 g/dL N 3.4-5.0 Globulin 3.7 g/dL N 1.9-4.3 Alb/Glob 1.0 ratio Bilirubin,Total 0.4 mg/dL N 0.2-1.0 Sgot/Ast 21 U/L N 15-37 SGPT/Alt 34 U/L N 12-78 Alkaline Phosphatase 93 U/L N 45-117 CBC W/Automated Diff 12/05/2017 [facility] White Blood 7.2 K/uL N 3.4-10.[address] [place] [place] [address] [phone] Red Blood Count 4.68 M/uL N 4.20-5.80 Hemoglobin 15.1 gm/dL N 12.8-17.0 Hematocrit 43.2 % N 38.0-48.0 Mean Cell Volume 92.3 fl N 80.0-96.0 Mean Corpuscular HGB 32.3 pg N 27.0-33.0 Mean Corpuscular HGB Conc 35.0 g/dL N 31.7-36.0 Platelet Count 220 K/uL N 155-360 Red Cell Distri Width SD 43.9 fl N 36-51 Red Cell Distri Width %CV 13.3 % N 11.6-15.8 Mean Platelet Volume 11.0 fL High 6.6-10.6 Neut% 57.7 % N 33.0-73.0 Lymph % 27.0 % N 20.0-42.0 Arenac % 5.5 % N 0.0-10.0 Eo% 9.2 % High 0.0-6.6 Bas% 0.6 % N 0.0-1.1 Neut# 4.13 K/uL N 1.8-7.0 Lymph # 1.93 K/uL N 1.0-4.0 Arenac # 0.39 K/uL N 0.0-0.8 Eos # 0.66 K/uL High 0.0-0.5 Baso # 0.04 K/uL N 0.0-0.1 LDL Cholesterol Profile 12/05/2017 [facility] Cholesterol 159 mg/dL <200 19 [address] [place], [place] [id number] [phone] Triglycerides 241 mg/dL High <150 20 HDL Cholesterol 34 mg/dL Low >40 21 LDL-Cholesterol 77 mg/dL < 100 22 Glycohemoglobin A1c 12/05/2017 [facility] Glycohemoglobin 5.2 % N 4.2-6.3 23 [address] [facility] (A1c) [place], [place] [id number] [phone] eAG 103 mg/dL Laboratory test 06/05/2017 [facility] Prostate 0.76 ng/mL < 4.0 24, 25 finding [address] [facility] [place] [address] Antigen [phone] Ua RFX Micro & 06/05/2017 [facility] Urine Color YELLOW Yellow Culture II [address] [place] [address] [phone] Urine Clarity CLEAR Clear Urine Glucose - Dipstick NEGATIVE mg/dL Negative Urine Bilirubin - Dipstick NEGATIVE Negative Urine Ketone NEGATIVE mg/dL Negative Urine Specific Solomon <=1.005 Low 1.010-1.030 Urine Blood NEGATIVE Negative Urine PH 6.5 N 6.5-7.5 Urine Protein - Dipstick NEGATIVE mg/dL Negative Urine Urobilinogen - Dipstick 0.2 E.U./dL N 0.2-1.0 Urine Nitrite - Dipstick NEGATIVE Negative Urine Leuk Esterase NEGATIVE Negative Laboratory 12/21/2016 [facility] Sedimentation Rate 2 mm/hr N 0-15 26, 27 test finding [address] [place] [address] [phone] Celiac Disease 12/21/2016 [facility] Immunoglobulin A 265 mg/dL 90-386 28 Comp AB [address] [place] [address] [phone] Antigliadin Abs, IgG 2 units 0-19 29 Antigliadin Abs, IgA 11 units 0-19 30 Endomysial IgA Antibody Negative Negative t-Transglutaminase IgA <2 U/mL 0-3 31 t-Transglutaminase IgG <2 U/mL 0-5 32 Laboratory test 12/21/2016 [facility] Calprotectin, < 16 ug/g 0-[address] [place] [address] [phone] Stool Culture 12/21/2016 [facility] Stool Culture NO ENTERIC [address] PATHO <[place] [address] NOTE> [phone] . ................ <SEE NOTE> N 35 Note: INCLUDES TESTING <SEE NOTE> N 36 . PLESIOMONAS, CAM <SEE NOTE> N 37 . ................ <SEE NOTE> N 38 . YERSINIA AND VIB <SEE NOTE> N 39 . SHOULD BE REQUES <SEE NOTE> N 40 Shiga Toxin 1 Antigen SHIGA TOXIN 1 NO <SEE NOTE> 41 Shiga Toxin 2 Antigen SHIGA TOXIN 2 NO <SEE NOTE> 42 Ova & Parasite 12/21/2016 [facility] Cryptosporidium NEGATIVE FOR 43 Antigen Screen [address] Specific Ag CRY <[place] [address] NOTE> [phone] Giardia Specific Antigen NEGATIVE FOR MAYRA <SEE NOTE> 44 Fecal Fat, Qualitative 12/21/2016 [facility] Fats, Neutral Normal . [address] [place] [address] [phone] Fats, Total Normal . 46 Laboratory test 12/21/2016 [facility] C. Difficile C-DIFF TOXIN [address] Toxin B By PCR B: <[place] [address] NOTE> [phone] Vitamin B12 And 12/21/2016 [facility] Vitamin B12 335 pg/mL N 193-[address] [place] [address] [phone] Folic Acid 18.5 ng/mL High 3.1-17.5 Laboratory 12/21/2016 [facility] Pancreatic > 500.0 >200 48 test finding [address] Elastase (Pe-1) ug/[place] [address] [phone] Thyroid 11/16/[address] Thyroglobulin 2.9 High 0.0-0.9 49, Antibodies [address] Antibody IU/mL 50 [place] [address] [phone] Thyroid Peroxidase Antibodies 16 IU/mL 0-34 51 Laboratory test 11/16/[address] Thyroid Stim 3.03 uIU/mL N 0.30-4.[address] [place] [address] [phone] CBS W/Automated 11/16/[address] White Blood 5.2 K/uL N 3.4- 10.[address] [place] [address] [phone] Red Blood Count 4.91 M/uL N 4.20-5.80 Hemoglobin 15.8 gm/dL N 12.8-17.0 Hematocrit 43.0 % N 38.0-48.0 Mean Cell Volume 87.6 fl N 80.0-96.0 Mean Corpuscular HGB 32.2 pg N 27.0-33.0 Mean Corpuscular HGB Conc 36.7 g/dL High 31.7-36.0 Platelet Count 219 K/uL N 150-400 Red Cell Distri Width SD 41.8 fl N 36-51 Red Cell Distri Width %CV 13.4 % N 11.6-15.8 Mean Platelet Volume 10.4 fL N 6.6-10.6 Neut% 44.0 % N 33.0-73.0 Lymph % 34.0 % N 20.0-42.0 Arenac % 7.2 % N 0.0-10.0 Eo% 13.6 % High 0.0-6.6 Bas% 1.2 % High 0.0-1.1 Neut# 2.27 K/uL N 1.8-7.0 Lymph # 1.75 K/uL N 1.0-4.0 Arenac # 0.37 K/uL N 0.0-0.8 Eos # 0.70 K/uL High 0.0-0.5 Baso # 0.06 K/uL N 0.0-0.1 Laboratory test 11/16/[address] Slide Review (SEE NOTE) 52 finding [address] [place], [place] [address] [phone] Ua RFX Micro & 11/15/2016 [facility] Urine Color YELLOW Yellow 53 Culture II [address] [place], [place] [id number] [phone] Urine Clarity CLEAR Clear Urine Glucose - Dipstick NEGATIVE mg/dL Negative Urine Bilirubin - Dipstick NEGATIVE Negative Urine Ketone NEGATIVE mg/dL Negative Urine Specific Solomon 1.010 N 1.010-1.030 Urine Blood NEGATIVE Negative Urine PH 5.5 Low 6.5-7.5 Urine Protein - Dipstick NEGATIVE mg/dL Negative Urine Urobilinogen - Dipstick 0.2 E.U./dL N 0.2-1.0 Urine Nitrite - Dipstick NEGATIVE Negative Urine Leuk Esterase NEGATIVE Negative Source: URINE, CLEAN CAT <SEE NOTE> 54 Ua RFX Micro & Culture 07/21/2016 [facility] Urine Color YELLOW Yellow 55 II [address] [place] [address] [phone] Urine Clarity CLEAR Clear Urine Glucose - Dipstick NEGATIVE mg/dL Negative Urine Bilirubin - Dipstick NEGATIVE Negative Urine Ketone TRACE mg/dL High Negative Urine Specific Solomon 1.015 N 1.010-1.030 Urine Blood NEGATIVE Negative Urine PH 6.5 N 6.5-7.5 Urine Protein - Dipstick NEGATIVE mg/dL Negative Urine Urobilinogen - Dipstick 0.2 E.U./dL N 0.2-1.0 Urine Nitrite - Dipstick NEGATIVE Negative Urine Leuk Esterase NEGATIVE Negative Source: URINE, CLEAN CAT <SEE NOTE> 56 Throat 06/26/2016 [facility] Throat BETA Abnormal 57, 58 Strep [address] [facility] Strep STRE[place] [address] Screen <SEE NOTE> [phone] Quantity MODERATE N Recommended Therapy: PENICILLIN OR AM <SEE NOTE> N 59 Alternative Therapy: ERYTHROMYCIN MAY <SEE NOTE> N 60 1 R41.840 2 Method: Sediplast Modified [...] developed and its performance characteristics determined by [employer]. It has not been cleared or approved by the Food and Drug Administration. 8 Detection Limit=1 9 Environmental Exposure: <15.0 Occupational Exposure: KARLO - Inorganic Mercury: 15.0 Detection Limit=1.0 10 Negative <0.91 Equivocal 0.91 - 1.09 Positive >1.09 11 Negative <0.80 Equivocal 0.80 - 1.19 Positive >1.19 IgM levels may peak at 3-6 weeks post infection, then gradually decline. Performed at: [address] [id number] Collections Clerk: Dominguez Gagnon MD, Phone: [phone] Performed at: [address] [id number] Collections Clerk: Clementine Ann MD, Phone: [phone] 12 Performed at: [address] [id number] Collections Clerk: Dominguez Gagnon MD, Phone: [phone] 13 CHEST PAIN 14 Note: Persistent reduction for 3 months or more in an eGFR <60 mL/min/1.73 m2 defines CKD. Patients with eGFR values >/=60 mL/min/1.73 m2 may also have CKD if evidence of persistent proteinuria is present. The original MDRD equation for estimated GFR is not valid for patients less than 18 years of age. Additional information may be found at www.kdoqi.org. 15 0.0 - 0.045 ng/mL: Normal 0.046 - 0.5 ng/mL: Suggestive 0.6 - 1.5 ng/mL: Consistent 16 <=0.49 ug/mL - Low likelihood of DIC, DVT or Pulmonary Embolism >0.49 ug/mL - Additional testing should be done to rule out DIC, DVT, or Pulmonary embolism as clinically indicated. ([facility] has established a 97.89% negative predictive value for thrombotic disease when a cutoff value of 0.5 ug/mL is used.) 17 Z13.1, Z13.220, Z13.0 18 Note: Persistent reduction for 3 months or more in an eGFR <60 mL/min/1.73 m2 defines CKD. Patients with eGFR values >/=60 mL/min/1.73 m2 may also have CKD if evidence of persistent proteinuria is present. The original MDRD equation for estimated GFR is not valid for patients less than 18 years of age. Additional information may be found at www.kdoqi.org. 19 Reference Guidelines*: Desirable: ........... < 200 [...] Source: National Cholesterol Education Program (NCEP) 23 Elevated levels of HbA1c suggest the need for more aggressive treatment of glycemia. The [place] [employer] recommends that a primary goal of therapy should be a HbA1c of <7% and that physicians should re-evaluate the treatment regimen in patients with HbA1c values consistently >8%. 24 R31.9 25 THIS ASSAY IS NOT INTENDED A CANCER SCREENING TEST The concentration of PSA in a given specimen, determined with assays from different manufacturers, can vary due to differences in assay methods and reagent specificity. Values obtained from different assay methods cannot be used interchangeably. Method: Siemens [email or web address] [place] Chemiluminescent immunoassay. 26 R19.4,R14.0 27 Method: Sediplast Modified W[place]gren 28 Performed at: [address] [id number] Collections Clerk: Clementine Ann MD, Phone: [phone] 29 Negative 0 - 19 Weak Positive [...] 6 - 9 Positive >9 Performed at: [address] [id number] Collections Clerk: Clementine Ann MD, Phone: [phone] 33 Concentration Interpretation Follow-Up <16 - 50 ug/g Normal None >50 -120 ug/g Borderline Re-evaluate in 4-6 weeks >120 ug/g Abnormal Repeat as clinically indicated Performed at: [address] [id number] Collections Clerk: Clementine Ann MD, Phone: [phone] Performed at: [address] [id number] Collections Clerk: Jareth Mosquera MD, Phone: [phone] 34 NO ENTERIC PATHOGENS ISOLATED 35 ................................................... [...] CLINICALLY INDICATED, PLEASE CONTACT THE [facility] ([phone]) WITHIN 3 DAYS OF THIS REPORT Testing Performed by: [place] [address] 48 INFCE Result Units: ug Elast./g Severe Pancreatic Insufficiency: <100 Moderate Pancreatic Insufficiency: 100 - 200 Normal: >200 Performed at: [facility] [address] [id number] Collections Clerk: Jareth Mosquera MD, Phone: [phone] 49 DROP OFF SPEC COLLECTED BY NURSE 50 Thyroglobulin Antibody measured by Sanna Elizabeth Methodology 51 Performed at: - [facility] [id number] Collections Clerk: Clementine Ann MD, Phone: [phone] 52 Instrument flagged sample for slide review. Less than 10% Bands seen, no other immature WBC's seen. RBC morphology essentially normal. Platelet estimate=Normal 53 BACK PAIN 54 URINE, CLEAN CATCH 55 DIFFICULTY URINATING 56 URINE, CLEAN CATCH 57 J02.8 58 BETA STREPTOCOCCUS GROUP A 59 PENICILLIN OR AMPICILLIN. 60 ERYTHROMYCIN MAY BE USED IN PENICILLIN ALLERGIC INDIVIDUALS Procedures Date Code Description Status 02/27/2018 10143 Bronchospasm Provocation Evaluation Multi Spirometric Completed Determinati 02/27/2018 56415 Spirometry Completed 02/19/2018 47310 Eye Exam Est Patient Comprehensive Completed 02/12/2018 03633 Cognitive Test By Healthcare Professional Completed 02/04/2018 80221 EGD With Biopsy Completed 08/09/2017 36672 Measurement Post Voiding Residual Urine By Completed Ultrasound,Non-Imaging 06/19/2017 08323 Cystoscopy Completed 06/19/2017 46148 Measurement Post Voiding Residual Urine By Completed Ultrasound,Non-Imaging 06/19/2017 53646 complex uroflowmetry electronic Completed 06/05/2017 87384 complex uroflowmetry electronic Completed 06/05/2017 43865 Measurement Post Voiding Residual Urine By Completed Ultrasound,Non-Imaging 04/17/2017 29923 Brief Emotional/Behav Assessment W/ Scoring Doc Per Completed Standard Inst 01/05/2017 63292 Breath Hydrogen Test Completed 12/05/2016 25 Disability Form Completed 07/18/2016 93260 Hemorrhoidectomy Internal Ligation Other Than Rubber Completed Band Multipl 07/18/2016 18271 Colonoscopy Completed 07/18/2016 85086470 Colonoscopy Completed 07/04/2016 11577 EGD With Biopsy Completed 05/29/2006 04541179 Colonoscopy Completed Encounters Type Date Location Provider Dx Diagnosis Office Visit 03/07/2018 Pulmonology Laurie Serrano PA J43.9 Emphysema, 1:00p unspecified K21.0 Gastro-esophageal reflux disease with esophagitis Office Visit 02/25/2018 12:30p Family Medicine Yaquelin Helton, J01.90 Acute sinusitis, [address] PNP-BC, RN [facility], unspecified Ibclc M62.838 Other muscle spasm Z23 Encounter for immunization Office Visit 02/21/2018 2:00p Pulmonology Braeden Mccurdy MD J44.9 Chronic obstructive pulmonary disease, unspecified J30.89 Other allergic rhinitis F17.211 Nicotine dependence, cigarettes, in remission Office Visit 02/12/2018 3:15p Family Medicine Araceli, R41.840 Attention and West BERNARDA Diane concentration deficit R26.0 Ataxic gait Office Visit 01/22/2018 3:00p GI Gunner Still MD R10.13 Epigastric pain R14.0 Abdominal distension (gaseous) Office Visit 01/04/2018 8:30a Family Medicine [address] Yolanda Lopeza, RN [facility] R05 Cough R06.02 Shortness of breath Office Visit 12/27/2017 4:30p Family Medicine Julian Helton2.9 Polyneuropathy, [address] Yaquelin, unspecified PNP-BC, RN [facility], Ibclc M62.830 Muscle spasm of back Office Visit 12/05/2017 11:45a Family Medicine Yaquelin Helton, F41.9 Anxiety disorder, [address] RD PNP-BC, RN [facility], unspecified Ibclc M54.5 Low back pain Z13.1 Encounter for screening for diabetes mellitus Z13.220 Encounter for screening for lipoid disorders Z13.0 Encntr screen for dis of the bld/bld-form org/immun [facility] Office Visit 10/15/2017 2:00p Family Medicine Yaquelin Helton, A08.[address] PNP-BC, RN [facility], infection, Ibclc unspecified Office Visit 09/27/2017 11:00a Family Medicine Family Nurse R03.[address] blood-pressure reading, w/o diagnosis of htn Office Visit 09/11/2017 2:00p Family Medicine Yaquelin Helton, M54.5 Low back pain [address] PNP-BC, RN [facility], Ibclc F41.9 Anxiety disorder, unspecified R03.0 Elevated blood-pressure reading, w/o diagnosis of htn Office Visit 08/28/2017 1:30p Family Medicine Yaquelin Helton, M54.5 Low back pain [address] PNP-BC, RN [facility], Ibclc Office Visit 08/09/2017 11:45a Urology Clarke Zhang, R35.1 Nocturia M.DSatish N40.1 Benign prostatic hyperplasia with lower urinary tract symp Office Visit 06/20/2017 11:00a Family Medicine Danie G62.9 Polyneuropathy, [address] RD Yaquelin, unspecified PNP-BC, RN [facility], Ibclc M54.5 Low back pain Office Visit 06/19/2017 11:15a Urology Clarke Zhang M.D. R35.1 Nocturia N40.1 Benign prostatic hyperplasia with lower urinary tract symp Office Visit 06/05/2017 2:00p Urology Clarke Zhang, Z12.5 Encounter for M.D. screening for malignant neoplasm of prostate N40.1 Benign prostatic hyperplasia with lower urinary tract symp R33.9 Retention of urine, unspecified Office Visit 05/23/2017 11:45a Family Medicine Yaquelin Hetlon, M25.551 Pain in right [address] PNP-BC, RN [facility], hip Ibclc F41.9 Anxiety disorder, unspecified M54.5 Low back pain G47.00 Insomnia, unspecified R39.12 Poor urinary stream I83.93 Asymptomatic varicose veins of bilateral lower extremities Office Visit 04/30/2017 Family Peña I83.93 Asymptomatic 1:00p Medicine [address] Jenniferleigh, RN [facility] varicose veins of RD bilateral lower extremities Office Visit 04/17/2017 Yaquelin Kent, F41.9 Anxiety disorder, 3:30p Medicine [address] PNP-BC, RN [facility], Ibclc unspecified RD Office Visit 02/28/2017 Yaquelin Kent M54.5 Low back pain 10:15a Medicine [facility] PNP-BC, RN [facility], Ibclc RD M25.512 Pain in left shoulder Office Visit 12/20/2016 3:30p ABEL Flaherty MD K22.70 Spivey's esophagus without dysplasia R14.0 Abdominal distension (gaseous) R19.4 Change in bowel habit R10.9 Unspecified abdominal pain K59.00 Constipation, unspecified Office Visit 11/27/2016 1:45p [facility] Medicine Claudio Peña, M54.[address] RN [facility] pain Office Visit 11/21/2016 10:00a [facility] Yaquelin Helton, M54.[address] PNP-BC, RN [facility], Ibclc pain M62.830 Muscle spasm of back Office Visit 11/16/2016 1:15p Family Medicine Claudio Peña M54.[address] RN [facility] pain G47.09 Other insomnia R53.83 Other fatigue Office Visit 10/11/2016 2:30p [facility] Yaquelin Dumont M62.[address] PNP-BC, RN [facility], of back Ibclc N32.9 Bladder disorder, unspecified F31.89 Other bipolar disorder Office Visit 09/07/2016 9:30a Yaquelin Kent M62.830 Muscle spasm of Medicine [address] PNP-BC, RN [facility], back RD Ibclc Office Visit 08/10/2016 2:45p Surgical Leonid, K64.5 Perianal venous Office efren Hodges M.D. Z12.11 Encounter for screening for malignant neoplasm of colon K62.3 Rectal prolapse Office Visit 07/31/2016 10:30a Surgical Office [place], K64.5 Perianal venous efren Mccormick MD,FACS Office Visit 07/21/2016 9:15a ABEL Flaherty MD K22.70 Spivey's esophagus without dysplasia K29.70 Gastritis, unspecified, without bleeding K59.04 Chronic idiopathic constipation Office Visit 07/06/2016 1:30p Surgical Office Leonid, K62.3 Rectal prolapse Efraín Yusuf M.D. Office Visit 06/26/2016 10:15a Family Medicine Yaquelin Helton, J02.[address] PNP-BC, RN [facility], due to other Ibclc specified organisms M54.5 Low back pain Office Visit 06/16/2016 11:15a ABEL Flaherty MD K59.04 Chronic idiopathic constipation K62.3 Rectal prolapse Office Visit 06/14/2016 1:00p Family Medicine Yaquelin Helton, M54.5 Low back pain [address] PNP-BC, RN [facility], Ibclc K59.00 Constipation, unspecified G24.01 Drug induced subacute dyskinesia Office Visit 05/31/2016 2:00p Family Medicine Yaquelin Helton, K59.00 Constipation, [address] RD PNP-BC, RN [facility], unspecified Ibclc N81.6 Rectocele F31.9 Bipolar disorder, unspecified G24.01 Drug induced subacute dyskinesia Plan of Treatment Future Appointment(s):08/21/2018 10:00 am - Laurie Serrano PA at Pulmonology
[2018-05-02 11:01] VITALS: BP 123/72
--- NOTE | 2018-05-02 11:11 | UC ---
Back Pain HPI - HPI Summary HPI Summary: R knee and lower back pain after fall this AM on slippery side walk. Has chronic lower back pain uses ANS stimulator. - History of Current Complaint Chief Complaint: UCGeneralIllness Stated Complaint: KNEE/TAILBONE INJURY S/P FALL Time Seen by Provider: 05/02/18 10:51 Hx Obtained From: Patient Onset/Duration: Sudden Onset Pain Intensity: 4 Pain Scale Used: 0-10 Numeric Character: Aching, Throbbing Aggravating Factor(s): Movement Alleviating Factor(s): Rest Associated Signs And Symptoms: Negative: Swelling, Redness, Bruising - Allergies/Home Medications Allergies/Adverse Reactions: Allergies Allergy/AdvReac Type Severity Reaction Status Date / Time Penicillins Allergy Nausea And Verified 05/02/18 10:42 Vomiting pregabalin [From Lyrica] Allergy See Comment Verified 05/02/18 10:42 Home Medications: Home Medications Mataxalone 1 tab PO PRN 05/02/18 [History] NIFEdipine CAP* [Procardia CAP*] 10 mg PO TID PRN 05/02/18 [History Confirmed ] PMH/Surg Hx/FS Hx/Imm Hx - Additional Past Medical History Additional PMH: chronic back pain - Surgical History Surgical History: Yes Surgery Procedure, Year, and Place: Back surgeries. Dorsal Column Stimulator, appy, varicocele repair, speed banding for hemorrhoids - Family History Known Family History: Negative: Renal Disease - Social History Alcohol Use: None Substance Use Type: None Smoking Status (MU): Former Smoker Amount Used/How Often: 1 ppd Length of Time of Smoking/Using Tobacco: 10 -15 years Have You Smoked in the Last Year: No When Did the Patient Quit Smoking/Using Tobacco: Quit 2002 - Immunization History Most Recent Influenza Vaccination: yes Review of Systems All Other Systems Reviewed And Are Negative: Yes Constitutional: Positive: Negative Skin: Negative: Rash, Bruising Musculoskeletal: Positive: Arthralgia - R knee, lower back pain. Negative: Decreased ROM, Edema Neurological: Negative: Weakness, Paresthesia, Numbness Physical Exam Triage Information Reviewed: Yes Appearance: Well-Appearing Vital Signs: Initial Vital Signs Temp 97.6 F 05/02/18 10:50 Pulse 64 05/02/18 10:50 Resp 16 05/02/18 10:50 BP 123/72 05/02/18 10:50 Pulse Ox 100 05/02/18 10:50 Vital Signs Reviewed: Yes Musculoskeletal: Positive: Strength Intact - R KNEE, ROM Intact - R KNEE, No Edema - R KNEE, Other: - able to ambulate. NO NEW TENDERNESS AT SACRAL AREA. Skin: Negative: Rashes Back Pain Course/Dx - Course Course Of Treatment: Fall today ON SIDE WALK W/ sacral pain and R knee pain. exam was essentially unremarkable and xray did not show any fractures. He is taking enough pain meds from home. Advsied to return if not improving. And consider repeat imaging if pain in both areas persist. Vitals good. - Differential Dx/Diagnosis Differential Diagnosis/HQI/PQRI: Fracture, Strain, Sprain, Other - fall Provider Diagnosis: Right knee pain, Coccydynia Discharge - Sign-Out/Discharge Documenting (check all that apply): Patient Departure All imaging exams completed and their final reports reviewed: Yes - Discharge Plan Condition: Good Disposition: HOME Patient Education Materials: Knee Pain (ED) Referrals: Yaquelin Helton NP [Primary Care Provider] - Additional Instructions: If your pain persists please follow up with your regular doctor for further imaging and re-evaluation. - Billing Disposition and Condition Condition: GOOD Disposition: Home
== END 2018-05-02 12:20 | disposition home or self-care (01) ==
LOC: UCCORT 10:11
DX: M25.561 Pain in right knee (principal); M53.3 Sacrococcygeal disorders, not elsewhere classified; W01.0XXA Fall on same level from slipping, tripping and stumbling without subsequent striking against object, initial encounter; Y92.480 Sidewalk as the place of occurrence of the external cause; Z88.0 Allergy status to penicillin; Z88.8 Allergy status to other drugs, medicaments and biological substances; Z87.891 Personal history of nicotine dependence
CPT/HCPCS: 72220; 99211; G0463

== ENCOUNTER 2018-06-26 20:40 | Inpatient (IN) | payer MEDICARE, OTHER ==
--- OUTSIDE RECORDS SUMMARY | 2018-06-26 21:26 | XMS REPORT | Continuity of Care Document ---
:1970 External Reference #:[id number] Author Name Yaquelin Helton PNP-BC, LOOM FIXER, Ibclc Address [address] [place] [address] Care Team Providers Name Role Phone Yaquelin Helton, SHAINA, LOOM FIXER, Ibshirlene Care Team Information Bus Inspector Unavailable Yaquelin Helton PNP-BC, RENE, Ibclc Primary Care Physician Unavailable Payers Date Identification Numbers Payment Provider Subscriber Effective: 2018 Policy Number: [id number] [employer] Danilo Nicole PayID: [id number] [address] [place] [address] Expires: 2018 Policy Number: [id number] [employer] Danilo Nicole PayID: [id number] [address] [place] [address] Expires: 2018 Policy Number: [id number] Excell Fatemeh Nicole PayID: [id number] [address] [address] [place] [address] Advance Directives Description No Information Available Problems [...] with esophagitis Family History Date Family Member(s) Observation Comments General Colon Cancer General Diabetes Father Pacemaker Father Diabetes Father Father was in [employer] Mother No Current Problems Paternal Grandfather due to Unknown Causes () Paternal Grandmother due to Diabetes () Maternal Grandfather due to Alzheimer's Disease () Maternal Grandmother Unknown Social History Type Date Description Comments Sex Unknown Marital Status Lives With Alone Lives With Occupation Disabled Used to [place] Work Status Disabled Tobacco Use Start: Unknown End: Quit Unknown Smoking Status Reviewed: 05/28/18 Quit ETOH Use Denies alcohol use Tobacco Use Start: Unknown End: Patient is a former smoker Recreational Drug Use Denies Drug Use Exercise Type/Frequency Does not exercise Allergies, Adverse Reactions, Alerts Date Description Reaction Status Severity Comments 05/31/2016 Lyrica Active 05/31/2016 Penicillin Active Medications Medication Date Status Form Strength Qnty SIG Indications Ordering Provider Nifedipine Active Capsules 10mg 30caps 1 tab for Emily Helton severe Yaquelin, chest pain PNP-BC, LOOM FIXER, Ibclc Zyrtec Active Tablets 10mg 30tabs Takes J43.9 Papo Mccurdy 018 daily, OTC MD Braeden Meloxicam Active Tablets 7.5mg 60tabs take one Garcia Helton tablet by Yaquelin mouth twice PNP-BC, a day for 2 LOOM FIXER, Ibclc weeks then as needed Linzess Active Capsules 145mcg 90caps 1 cap by R14.0 Cheko, 018 mouth every MD Gunner night, hold for unformed bm Paroxetine Active Tablets 10mg 90tabs take one FOUZIA Helton 018 tablet by Yaquelin, mouth every PNP-BC, day with LOOM FIXER, Ibclc 40mg tablet Paroxetine Active Tablets 40mg 90tabs 1 by mouth F41.9 Danie, HCL 018 every day Yaquelin, with 10mg PNP-BC, tablet LOOM FIXER, Ibclc Clonazepam Active Tablets 0.5mg 60tabs take 1 to 2 G47.00 Danie, 018 at bedtime Yaquelin, Reference PNP-BC, #: [id number] LOOM FIXER, Ibclc F41.9 Jobst Active 04/30/2017 Active Misc 2Pair 2 pairs for I83.93 Clune, 15-20MMHG/Knee moderate (RT Jenniferleigh, High/Closed leg) and LOOM FIXER Toe/Medium severe (lt leg) varicosities Oxycodone-Acetam Active Tablets 5 30tabs 1 tablet Nichole Woodard inophen - every 6 hours 3 as needed 2 reference #: 5 [id number] m g Tamsulosin HCL Active Capsules 0 60caps take 2 Yaquelin Helton, . capsules a PNP-BC, LOOM FIXER, 4 day. Ibclc m g Esomeprazole Active Capsules 2 Take [address] 0 twice a day. m g Lidocaine Active Solution 2 600ml gaggle and Yaquelin Helton, Viscous % spit 5ml PNP-BC, LOOM FIXER, every 4-6 Ibclc hours as needed Metaxalone Active Tablets 8 Take One Unknown 0 Tablet By 0 Mouth Three m Times A Day g For Muscle Spasms Cefdinir 02/25/2018 Hx Capsules 3 20caps 1 by mouth J01.90 Yaquelin Helton, - 0 twice a day PNP-BC, LOOM FIXER, 03/07/2018 0 Ibclc m g Nifedipine 02/14/2018 Hx Capsules 1 90caps 1 tablet po Cheko, - Unknown 0 tid MD herrera Martino g Ventolin HFA 01/04/2018 Hx Aerosol 1 18gm Inhale 2 R05 Johanna Lopez, - Unknown 0 puffs by LOOM FIXER 8 mouth every 3 ( hours as 9 needed for 0 shortness of B breath a s e ) m c g / A c t Benzonatate 01/04/2018 Hx Capsules 1 30caps take 1 R05 Johanna Lopez, - Unknown 0 capsule by LOOM FIXER 0 mouth every 8 m hours for g coughing as needed Skelaxin 12/27/2017 Hx Tablets 8 60tabs 1 by mouth Yaquelin Helton, - 0 three times a PNP-BC, LOOM FIXER, 02/19/2018 0 day for Ibclc m muscle [...] , - . mouth twice a PNP-BC, LOOM FIXER, 09/11/2017 5 day as for 2 Ibclc m weeks and g then as needed Multivitamin 04/17/2017 Hx Tablets 30tabs 1 by mouth Yaquelin Helton, Adult - every day PNP-BC, LOOM FIXER, 09/11/2017 Ibclc Vitamin C 04/17/2017 Hx Chewtabs 5 1 by mouth Yaquelin Helton, - 0 every day PNP-BC, LOOM FIXER, 09/11/2017 0 Ibclc m g Paroxetine HCL 04/17/2017 Hx Tablets 2 30tabs 1 by mouth F41.9 Yaquelin Helton, - 0 every day PNP-BC, LOOM FIXER, 05/23/2017 m Ibclc g Fexofenadine HCL 01/08/2017 Hx Tablets 1 30tabs 1 by mouth at Yaquelin Helton, - 8 night PNP-BC, LOOM FIXER, 09/11/2017 0 Ibclc m g Fluticasone 01/08/2017 Hx Suspensio 5 16gm 2 sprays each Yaquelin Helton , Propionate - n 0 nare once a PNP-BC, LOOM FIXER, 09/11/2017 m day Ibclc c g / A c t Ibuprofen 01/02/2017 Hx Tablets 6 240tab 1 tab three Yaquelin Helton, - 0 s times a day PNP-BC, LOOM FIXER, 02/28/2017 0 as needed Ibclc m g Esomeprazole 12/20/2016 Hx Capsules 2 90caps 1 cap by K22.70 Victor Manuel Flaherty MD Magnesium - DR 0 mouth bid - 02/18/2018 m increased by g ER Vicodin ES 11/16/2016 Hx Tablets 7 40tabs one tablet M54.5 Clune, - . every 6 hours Claudio, 01/02/2017 5 as needed for LOOM FIXER - moderate to 3 severe pain 0 Reference #: 0 [id number] m g Ziprasidone HCL 10/11/2016 Hx Capsules 2 30caps 1 tab po qhs Yaquelin Helton, - Unknown 0 PNP-BC, LOOM FIXER, m Ibclc g Metaxalone 10/11/2016 Hx Tablets 8 60tabs 1 tab by M62.830 Yaquelin Helton, - 0 mouth three PNP-BC, LOOM FIXER, 02/28/2017 0 times a day Ibclc m as needed for g pain Cyclobenzaprine 09/07/2016 Hx Tablets 1 45tabs 1 by mouth M62.830 Yaquelin Helton, HCL - 0 three times a PNP-BC, LOOM FIXER, 10/11/2016 m day as needed Ibclc g for back pain Tylenol With 08/10/2016 Hx Tablets 3 20tabs 1 by mouth Jace Wallaec, Codeine #3 - 0 q6hr as MYRNA [...] 2 6tabs take 2 tabs Yaquelin Helton, - Unknown 5 by mouth on PNP-BC, LOOM FIXER, 0 day 1 then 1 Ibclc m tab by mouth g every days 2-5 Vitamin E-400 06/26/2016 Hx Capsules 4 3 by mouth Yaquelin Helton, - 0 every day PNP-BC, LOOM FIXER, 10/11/2016 0 Ibclc U n i t Oxycodone-Acetam 06/26/2016 Hx Tablets 5 30tabs 1-2 tabs by M54.5 Madison, Jace, inophen - - mouth every 6 MD,FACS 01/02/2017 3 hours as 2 needed for 5 yosef m g Golytely 06/16/2016 Hx Solution 2 4000ml drink half K59.04 Victor Manuel Flaherty MD - Unknown Rec 3 the evening 6 before and g half the m morning of the procedure (1 cup every 10') Dulcolax 06/16/2016 Hx Tablets 5 4tabs 4 tablets K59.04 Victor Manuel Flaherty MD - Unknown DR herrera taken a 8pm g the day before [...] Helton, - m day as needed PNP-BC, LOOM FIXER, 01/02/2017 g Reference #: Ibclc [id number] Vitamin D3 High Hx Capsules 1 1 by mouth Unknown Potency - 0 every day 10/11/2016 0 0 U n i t Benadryl Allergy Hx Capsules 2 30caps using otc Yaquelin Helton, - 5 prn PNP-BC, LOOM FIXER, 03/07/2018 m Ibclc g Ibuprofen Hx Tablets 6 1 by mouth Unknown - 0 every 6 hours 10/11/2016 0 as needed m pain use as g first line pain control Flomax Hx Capsules 0 1 tab by Unknown - Unknown . mouth every 4 day 30 m minutes after g a meal Oxycodone-Acetam Hx Tablets 5 60tabs take one to Yaquelin Helton inophen - - two tablets RENE MERRITT, 09/11/2017 3 by mouth Ibclc 2 every 6 hours 5 as needed for m pain g reference #: [id number] Tamsulosin HCL Hx Capsules 0 90caps 1 tab daily Ryder Zhang M.D. 06/20/2017 4 m g Melatonin Hx Capsules 1 1 by mouth Unknown - 0 every at 02/12/2018 m bedtime g Cyclobenzaprine Hx Tablets 1 90tabs 1 tab by Yaquelin Helton HCL - 0 mouth three PNPZACKARY CAALP, 01/04/2018 m times a day Ibclc g [...] CPT Code Status Date Vaccine Lot # [id number] Given 02/25/2018 Pneumovax Injection [id number] Given 01/07/2018 Influenza Virus Vaccine, Quadrivalent, 36 Mos+, [id number] Given 01/25/2017 Influenza Virus Vaccine Quadrivalent Iiv4 Split [id number] Preser Free Id Vital Signs Date Vital Result Comment 05/28/2018 1:56pm BP Systolic 126 mmHg BP Diastolic 80 mmHg Body Temperature 98.2 F Heart Rate 72 /min Respiratory Rate 20 /min Height 70 inches 5'10" Weight 235.00 lb BMI (Body Mass Index) 33.7 kg/m2 BSA (Body Surface Area) 2.24 m2 Ogema body weight in kilograms 75 kg O2 % BldC Oximetry 98 % 05/02/2018 2:39pm BP Systolic Sitting Right Arm 110 mmHg BP Diastolic Sitting Right Arm 62 mmHg Body Temperature 97.8 F Heart Rate 76 /min Weight 239.00 lb O2 % BldC Oximetry 97 % 04/10/2018 10:39am BP Systolic Sitting Right Arm 122 mmHg BP Diastolic Sitting Right Arm 80 mmHg Body Temperature 97.5 F Heart Rate 63 /min Respiratory Rate 12 /min Height 70 inches 5'10" Weight 240.00 lb BMI (Body Mass Index) 34.4 kg/m2 BSA (Body Surface Area) 2.26 m2 Ogema body weight in kilograms 75 kg O2 % BldC Oximetry 98 % 03/07/2018 1:01pm BP Systolic Sitting Left Arm 132 mmHg BP Diastolic Sitting Left Arm 70 mmHg Body Temperature 97.7 F Heart Rate 70 /min Respiratory Rate 18 /min Height 70 inches 5'10" Weight 240.00 lb BMI (Body Mass Index) 34.4 kg/m2 BSA (Body Surface Area) 2.26 m2 Ogema body weight in kilograms 75 kg O2 % BldC Oximetry 97 % 02/25/2018 12:26pm BP Systolic Sitting Left Arm 116 mmHg BP Diastolic Sitting Left Arm 78 mmHg Body Temperature 98.2 F Heart Rate 74 /min Respiratory Rate 20 /min Height 70 inches 5'10" Weight 234.00 lb BMI (Body Mass Index) 33.6 kg/m2 BSA (Body Surface Area) 2.23 m2 Ogema body weight in kilograms 75 kg O2 % BldC Oximetry 95 % Room air 02/21/2018 2:02pm BP Systolic Sitting Right Arm 126 mmHg BP Diastolic Sitting Right Arm 78 mmHg Heart Rate 79 /min Respiratory Rate 16 /min Height 70 inches 5'10" Weight 232.00 lb BMI (Body Mass Index) 33.3 kg/m2 BSA (Body Surface Area) 2.22 m2 Ogema body weight in kilograms 75 kg O2 [...] kg/m2 BSA (Body Surface Area) 2.22 m2 Ogema body weight in kilograms 75 kg 01/04/2018 8:28am BP Systolic Sitting Left Arm 112 mmHg BP Diastolic Sitting Left Arm 72 mmHg Heart Rate 78 /min Respiratory Rate 20 /min Height 70 inches 5'10" Weight 231.00 lb BMI (Body Mass Index) 33.1 kg/m2 BSA (Body Surface Area) 2.22 m2 Ogema body weight in kilograms 75 kg O2 % BldC Oximetry 95 % 12/27/2017 4:22pm BP Systolic Sitting Left Arm 142 mmHg BP Diastolic Sitting Left Arm 92 mmHg Heart Rate 88 /min Height 70 inches 5'10" Weight 232.38 lb BMI (Body Mass Index) 33.3 kg/m2 BSA (Body Surface Area) 2.22 m2 Ogema body weight in kilograms 75 kg O2 [...] kg/m2 BSA (Body Surface Area) 2.18 m2 Ogema body weight in kilograms 75 kg 08/28/2017 1:27pm BP Systolic 122 mmHg BP Diastolic 78 mmHg Heart Rate 72 /min Height 70 inches 5'10" Weight 222.00 lb BMI (Body Mass Index) 31.9 kg/m2 BSA (Body Surface Area) 2.18 m2 Ogema body weight in kilograms 75 kg O2 % BldC Oximetry 97 % 08/09/2017 11:43am BP Systolic 117 mmHg BP Diastolic 82 mmHg Body Temperature 97.3 F Heart Rate 72 /min Respiratory Rate 18 /min Height 70 inches 5'10" Weight 216.00 lb BMI (Body Mass Index) 31.0 kg/m2 BSA (Body Surface Area) 2.16 m2 Ogema body weight in kilograms 75 kg O2 % BldC Oximetry 97 % Pain Level 0 06/20/2017 10:56am BP Systolic 112 mmHg BP Diastolic 72 mmHg Body Temperature 97.0 F Heart Rate 84 /min Respiratory Rate 17 /min Height 70 inches 5'10" Weight 212.00 lb BMI (Body Mass Index) 30.4 kg/m2 BSA (Body Surface Area) 2.14 m2 Ogema body weight in kilograms 75 kg O2 % BldC Oximetry 98 % 06/19/2017 11:05am BP Systolic 129 mmHg BP Diastolic 91 mmHg Body Temperature 97.7 F Heart Rate 73 /min Respiratory Rate 17 /min Height 70 inches 5'10" Weight 212.12 lb BMI (Body Mass Index) 30.4 kg/m2 BSA (Body Surface Area) 2.14 m2 Ogema body weight in kilograms 75 kg O2 % BldC Oximetry 99 % Pain Level 3 Low back 06/05/2017 1:52pm BP Systolic 119 mmHg BP Diastolic 69 mmHg Body Temperature 98.1 F Heart Rate 72 /min Respiratory Rate 14 /min Height 70 inches 5'10" Weight 209.12 lb BMI (Body Mass Index) 30.0 kg/m2 BSA (Body Surface Area) 2.13 m2 Ogema body weight in kilograms 75 kg Pain Level 3 chronic back pain per pt 05/23/2017 12:15pm BP Systolic 122 mmHg BP Diastolic 80 mmHg Body Temperature 97.9 F Heart Rate 76 /min Respiratory Rate 17 /min Height 70 inches 5'10" Weight 206.50 lb BMI (Body Mass Index) 29.6 kg/m2 BSA (Body Surface Area) 2.12 m2 Ogema body weight in kilograms 75 kg O2 % BldC Oximetry 97 % 04/30/2017 1:02pm BP Systolic Sitting Left Arm 118 mmHg BP Diastolic Sitting Left Arm 72 mmHg Heart Rate 80 /min Respiratory Rate 18 /min Height 70 inches 5'10" Weight 205.25 lb BMI (Body Mass Index) 29.4 kg/m2 BSA (Body Surface Area) 2.11 m2 Ogema body weight in kilograms 75 kg 04/17/2017 3:23pm BP Systolic 112 mmHg BP Diastolic 76 mmHg Body Temperature 96.7 F Heart Rate 76 /min Height 70 inches 5'10" Weight 205.00 lb BMI (Body Mass Index) 29.4 kg/m2 BSA (Body Surface Area) 2.11 m2 Ogema body weight in kilograms 75 kg O2 % BldC Oximetry 97 % 02/28/2017 10:03am BP Systolic 112 mmHg BP Diastolic 64 mmHg Heart Rate 78 /min Height 70 inches 5'10" Weight 192.00 lb BMI (Body Mass Index) 27.5 kg/m2 BSA (Body Surface Area) 2.05 m2 Ogema body weight in kilograms 75 kg 12/20/2016 3:17pm BP Systolic Sitting Left Arm 116 mmHg BP Diastolic Sitting Left Arm 70 mmHg Heart Rate 73 /min Respiratory Rate 16 /min Height 70 inches 5'10" Weight 182.00 lb BMI (Body Mass Index) 26.1 kg/m2 BSA (Body Surface Area) 2.01 m2 Ogema body weight in kilograms 75 kg 11/27/2016 1:48pm BP Systolic 138 mmHg BP Diastolic 88 mmHg Height 70 inches 5'10" Weight 185.00 lb BMI (Body Mass Index) 26.5 kg/m2 BSA (Body Surface Area) 2.02 m2 Ogema body weight in kilograms 75 kg 11/21/2016 9:58am BP Systolic 108 mmHg BP Diastolic 62 mmHg Height 70 inches 5'10" Ogema body weight in kilograms 75 kg 11/16/2016 1:11pm BP Systolic 116 mmHg BP Diastolic 78 mmHg Heart Rate 74 /min Height 70 inches 5'10" Weight 181.00 lb BMI (Body Mass Index) 26.0 kg/m2 BSA (Body Surface Area) 2.00 m2 Ogema body weight in kilograms 75 kg 10/11/2016 2:23pm BP Systolic 154 mmHg BP Diastolic 76 mmHg Heart Rate 79 /min Height 70 inches 5'10" Weight 179.00 lb BMI (Body Mass Index) 25.7 kg/m2 BSA (Body Surface Area) 1.99 m2 Ogema body weight in kilograms 75 kg 09/07/2016 9:17am BP Systolic 132 mmHg BP Diastolic 76 mmHg Body Temperature 98.0 F Heart Rate 60 /min Height 70 inches 5'10" Weight 177.00 lb BMI (Body Mass Index) 25.4 kg/m2 BSA (Body Surface Area) 1.98 m2 Ogema body weight in kilograms 75 kg O2 [...] kg/m2 BSA (Body Surface Area) 1.98 m2 Ogema body weight in kilograms 75 kg 06/16/2016 [...] kg/m2 BSA (Body Surface Area) 1.99 m2 Ogema body weight in kilograms 75 kg Results Test Date Facility Test Result H/L Range Note Laboratory test 02/20/2018 [facility] [address] Sedimentation Rate 7 mm/hr N 0-15 1, 2 finding [address] [place] [address] [phone] C-Reactive Protein,Quant < 2.9 mg/L <3.0 Laboratory test 02/14/2018 [facility] Troponin-I < 0.015 3, [address] ng/[place] [address] [phone] CBC W/Automated 02/13/2018 [facility] White Blood 6.6 K/uL N 3.4-[address] Count 0.5 [place] [address] [phone] Red Blood Count 4.52 M/uL N 4.20-5.80 [...] 33.0-73.0 Lymph % 32.7 % N 20.0-42.0 Starr % 9.0 % N 0.0-10.0 Eo% 8.9 % High 0.0-6.6 Bas% 0.8 % N 0.0-1.1 Neut# 3.22 K/uL N 1.8-7.0 Lymph # 2.17 K/uL N 1.0-4.0 Starr # 0.60 K/uL N 0.0-0.8 Eos # 0.59 K/uL High 0.0-0.5 Baso # 0.05 K/uL N 0.0-0.1 CBC W/Automated Diff 02/12/2018 [facility] [address] White Blood 5.9 K/uL N 3.4-10.[address] [place] [address] [phone] Red Blood Count 4.45 M/uL N 4.20-5.80 [...] 33.0-73.0 Lymph % 26.9 % N 20.0-42.0 Starr % 8.0 % N 0.0-10.0 Eo% 9.7 % High 0.0-6.6 Bas% 0.7 % N 0.0-1.1 Neut# 3.23 K/uL N 1.8-7.0 Lymph # 1.59 K/uL N 1.0-4.0 Starr # 0.47 K/uL N 0.0-0.8 Eos # 0.57 K/uL High 0.0-0.5 Baso # 0.04 K/uL N 0.0-0.1 Comprehensive Metabolic 02/12/[address] [facility] [address] Glucose 99 mg/dL N 74 -[address] [place] [address] [phone] BUN 12 mg/dL N 7-18 Creatinine 0.9 [...] Reflex add FT4? Y Heavy Metals 02/12/[address] [facility] [address] Lead,Blood None Detected 0-4 7 Profile I,Blood [address] g/[place] [address] [phone] Arsenic,Blood 4 ug/L 2-23 8 Mercury (B) None Detected ug/L 0.0-14.9 9 TSH Reflex FT4 02/12/[address] [facility] [address] Thyroid Stim 1.04 uIU/mL N 0.30-4.20 And/Or FT3 [address] [place] [address] [phone] Reflex add FT3? Y Reflex add FT4? Y Lyme AB/Western 02/12/[address] [facility] [address] Lyme Total < 0.91 0.00-0.90 10 Blot Reflex [address] AB/[place] [address] [phone] Lyme Disease Antibody,QT,Igm < 0.80 index 0.00-0.79 11 Laboratory test 02/12/[address] [facility] [address] Treponema Negative Negative [address] [place] [address] [place] [phone] Comprehensive 01/21/2018 [facility] Glucose 91 mg/dL N 74-106 13 Metabolic Panel [address] [place] [address] [phone] BUN 12 mg/dL N 7-18 Creatinine 0.9 [...] U/L N 45-117 Laboratory test finding 01/21/2018 [facility] Lipase 117 U/L N 56-[address] [place] [address] [phone] Troponin-I < 0.015 ng/mL 15 CBC W/Automated Diff 01/21/2018 [facility] White Blood 7.0 K/uL N 3.4-10.[address] [place] [address] [phone] Red Blood Count 4.49 M/uL N 4.20-5.80 [...] 33.0-73.0 Lymph % 31.1 % N 20.0-42.0 Starr % 10.6 % High 0.0-10.0 Eo% 5.6 % N 0.0-6.6 Bas% 0.6 % N 0.0-1.1 Neut# 3.65 K/uL N 1.8-7.0 Lymph # 2.18 K/uL N 1.0-4.0 Starr # 0.74 K/uL N 0.0-0.8 Eos # 0.39 K/uL N 0.0-0.5 Baso # 0.04 K/uL N 0.0-0.1 Laboratory test 01/21/2018 [facility] Slide Review DIFF ORDERED finding [address] [place] [address] [phone] Laboratory test 01/21/2018 [facility] D-Dimer, < 0.27 ug/mL [address] Quantitative [place], [place] [address] [phone] Differential-WBC 01/21/2018 [facility] Total Cells 100 #CELLS Confirm [address] Counted [place], [place] [id number] [phone] Band% 1 % N 0-8 Neutrophils% 51 % N 33-73 Lymph% 32 % N 20-42 Atypical Lymph% 2 % N 0-7 Monocyte% 8 % N 0-10 Eosinophil% 6 % High 0-5 Platelet Estimate NORMAL Anisocytosis 0-1+ Toxic Granulation 0-1+ Comprehensive 12/05/2017 [facility] Glucose 133 mg/dL High 74-106 17 Metabolic Panel [address] [place], [place] [id number] [phone] BUN 12 mg/dL N 7-18 Creatinine 1.0 [...] U/L N 45-117 CBC W/Automated Diff 12/05/2017 [facility] White Blood 7.2 K/uL N 3.4-10.[address] [place] [address] [phone] Red Blood Count 4.68 M/uL N 4.20-5.80 [...] 33.0-73.0 Lymph % 27.0 % N 20.0-42.0 Starr % 5.5 % N 0.0-10.0 Eo% 9.2 % High 0.0-6.6 Bas% 0.6 % N 0.0-1.1 Neut# 4.13 K/uL N 1.8-7.0 Lymph # 1.93 K/uL N 1.0-4.0 Starr # 0.39 K/uL N 0.0-0.8 Eos # 0.66 K/uL High 0.0-0.5 Baso # 0.04 K/uL N 0.0-0.1 LDL Cholesterol Profile 12/05/2017 [facility] Cholesterol 159 mg/dL <200 19 [address] [place] [address] [phone] Triglycerides 241 mg/dL High <150 20 HDL Cholesterol 34 mg/dL Low >40 21 LDL-Cholesterol 77 mg/dL < 100 22 Glycohemoglobin A1c 12/05/2017 [facility] Glycohemoglobin 5.2 % N 4.2-6.3 23 [address] [facility] (A1c) [place] [address] [phone] eAG 103 mg/dL Ua RFX Micro & Culture 06/05/2017 [facility] Urine Color YELLOW Yellow 24 II [address] [place] [address] [phone] Urine Clarity CLEAR Clear Urine Glucose - Dipstick NEGATIVE mg/dL Negative Urine Bilirubin - Dipstick NEGATIVE Negative Urine Ketone NEGATIVE mg/dL Negative Urine Specific [place] <=1.005 Low 1.010-1.030 Urine Blood NEGATIVE Negative Urine PH 6.5 N 6.5-7.5 Urine Protein - Dipstick NEGATIVE mg/dL Negative Urine Urobilinogen - Dipstick 0.2 E.U./dL N 0.2-1.0 Urine Nitrite - Dipstick NEGATIVE Negative Urine Leuk Esterase NEGATIVE Negative Laboratory 06/05/2017 [facility] Prostate Specific 0.76 < 4.0 25 test finding [address] Antigen ng/[place] [address] [phone] Laboratory 12/21/2016 [facility] Sedimentation Rate 2 mm/hr N 0-15 26, 27 test finding [address] [place] [address] [phone] Celiac Disease 12/21/2016 [facility] Immunoglobulin A 265 mg/dL 90-386 28 Comp AB [address] [place] [address] [phone] Antigliadin Abs, IgG 2 units 0-19 29 Antigliadin Abs, IgA 11 units 0-19 30 Endomysial IgA Antibody Negative Negative t-Transglutaminase IgA <2 U/mL 0-3 31 t-Transglutaminase IgG <2 U/mL 0-5 32 Laboratory test 12/21/2016 [facility] Calprotectin, < 16 ug/g 0-[address] [place] [address] [phone] Stool Culture 12/21/2016 [facility] Stool Culture NO ENTERIC [address] PATHO <[place] [address] NOTE> [phone] . ................ <SEE NOTE> N 35 Note: [...] <SEE NOTE> 42 Ova & Parasite 12/21/2016 [facility] Cryptosporidium NEGATIVE FOR 43 Antigen Screen [address] Specific Ag CRY <[place] [address] NOTE> [phone] Giardia Specific Antigen NEGATIVE FOR MAYRA <SEE NOTE> 44 Fecal Fat, Qualitative 12/21/2016 [facility] Fats, Neutral Normal . [address] [place] [address] [phone] Fats, Total Normal . 46 Laboratory test 12/21/2016 [facility] C. Difficile C-DIFF TOXIN [address] Toxin B By PCR B: <[place] [address] NOTE> [phone] Vitamin B12 And 12/21/2016 [facility] Vitamin B12 335 pg/mL N 193-[address] [place] [address] [phone] Folic Acid 18.5 ng/mL High 3.1-17.5 Laboratory 12/21/2016 [facility] Pancreatic > 500.0 >200 48 test finding [address] Elastase (Pe-1) ug/[place] [address] [phone] Thyroid 11/16/2016 [facility] [address] Thyroglobulin 2.9 High 0.0-0.9 49, Antibodies [address] Antibody IU/mL 50 [place] [address] [phone] Thyroid Peroxidase Antibodies 16 IU/mL 0-34 51 Laboratory test 11/16/2016 [facility] [address] Thyroid Stim 3.03 uIU/mL N 0.30-4.[address] [place] [address] [phone] CBS W/Automated 11/16/[address] [facility] [address] White Blood 5.2 K/uL N 3.4- 10.[address] [place] [address] [phone] Red Blood Count 4.91 M/uL N 4.20-5.80 [...] 33.0-73.0 Lymph % 34.0 % N 20.0-42.0 Starr % 7.2 % N 0.0-10.0 Eo% 13.6 % High 0.0-6.6 Bas% 1.2 % High 0.0-1.1 Neut# 2.27 K/uL N 1.8-7.0 Lymph # 1.75 K/uL N 1.0-4.0 Starr # 0.37 K/uL N 0.0-0.8 Eos # 0.70 K/uL High 0.0-0.5 Baso # 0.06 K/uL N 0.0-0.1 Laboratory test 11/16/2016 [facility] [address] Slide Review (SEE NOTE) 52 finding [address] [place], [place] [address] [phone] Ua RFX Micro & 11/15/2016 [facility] Urine Color YELLOW Yellow 53 Culture II [address] [place] [address] [phone] Urine Clarity CLEAR Clear Urine Glucose - Dipstick NEGATIVE mg/dL Negative Urine Bilirubin - Dipstick NEGATIVE Negative Urine Ketone NEGATIVE mg/dL Negative Urine Specific [place] 1.010 N 1.010-1.030 Urine Blood NEGATIVE Negative Urine PH 5.5 Low 6.5-7.5 Urine Protein - Dipstick NEGATIVE mg/dL Negative Urine Urobilinogen - Dipstick 0.2 E.U./dL N 0.2-1.0 Urine Nitrite - Dipstick NEGATIVE Negative Urine Leuk Esterase NEGATIVE Negative Source: URINE, CLEAN CAT <SEE NOTE> 54 Ua RFX Micro & Culture 07/21/2016 [facility] Urine Color YELLOW Yellow 55 [address] [place] [address] [phone] Urine Clarity CLEAR Clear Urine Glucose - Dipstick NEGATIVE mg/dL Negative Urine Bilirubin - Dipstick NEGATIVE Negative Urine Ketone TRACE mg/dL High Negative Urine Specific [place] 1.015 N 1.010-1.030 Urine Blood NEGATIVE Negative Urine PH 6.5 N 6.5-7.5 Urine Protein - Dipstick NEGATIVE mg/dL Negative Urine Urobilinogen - Dipstick 0.2 E.U./dL N 0.2-1.0 Urine Nitrite - Dipstick NEGATIVE Negative Urine Leuk Esterase NEGATIVE Negative Source: URINE, CLEAN CAT <SEE NOTE> 56 Throat 06/26/2016 [facility] Throat BETA Abnormal 57, [address] [place] [address] Screen <SEE NOTE> [phone] Quantity MODERATE N Recommended Therapy: PENICILLIN OR [...] developed and its performance characteristics determined by [employer]. It has not been cleared or approved by the Food and Drug Administration. 8 Detection Limit=1 9 Environmental Exposure: <15.0 Occupational Exposure: KARLO - Inorganic Mercury: 15.0 Detection Limit=1.0 10 Negative <0.91 Equivocal 0.91 - 1.09 Positive >1.09 11 Negative <0.80 Equivocal 0.80 - 1.19 Positive >1.19 IgM levels may peak at 3-6 weeks post infection, then gradually decline. Performed at: - [facility] [id number] Geophysicist: Dominguez Gagnon MD, Phone: [phone] Performed at: RN - [facility] [address] [id number] Geophysicist: Clementine Ann MD, Phone: [phone] 12 Performed at: BN - [facility] [address] [id number] Geophysicist: Dominguez Gagnon MD, Phone: [phone] 13 CHEST PAIN 14 Note: Persistent reduction [...] or Pulmonary embolism as clinically indicated. ([facility] has established a 97.89% negative predictive [...] for more aggressive treatment of glycemia. The [place] [employer] recommends that a primary goal [...] methods cannot be used interchangeably. Method: Siemens [employer] Spraggs Chemiluminescent immunoassay. 26 R19.4,R14.0 27 Method: Sediplast Modified Westergren 28 Performed at: [facility] [id number] Geophysicist: Clementine Ann MD, Phone: [phone] 29 Negative 0 - 19 Weak Positive [...] 6 - 9 Positive >9 Performed at: [facility] [id number] Geophysicist: Clementine Ann MD, Phone: [phone] 33 Concentration Interpretation Follow-Up <16 - 50 ug/g Normal None >50 -120 ug/g Borderline Re-evaluate in 4-6 weeks >120 ug/g Abnormal Repeat as clinically indicated Performed at: [address] [id number] Geophysicist: Clementine Ann MD, Phone: [phone] Performed at: [address] [id number] Geophysicist: Jareth Mosquera MD, Phone: [phone] 34 NO ENTERIC PATHOGENS ISOLATED 35 ................................................... [...] CLINICALLY INDICATED, PLEASE CONTACT THE [facility] ([phone]) WITHIN 3 DAYS OF THIS REPORT Testing Performed by: [place] [address] 48 INFCE Result Units: ug Elast./g Severe Pancreatic Insufficiency: <100 Moderate Pancreatic Insufficiency: 100 - 200 Normal: >200 Performed at: [facility] [address] [id number] Geophysicist: Jareth Mosquera MD, Phone: [phone] 49 DROP OFF SPEC COLLECTED BY NURSE 50 Thyroglobulin Antibody measured by Sanna [facility] [employer] 51 Performed at: - [facility] [address] [id number] Geophysicist: Clementine Ann MD, Phone: [phone] 52 Instrument flagged sample for slide review. Less than 10% Bands seen, no other immature WBC's seen. RBC morphology essentially normal. Platelet estimate=Normal 53 BACK PAIN 54 URINE, CLEAN CATCH 55 DIFFICULTY URINATING 56 URINE, CLEAN CATCH 57 J02.8 58 BETA STREPTOCOCCUS GROUP A 59 PENICILLIN OR AMPICILLIN. 60 ERYTHROMYCIN MAY BE USED IN PENICILLIN ALLERGIC INDIVIDUALS Procedures Date Code Description Status 05/28/2018 68804 Brief Emotional/Behav Assessment W/ Scoring Doc Per Completed Standard Inst 05/02/2018 52476 Brief Emotional/Behav Assessment W/ Scoring Doc Per Completed Standard Inst 02/27/2018 58505 Bronchospasm Provocation Evaluation Multi Spirometric Completed Determinati 02/27/2018 71495 Spirometry Completed 02/19/2018 76717 Eye Exam Est Patient Comprehensive Completed 02/12/2018 55189 Cognitive Test By Healthcare Professional Completed 02/04/2018 19169 EGD With Biopsy Completed 08/09/2017 92656 Measurement Post Voiding Residual Urine By Completed Ultrasound,Non-Imaging 06/19/2017 52382 complex uroflowmetry electronic Completed 06/19/2017 12820 Measurement Post Voiding Residual Urine By Completed Ultrasound,Non-Imaging 06/19/2017 09320 Cystoscopy Completed 06/05/2017 83625 Measurement Post Voiding Residual Urine By Completed Ultrasound,Non-Imaging 06/05/2017 08658 complex uroflowmetry electronic Completed 04/17/2017 72440 Brief Emotional/Behav Assessment W/ Scoring Doc Per Completed Standard Inst 01/05/2017 68405 Breath Hydrogen Test Completed 12/05/2016 25 Disability Form Completed 07/18/2016 76132 Hemorrhoidectomy Internal Ligation Other Than Rubber Completed Band Multipl 07/18/2016 31509 Colonoscopy Completed 07/18/2016 58296039 Colonoscopy Completed 07/04/2016 00440 EGD With Biopsy Completed 05/29/2006 02862601 Colonoscopy Completed Encounters Type Date Location Provider Dx Diagnosis Office Visit 05/28/2018 Family Medicine Yaquelin Helton, F31.9 Bipolar disorder, 2:00p [address] PNP-BC, LOOM FIXER, unspecified Ibclc G47.00 Insomnia, unspecified M54.5 Low back pain Office Visit 05/02/2018 2:45p Family Medicine Danie R41.[address] Yaquelin, concentration PNP-BC, LOOM FIXER, deficit Ibclc K21.0 Gastro-esophageal reflux disease with esophagitis Office Visit 04/10/2018 11:15a Family Medicine Danie R41.[address] Yaquelin, concentration PNP-BC, LOOM FIXER, deficit Ibclc K21.0 Gastro-esophageal reflux disease with esophagitis F31.9 Bipolar disorder, unspecified Office Visit 03/07/2018 1:00p Pulmonology Laurie Serrano, J43.9 Emphysema , PA unspecified K21.0 Gastro-esophageal reflux disease with esophagitis Office Visit 02/25/2018 12:30p Family Medicine Yaquelin Helton, J01.90 Acute sinusitis, West RD PNP-BC, LOOM FIXER, unspecified Ibclc M62.838 Other muscle spasm Z23 Encounter for immunization Office Visit 02/21/2018 2:00p Pulmonology Braeden Mccurdy MD J44.9 Chronic obstructive pulmonary disease, unspecified J30.89 Other allergic rhinitis F17.211 Nicotine dependence, cigarettes, in remission Office Visit 02/12/2018 3:15p Family Medicine Araceli, R41.[address] BERNARDA Benjamin concentration deficit R26.0 Ataxic gait Office Visit 01/22/2018 3:00p GI Gunner Still MD R10.13 Epigastric pain R14.0 Abdominal distension (gaseous) Office Visit 01/04/2018 8:30a Family Medicine [address] RD Joahnna Lopez, LOOM FIXER R05 Cough R06.02 Shortness of breath Office Visit 12/27/2017 4:30p Family Medicine Danie G62.9 Polyneuropathy, West RD Yaquelin, unspecified PNP-BC, LOOM FIXER, Ibclc M62.830 Muscle spasm of back Office Visit 12/05/2017 11:45a Family Medicine Yaquelin Helton, F41.9 Anxiety disorder, West RD PNP-BC, LOOM FIXER, unspecified Ibclc M54.5 Low back pain Z13.1 Encounter for screening for diabetes mellitus Z13.220 Encounter for screening for lipoid disorders Z13.0 Encntr screen for dis of the bld/bld-form org/immun [facility] Office Visit 10/15/2017 2:00p Family Medicine Yaquelin Helton, A08.[address] PNP-BC, LOOM FIXER, infection, Ibclc unspecified Office Visit 09/27/2017 11:00a Family Medicine Family Nurse R03.[address] blood-pressure reading, w/o diagnosis of htn Office Visit 09/11/2017 2:00p Family Medicine Yaquelin Helton, M54.5 Low back pain [address] PNP-BC, LOOM FIXER, Ibclc F41.9 Anxiety disorder, unspecified R03.0 Elevated blood-pressure reading, w/o diagnosis of htn Office Visit 08/28/2017 1:30p Family Medicine Yaquelin Helton, M54.5 Low back pain [address] PNP-BC, LOOM FIXER, Ibclc Office Visit 08/09/2017 11:45a Urology Clarke Zhang, R35.1 Nocturia M.DSatish N40.1 Benign prostatic hyperplasia with lower urinary tract symp Office Visit 06/20/2017 11:00a Family Medicine Danie G62.9 Polyneuropathy, West RD Yaquelin, unspecified PNP-BC, LOOM FIXER, Ibclc M54.5 Low back pain Office Visit 06/19/2017 11:15a Urology Clarke Zhang M.D. R35.1 Nocturia N40.1 Benign prostatic hyperplasia with lower urinary tract symp Office Visit 06/05/2017 2:00p Urology Clarke Zhang, Z12.5 Encounter for M.DSatish screening for malignant neoplasm of prostate N40.1 Benign prostatic hyperplasia with lower urinary tract symp R33.9 Retention of urine, unspecified Office Visit 05/23/2017 11:45a Family Medicine Yaquelin Helton, M25.551 Pain in right [address] PNP-BC, LOOM FIXER, hip Ibclc F41.9 Anxiety disorder, unspecified M54.5 Low back pain G47.00 Insomnia, unspecified R39.12 Poor urinary stream I83.93 Asymptomatic varicose veins of bilateral lower extremities Office Visit 04/30/2017 Family Peña I83.93 Asymptomatic 1:00p Medicine West Jenniferleigh, LOOM FIXER varicose veins of RD bilateral lower extremities Office Visit 04/17/2017 Family Yaquelin Helton, F41.9 Anxiety disorder, 3:30p Medicine West PNP-BC, LOOM FIXER, Ibclc unspecified RD Office Visit 02/28/2017 Yaquelin Kent M54.5 Low back pain 10:15a Medicine West PNP-BC, LOOM FIXER, Ibclc RD M25.512 Pain in left shoulder Office Visit 12/20/2016 3:30p ABEL Flaherty MD K22.70 Spivey's esophagus without dysplasia R14.0 Abdominal distension (gaseous) R19.4 Change in bowel habit R10.9 Unspecified abdominal pain K59.00 Constipation, unspecified Office Visit 11/27/2016 1:45p Family Medicine Claudio Peña M54.[address] LOOM FIXER pain Office Visit 11/21/2016 10:00a Family [facility] Yaquelin Helton M54.[address] PNP-BC, LOOM FIXER, Ibclc pain M62.830 Muscle spasm of back Office Visit 11/16/2016 1:15p Family Medicine Claudio Peña M54.[address] LOOM FIXER pain G47.09 Other insomnia R53.83 Other fatigue Office Visit 10/11/2016 2:30p Family Medicine Yaquelin Helton, M62.[address] PNP-BC, LOOM FIXER, of back Ibclc N32.9 Bladder disorder, unspecified F31.89 Other bipolar disorder Office Visit 09/07/2016 9:30a Family Yaquelin Helton, M62.830 Muscle spasm of Medicine West PNP-BC, LOOM FIXER, back RD Ibclc Office Visit 08/10/2016 2:45p Surgical Mary Jaquez64.5 Perianal venous Office efren Hodges M.D. Z12.11 Encounter for screening for malignant neoplasm of colon K62.3 Rectal prolapse Office Visit 07/31/2016 10:30a Surgical Office Tony Wallace.5 Perianal venous efren Mccormick MD,FACS Office Visit 07/21/2016 9:15a ABEL Flaherty MD K22.70 Spivey's esophagus without dysplasia K29.70 Gastritis, unspecified, without bleeding K59.04 Chronic idiopathic constipation Office Visit 07/06/2016 1:30p Surgical Office Leonid, K62.3 Rectal prolapse Efraín Yusuf M.D. Office Visit 06/26/2016 10:15a Family Medicine Yaquelin Helton, J02.[address] PNP-BC, LOOM FIXER, due to other Ibclc specified organisms M54.5 Low back pain Office Visit 06/16/2016 11:15a ABEL Flaherty MD K59.04 Chronic idiopathic constipation K62.3 Rectal prolapse Office Visit 06/14/2016 1:00p Family Medicine Yaquelin Helton, M54.5 Low back pain [address] PNP-BC, LOOM FIXER, Ibclc K59.00 Constipation, unspecified G24.01 Drug induced subacute dyskinesia Office Visit 05/31/2016 2:00p Family Medicine Yaquelin Helton, K59.00 Constipation, West RD PNP-BC, LOOM FIXER, unspecified Ibclc N81.6 Rectocele F31.9 Bipolar disorder, unspecified G24.01 Drug induced subacute dyskinesia Plan of Treatment Future Appointment(s):08/21/2018 10:00 am - Laurie Serrano PA at [id number]/ 19/2019 - Yaquelin Helton, PNP-BC, LOOM FIXER, BqwtwR01.9 Bipolar disorder, unspecifiedComments:call rajesh and ask her to get you set up to get back on meds for the bipolar. we'll get your letter for DydnrxU07.00 Insomnia, unspecifiedComments:restart the ulhtueachcV50.5 Low back painComments:with the amount of arthritis in your back if you need to use more then 2 of the oxycodone on bad days that is fine.you could take 2 of the Meloxicam on occasion but it is an NSAID so we don't really want to do too much of that b/c of all your stomach issues.
--- NOTE | 2018-06-26 21:40 | ED ---
Psychiatric Complaint - HPI Summary HPI Summary: This patient is a 48 year old M presenting to ED accompanied by his with a chief complaint of SI since a few days ago. He says he has been praying that God would take him out of this world. Patient currently takes paroxetine and his plan would be to take his bottle of Paroxetine. The patient rates the pain 0 /10 in severity. Symptoms aggravated by nothing. Symptoms alleviated by nothing. He does not have a psychiatrist and his PCP gives him the paroxetine. He has been taking it for over a year now. PMHx of bipolar disorder. He used to take rx for it but was taken off of it because he was having involuntary body movements. He has not been admitted to [facility] before. - History Of Current Complaint Chief Complaint: EDMentalHealth Time Seen by Provider: 06/26/18 21:14 Hx Obtained From: Patient Onset/Duration: Sudden Onset, Lasting Days, Still Present Timing: Constant Severity Currently: None Aggravating Factor(s): Nothing Alleviating Factor(s): Nothing Related History: Positive For: Prior Psychiatric Issues Has Suicidal: Reports: Thoughts, With A Plan Has Homicidal: Denies: Thoughts - Allergies/Home Medications Allergies/Adverse Reactions: Allergies Allergy/AdvReac Type Severity Reaction Status Date / Time Penicillins Allergy Nausea And Verified 06/26/18 20:59 Vomiting pregabalin [From Lyrica] Allergy See Comment Verified 06/26/18 20:59 PMH/Surg Hx/FS Hx/Imm Hx Endocrine/Hematology History: Denies: Hx Diabetes Cardiovascular History: Denies: Hx Coronary Artery Disease, Hx Hypertension Respiratory History: Reports: Hx Chronic Obstructive Pulmonary Disease (COPD) - MILD GI History: Reports: Hx Hiatal Hernia History: Denies: Hx Dialysis Musculoskeletal History: Reports: Other Musculoskeletal History - chronic back pain Sensory History: Denies: Hx Deafness Psychiatric History: Reports: Hx Bipolar Disorder - Surgical History Surgery Procedure, Year, and Place: Back surgeries. Dorsal Column Stimulator, appy, varicocele repair, speed banding for hemorrhoids Infectious Disease History: No Infectious Disease History: Denies: Hx Clostridium Difficile, Hx Hepatitis, Hx Human Immunodeficiency Virus (HIV), Hx of Known/Suspected MRSA, Hx Shingles, Hx Tuberculosis, Hx Known/ Suspected VRE, Hx Known/Suspected VRSA, History Other Infectious Disease, Traveled Outside the [place] in Last 30 Days - Family History Known Family History: Positive: Diabetes, Other Negative: Renal Disease Family History: diverticulitis - Social History Alcohol Use: Weekly Substance Use Type: Reports: None Smoking Status (MU): Former Smoker Amount Used/How Often: 1 ppd Length of Time of Smoking/Using Tobacco: 10 -15 years Have You Smoked in the Last Year: No Review of Systems Negative: Fever Positive: Other - SI All Other Systems Reviewed And Are Negative: Yes Physical Exam - Summary Physical Exam Summary: VITAL SIGNS: Reviewed. GENERAL: Patient is a well-developed and nourished MALE who is lying comfortable in the stretcher. Patient is not in any acute respiratory distress. HEAD AND FACE: No signs of trauma. No ecchymosis, hematomas or skull depressions. No sinus tenderness. EYES: PERRLA, EOMI x 2, No injected conjunctiva, no nystagmus. EARS: Hearing grossly intact. Ear canals and tympanic membranes are within normal limits. MOUTH: Oropharynx within normal limits. NECK: Supple, trachea is midline, no adenopathy, no JVD, no carotid bruit, no c- spine tenderness, neck with full ROM. CHEST: Symmetric, no tenderness at palpation LUNGS: Clear to auscultation bilaterally. No wheezing or crackles. CVS: Regular rate and rhythm, S1 and S2 present, no murmurs or gallops appreciated. ABDOMEN: Soft, non-tender. No signs of distention. No rebound no guarding, and no masses palpated. Bowel sounds are normal. EXTREMITIES: FROM in all major joints, no edema, no cyanosis or clubbing. NEURO: Alert and oriented x 3. No acute neurological deficits. Speech is normal and follows commands. SKIN: Dry and warm PSYCH: Patient is suicidal. Triage Information Reviewed: Yes Vital Signs On Initial Exam: Initial Vitals Temp Pulse Resp BP Pulse Ox 98.3 F 67 16 120/91 95 06/26/18 20:52 06/26/18 20:52 06/26/18 20:52 06/26/18 20:52 06/26/18 20:52 Vital Signs Reviewed: Yes Diagnostics - Vital Signs Vital Signs Temp Pulse Resp BP Pulse Ox 06/26/18 20:52 98.3 F 67 16 120/91 95 - Laboratory Result Diagrams: 06/26/18 21:49 06/26/18 21:49 Lab Statement: Any lab studies that have been ordered have been reviewed, and results considered in the medical decision making process. Course/Dx - Course Assessment/Plan: This patient is a 48 year old M presenting to ED accompanied by his with a chief complaint of SI since a few days ago. Patient is medically cleared for MHE at 2329. Per Dr. Villanueva, the pt would ideally be involuntarily admitted for mood disorder NOS, but will be transferred due to lack of beds. The pt will be signed out to Dr. Gallo pending transfer. - Differential Dx/Clinical Impression Provider Diagnosis: Mood disorder Discharge - Sign-Out/Discharge Documenting (check all that apply): Patient Departure, Sign-Out Patient Signing out patient TO: Cesar Gallo Patient Received Moderate/Deep Sedation with Procedure: No - Discharge Plan Condition: Stable Disposition: [facility] Referrals: Yaquelin Helton, SALES INTERN [Primary Care Provider] - - Attestation Statements Document Initiated by Scribe: Yes Documenting Scribe: Benny Flaherty Provider For Whom Scribe is Documenting (Include Credential): Efe Bermudez MD Scribe Attestation: Benny King, scribed for Efe Bermudez MD on 06/27/18 at 3577. Status of Scribe Document: Ready
[2018-06-26 21:54] LABS: ABS Basophils 0.1 10^3/ul (0-0.2); ABS Eosinophils 0.7 10^3/ul (0-0.6); ABS Lymphocytes 2.3 10^3/ul (1.0-4.8); ABS Monocytes 0.5 10^3/ul (0-0.8); ABS Neutrophils 3.1 10^3/ul (1.5-7.7); ABS Nucleated RBC 0 10^3/ul; Eosinophil % 10.2 %; Hematocrit 43 % (36-46); Lymphocyte % 34.8 %; Mean Corpuscular HGB Conc 35 g/dL (31-36); Mean Corpuscular Hemoglobin 32 pg (27-31); Mean Corpuscular Volume 91 fL (80-94); Mean Platelet Volume 8.4 fL (7.4-10.4); Nucleated Red Blood Cells % 0.1; Platelet Count 231 10^3/uL (150-450); Red Blood Count 4.71 10^6 /uL (4.18-5.48); Red Cell Distribution Width 14 % (10.5-15); White Blood Count 6.6 10^3/uL (3.5-10.8)
[2018-06-26 22:11] LABS: ALT 17 U/L (7-52); AST 18 U/L (13-39); Albumin 4.2 g/dL (3.2-5.2); Albumin/Globulin Ratio 1.5 (1-3); Alkaline Phosphatase 92 U/L (34-104); Anion Gap 5 mmol/L (2-11); BUN/Creatinine Ratio 14.6 (8-20); Blood Urea Nitrogen 13 mg/dL (6-24); CO2 Carbon Dioxide 28 mmol/L (22-32); Calcium 8.7 mg/dL (8.6-10.3); Chloride 107 mmol/L (101-111); EGFR African American 109.9 (>60); EGFR Non-African American 90.9 (>60); Globulin 2.8 g/dL (2-4); Glucose 97 mg/dL (70-100); Potassium 3.8 mmol/L (3.5-5.0); Sodium 140 mmol/L (135-145)
[2018-06-26 22:24] LABS: Acetaminophen < 15 mcg/mL; Alcohol < 10 mg/dL (<10); Salicylate < 2.50 mg/dL (<30)
[2018-06-26 22:39] LABS: TSH (Thyroid Stimulating Horm) 2.16 mcIU/mL (0.34-5.60)
[2018-06-26 22:55] LABS: Urine Appearance Clear; Urine Bilirubin Negative (Negative); Urine Blood Negative (Negative); Urine Color Yellow; Urine Glucose Negative (Negative); Urine Ketones Negative (Negative); Urine Nitrite Negative (Negative); Urine Protein Negative (Negative); Urine Specific Gravity 1.021 (1.010-1.030); Urine Urobilinogen Positive (Negative)
[2018-06-26 23:14] LABS: Barbiturates Urine Screen None Detected (None Detect); Benzodiazepine Urine Screen None Detected (None Detect); Urine Cannabinoids Screen None Detected (None Detect)
[2018-06-27] MEDS ORDERED: ESOMEPRAZOLE 20 MG PO ONE (02:05)
[2018-06-27] MEDS ORDERED: Pantoprazole TAB * 40 MG TAB PO ONE (03:00)
[2018-06-27] MEDS ORDERED: clonazePAM TAB(*) 1 MG PO ONE (04:25)
--- NOTE | 2018-06-27 07:16 | ED ---
Progress - Progress Note Progress Note: This patient was signed out from Dr. Bermudez to Dr. Gallo upon shift change at 07: 00 06/27/18 pending mental health transfer. Per Mental health entry specialist, Dr. Whatley has decided that the patient will be a voluntary admit. Dx: unspecified depression. The patient is agreeable with this plan. - Consult/PCP Time Called: 23:30 Course/Dx - Course Course Of Treatment: Mr. Nicole was offered voluntary admission and accepted. - Diagnoses Provider Diagnoses: Depression - Provider Notifications Discussed Care Of Patient With: Murphy Whatley Time Discussed With Above Provider: 10:27 Instructed by Provider To: Other - Per Mental health entry specialist, Dr. Whatley has decided that the patient will be a voluntary admit. Dx: unspecified depression. Discharge - Sign-Out/Discharge Documenting (check all that apply): Patient Departure - admit Patient Received Moderate/Deep Sedation with Procedure: No - Discharge Plan Condition: Stable Disposition[place] [facility] Referrals: Yaquelin Helton, SUPER[employer]ING [Primary Care Provider] - - Billing Disposition and Condition Condition: STABLE Disposition: [facility] [place] [facility] - Attestation Statements Document Initiated by Scribe: Yes Documenting Scribe: Porfirio Santa Provider For Whom Scribe is Documenting (Include Credential): Cesar Gallo MD Scribe Attestation: IPorfirio, scribed for Cesar Gallo MD on 06/27/18 at 1043. Scribe Documentation Reviewed: Yes Provider Attestation: The documentation as recorded by the Porfirio yusuf accurately reflects the service I personally performed and the decisions made by me, Cesar Gallo MD Status of Scribe Document: Viewed
[2018-06-27] MEDS ORDERED: Al Hydrox/Mg Hydrox/Simet LIQ* 30 ML UDC PO PRN (10:05)
[2018-06-27] MEDS ORDERED: hydrOXYzine HCL TAB* 50 MG PO PRN (10:08)
--- NOTE | 2018-06-27 10:17 | PN ---
ED Flex Patient Progress Note Date of Service: 06/26/18 Subjective: This is a 48 year-old M who is pending admission to [facility] / transfer to another psychiatric facility / discharge to home / or being observed secondary to SI. Pt. examined in room 22 around 1015. He is resting comfortably without complaints. Objective: Vitals: Most recent vital signs documented below. General NAD, Alert and oriented x3. Laboratory: Current laboratory results documented below. Assessment: SI Plan: Pending admission to [facility]. Vital Signs Temp Pulse Resp BP Pulse Ox 98.4 F 55 16 119/77 96 06/27/18 09:07 06/27/18 09:07 06/27/18 09:07 06/27/18 09:07 06/27/18 09:07 Lab Results - Entire Visit 06/26/18 06/26/18 06/26/18 22:40 22:40 21:49 WBC RBC Hgb Hct MCV MCH MCHC RDW Plt Count MPV Neut % (Auto) Lymph % (Auto) Lucas % (Auto) Eos % (Auto) Baso % (Auto) Absolute Neuts (auto) Absolute Lymphs (auto) Absolute Monos (auto) Absolute Eos (auto) Absolute Basos (auto) Absolute Nucleated RBC Nucleated RBC % Sodium 140 Potassium 3.8 Chloride 107 Carbon Dioxide 28 Anion Gap 5 BUN 13 Creatinine 0.89 Est GFR ( Amer) 109.9 Est GFR (Non-Af Amer) 90.9 BUN/Creatinine Ratio 14.6 Glucose 97 Calcium 8.7 Total Bilirubin 0.40 AST 18 ALT 17 Alkaline Phosphatase 92 Total Protein 7.0 Albumin 4.2 Globulin 2.8 Albumin/Globulin Ratio 1.5 TSH 2.16 Urine Color Yellow Urine Appearance Clear Urine pH 6.0 Ur Specific [place] 1.021 Urine Protein Negative Urine Ketones Negative Urine Blood Negative Urine Nitrate Negative Urine Bilirubin Negative Urine Urobilinogen Positive A Ur Leukocyte Esterase Negative Urine Glucose Negative Salicylates < 2.50 Urine Opiates Screen None detected Acetaminophen < 15 Ur Barbiturates Screen None detected Ur Phencyclidine Scrn None detected Ur Amphetamines Screen None detected U Benzodiazepines Scrn None detected Urine Cocaine Screen None detected U Cannabinoids Screen None detected Serum Alcohol < 10 06/26/18 21:49 WBC 6.6 RBC 4.71 Hgb 15.0 Hct 43 MCV 91 MCH 32 H MCHC 35 RDW 14 Plt Count 231 MPV 8.4 Neut % (Auto) 47.0 Lymph % (Auto) 34.8 Lucas % (Auto) 6.8 Eos % (Auto) 10.2 Baso % (Auto) 1.2 Absolute Neuts (auto) 3.1 Absolute Lymphs (auto) 2.3 Absolute Monos (auto) 0.5 Absolute Eos (auto) 0.7 H Absolute Basos (auto) 0.1 Absolute Nucleated RBC 0 Nucleated RBC % 0.1 Sodium Potassium Chloride Carbon Dioxide Anion Gap BUN Creatinine Est GFR ( Amer) Est GFR (Non-Af Amer) BUN/Creatinine Ratio Glucose Calcium Total Bilirubin AST ALT Alkaline Phosphatase Total Protein Albumin Globulin Albumin/Globulin Ratio TSH Urine Color Urine Appearance Urine pH Ur Specific [place] Urine Protein Urine Ketones Urine Blood Urine Nitrate Urine Bilirubin Urine Urobilinogen Ur Leukocyte Esterase Urine Glucose Salicylates Urine Opiates Screen Acetaminophen Ur Barbiturates Screen Ur Phencyclidine Scrn Ur Amphetamines Screen U Benzodiazepines Scrn Urine Cocaine Screen U Cannabinoids Screen Serum Alcohol
[2018-06-27] MEDS: Tamsulosin CAP* 0.4 MG PO SCH (12:20)
[2018-06-27] MEDS: Pantoprazole TAB * 40 MG TAB PO SCH (12:21)
[2018-06-27] MEDS: Acetaminophen TAB* 325 MG PO PRN (12:25)
[2018-06-27] MEDS: NIFEdipine CAP* 10 MG PO SCH ×2 (16:31→20:28)
[2018-06-27] MEDS ORDERED: Albuterol HFA INHALER* 8 gm MDI INH PRN (18:40)
[2018-06-27] MEDS: Famotidine TAB* 20 MG PO SCH (20:25)
[2018-06-27] MEDS: CMCS:Meloxicam(NF) 7.5 MG TAB PO SCH (20:26)
[2018-06-27] MEDS ORDERED: PARoxetine HCL TAB* 20 MG PO SCH (21:00)
[2018-06-28] MEDS: Tamsulosin CAP* 0.4 MG PO SCH (08:09)
[2018-06-28] MEDS: CMCS:Meloxicam(NF) 7.5 MG TAB PO SCH ×2 (08:10→20:23)
[2018-06-28] MEDS: Famotidine TAB* 20 MG PO SCH ×2 (08:10→20:21)
[2018-06-28] MEDS: Pantoprazole TAB * 40 MG TAB PO SCH (08:10)
[2018-06-28] MEDS: NIFEdipine CAP* 10 MG PO SCH ×3 (08:11→20:24)
[2018-06-28 09:34] LABS: HDL Cholesterol 43.9 mg/dL
[2018-06-28] MEDS: Acetaminophen TAB* 325 MG PO PRN ×2 (11:40→17:02)
--- NOTE | 2018-06-28 15:25 | HP ---
AMENDED REPORT NOW INCLUDES DESIGNATED COSIGNER HISTORY AND PHYSICAL: DATE OF ADMISSION: 06/27/18 PROVIDER: Juli Napier NP, Psychiatry. SUPERVISING PHYSICIAN: Murphy Whatley MD.* (DICTATED BY JULI NAPIER NP) JUSTIFICATION FOR ADMISSION: The patient is in need of 24-hour supervision and care secondary to suicidal ideation. CHIEF COMPLAINT: "I have dementia symptoms, most severely in the last week." HISTORY OF PRESENT ILLNESS: The patient is a 48-year-old white male with a history of bipolar disorder, who arrives brought in by car and is here on a voluntary status following his admission that he is wishing that God would take him out of the world. He is concerned that in his surgery that was scheduled for 07/08/18 that he would on the surgical table. When I speak with Danilo, he is extremely circumstantial in speech. He mentions that his chief complaint is not suicidal ideation, but in fact is that he cannot follow the plot of [place] and [place] or [place] anymore. He states he walked to the sink to urinate. He is putting things in the wrong place like dry items in the fridge and refrigeratable items in the cupboard. He talks in a round about way about how this all started 2 years ago when he fell out of love with his and began helping others. He states he has a blog on Facebook called Danilo's helpful hand, which I was unable to find on Facebook. He states that since he fell out of love with his , he has wanted to help others. He appears to be a person who can conflate many different eras of his life into 1 time. For example, he states that he sees bugs that he has involuntary body movements, but later he admits these are times that are in the past and they are no longer true. PAST PSYCHIATRIC HISTORY: He has been admitted to the hospital in 2003 in [place] and for a suicide attempt in 1997 when he tried to tape a vacuum brass cleaner tube from the exhaust pipe in his vehicle to the window of his car. He was interrupted by his . He denies a history of violence. He denies access to weapons. He denies having a psychiatrist at this time. He states that he took Geodon in the past, but he was told that his bipolar disorder was in remission, that occurred a year ago. He has since by his PCP, Yaquelin Helton, was started on paroxetine 50 mg. Danilo believes that he has bipolar disorder. He states he was diagnosed in 1992. This admission comes in the midst of trips to the neurologist, Dr. Llanes and Dr. Natarajan (?) where they are having a hard time finding what is wrong for him. He did say that he had a brain scan in [place] and "they didn't find anything." PAST MEDICAL HISTORY: Danilo has a lot of problems with his back. He has had 2 surgeries on it, one at the [facility] which went poorly and he says it only lasted 3 months. He has been to the neurologist for his back. He also said that the neurologist stated "I will not give you a psychiatric evaluation." His primary care provider is Yaquelin Helton. He says he has a hiatal hernia that is severe enough that they have to do surgery, also the back surgery was in 2012. FAMILY HISTORY: He states he has an uncle Rom on his mother's side who had schizophrenia. He also states my mom is "crazy." SUBSTANCE USE: He denies using nicotine. He denies using illicit drugs. He does say that he has 3 [place] beers a day, but he also stated that starting 3 weeks ago he started drinking shots at a bar and has "gotten plastered" and he started going to the bar daily. 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 He was to his whom he , but she is his best friend and now she stays with him a lot of the time. He was employed at [employer] for 3 years but his doctor took him out of work because of back pain. He has not been in the . He has no legal history. He does find it important to say that his parents were in the [employer] cult and he has had a few marriages. REVIEW OF SYMPTOMS: The patient reports feeling fatigued. He denies shortness of breath, heart or cold intolerance, chest or abdominal pain. He denies neurological symptoms other than back pain. He denies fevers or changes in weight. PHYSICAL EXAMINATION VITAL SIGNS: On 06/27/18 at 1510, temperature was 97.9, pulse 65, respirations 16, O2 sat on room air 99%, blood pressure 125/80. For further exam data, please see the emergency department records. LABORATORY DATA: Largely within normal limits, exceptions include MCH high at 32, absolute eosinophils high at 0.7. His urine screen is positive for urobilinogen, but his toxicology screen is free of all substances. MENTAL STATUS EXAMINATION: This is a man who uses a cane. He has blonde hair. He appears older than his stated age. He also has a mustache. He is calm and cooperative. His speech is in a normal rate and tone, but he is loud. He appears to be euthymic. He has a full range of affect. His thought process is circumstantial. His thought content may contain delusions, it is unclear at this time. He states he is not homicidal or suicidal at this time, although at his initial evaluation, he was suicidal. He states he is free of hallucinations. His insight is fair. His judgment is fair. He is alert and oriented x3. DIAGNOSIS: History of bipolar disorder type 1. IMPRESSION: Danilo is a 48-year-old man who comes to the hospital with complaints of suicidal ideation that are largely passive but potentially dangerous as he has been diagnosed in the past with bipolar disorder and anxiety disorder. PLAN: The patient is admitted to the adult behavioral health unit and placed on q.15 minute checks for his own safety. He is encouraged to participate in supportive milieu, individual and group therapies. Estimated length of stay is 5 to 7 days. We will obtain an MMPI for diagnostic clarification. We also performed a MoCA which revealed a normal result. We are stopping paroxetine due to possibility of a kindling heaven and bipolar disorder. We will begin Abilify 5 mg. Discharge planning will include family involvement and outpatient providers. JULI NAPIER, CHIDI [id number]/[facility] #: [id number] MOISES
[2018-06-28] MEDS: ARIPiprazole TAB* 5 MG PO SCH ×2 (20:21→21:05)
[2018-06-29] MEDS: Acetaminophen TAB* 325 MG PO PRN (05:10)
[2018-06-29] MEDS: NIFEdipine CAP* 10 MG PO SCH ×3 (08:55→21:01)
[2018-06-29] MEDS: CMCS:Meloxicam(NF) 7.5 MG TAB PO SCH ×2 (08:55→21:01)
[2018-06-29] MEDS: Famotidine TAB* 20 MG PO SCH ×2 (08:55→21:00)
[2018-06-29] MEDS: Tamsulosin CAP* 0.4 MG PO SCH (08:55)
[2018-06-29] MEDS: ARIPiprazole TAB* 5 MG PO SCH (21:00)
[2018-06-30] MEDS: CMCS:Meloxicam(NF) 7.5 MG TAB PO SCH ×2 (08:22→20:14)
[2018-06-30] MEDS: Tamsulosin CAP* 0.4 MG PO SCH (08:23)
[2018-06-30] MEDS: NIFEdipine CAP* 10 MG PO SCH ×4 (08:23→23:05)
[2018-06-30] MEDS: Famotidine TAB* 20 MG PO SCH ×2 (08:23→20:14)
[2018-06-30] MEDS: Acetaminophen TAB* 325 MG PO PRN ×2 (09:49→13:58)
--- NOTE | 2018-06-30 15:10 | PN ---
Subjective - Subjective Date of Service: 06/30/18 Service Type: 54883 Hosp care 25 min moderate complexity Subjective: nIocente reports that he is doing well psychiatrically and didn't have any issues to discuss but physically not well as he has swelling of left upper extrimity. No yosef or fever. Says he is eating well and sleep has been good. In the milieu happily intreacting with peers and staffs. No concerns reported by staffs. Objective - General Observations Appearance: Well Groomed Appears Stated Age: Yes Stature: WNL Posture: WNL Eye Contact: Average Behavior/Activity: WNL Separation from Parent/Guardian: Unremarkable/Age Appropriate - Interaction Observations Attitude Towards Examiner: Cooperative Attitude Towards Parent/Guardian: Positive Interaction Stated Mood: Euthymic Affect: Full Speech Pattern/Tone: Clear, Appropriate Thought Process: Coherent, Goal Directed Perception: WNL Thought Content: WNL Hallucination Type: Denies Delusion Type: Denies - Cognitive Function Orientation: A&O x 4 Level of Consciousness: Awake Cognition: WNL Estimated Intelligence: Normal Insight: WNL Judgment Within Normal Limits: Yes - Medication Compliance Cooperative with Inpatient Medication Regimen: No - Group Participation Participates in Group Activities: Yes Assessment - Assessment Merits Inpatient Hospitalization: Consolidate Improvements, For Discharge Planning Clinical Impression: Doing well psychiatrically and may be discharged. Plan - Plan Treatment Plan: Name: INOCENTE SWANSON Birthdate: 1970 [id number] Continued Medication Management: Continue Outpt Medication Medications: Current Medications Acetaminophen (Tylenol Tab*) 650 mg PO Q4H PRN PRN Reason: for pain; or Temp >101 F Last Admin: 06/30/18 13:58 Dose: 650 mg Al Hydrox/Mg Hydrox/Simethicone (Maalox Plus*) 30 ml PO Q4H PRN PRN Reason: INDIGESTION Albuterol (Ventolin Hfa Inhaler*) 2 puff INH Q3H PRN PRN Reason: SHORTNESS OF BREATH Aripiprazole (Abilify Tab*) 5 mg PO BEDTIME [facility] Last Admin: 06/29/18 21:00 Dose: Not Given Famotidine (Pepcid Tab*) 20 mg PO BID [facility] Last Admin: 06/30/18 08:23 Dose: 20 mg Hydroxyzine HCl (Atarax Tab*) 50 mg PO Q6H PRN PRN Reason: ANXIETY Last Admin: 06/29/18 12:46 Dose: 50 mg Meloxicam (Mobic(Nf)) 7.5 mg PO BID [facility] Last Admin: 06/30/18 08:22 Dose: 7.5 mg Nifedipine (Procardia Cap*) 10 mg PO TID [facility] Last Admin: 06/30/18 08:23 Dose: 10 mg Tamsulosin HCl (Flomax Cap*) 0.8 mg PO DAILY [facility] Last Admin: 06/30/18 08:23 Dose: 0.8 mg - Discharge Plan Discharge Plan: Outpatient Follow Up Outpatient Program: [facility]
[2018-06-30] MEDS: ARIPiprazole TAB* 5 MG PO SCH (20:13)
[2018-07-01] MEDS: Famotidine TAB* 20 MG PO SCH (07:52)
[2018-07-01] MEDS: NIFEdipine CAP* 10 MG PO SCH ×2 (07:52→15:29)
[2018-07-01] MEDS: Tamsulosin CAP* 0.4 MG PO SCH (07:52)
[2018-07-01] MEDS: CMCS:Meloxicam(NF) 7.5 MG TAB PO SCH (07:52)
[2018-07-01] MEDS: Acetaminophen TAB* 325 MG PO PRN ×2 (08:52→15:29)
[2018-07-01 09:13] VITALS: BP 122/83
--- NOTE | 2018-07-01 13:08 | PN ---
BSU: Group Therapy Note - Service Type Service Type: [id number] Group Psychotherapy - Cognitive Behavioral Group Therapy ( CBT):Patient was attentive and participatory in CBT programming this morning, and remained in good behavioral control. Patient expressed positive insights regarding relevant treatment interventions and goals.
--- NOTE | 2018-07-01 23:16 | DS ---
CC: [facility]; [facility]; Yaquelin Helton * DISCHARGE SUMMARY: DATE OF ADMISSION: 06/27/18 DATE OF DISCHARGE: 07/01/18 PROVIDER: Juli Napier NP, in Psychiatry. SUPERVISING PHYSICIAN: Dr. Murphy Whatley.* (DICTATED BY JULI NAPIER NP ) DIAGNOSES: 1. Bipolar 1 disorder. 2. Rule out personality disorder. CONDITION AT THE TIME OF DISCHARGE: Improved. Psychiatrically cleared. Stable. Danilo participated in groups and was social with peers. He has done well here psychiatrically. He is scheduled to attend [facility]. No medication changes were made as Danilo refused Abilify statiing his insurance would not cover it. MENTAL STATUS EXAMINATION: At the time of discharge, Danilo is calm and cooperative. He makes good eye contact. He is alert and oriented x3. His grooming is good. His speech pace is normal. His thought processes are logical. He is not psychotic or delusional. He denies AH, VH, SI, and HI. His insight is good. His judgment is good. He is willing to follow up. DISCHARGE INSTRUCTIONS TO THE PATIENT: A. Medications: His other medications from the outpatient setting have remained the same. B. Diet is regular. C. Activities are as tolerated. Danilo is a nonsmoker. There are no studies pending at the time of discharge. D. Followup care: He has appointments at [facility] on 07/02/18 at 11 o'clock. He also has an appointment at [facility] on 07/04 at 10:45 with Jordyn Dean and an appointment with Yaquelin Helton NP on 07/11/18 at 11:30. E. Substance abuse followup is not indicated. HOSPITAL COURSE: Part A: Chief complaint: "I have dementia symptoms, most severely in the past week." The patient is a 48-year-old white male with a history of bipolar disorder, who arrives brought in by car and is here on a voluntary status following his admission that he is wishing that God would take him out of the world. He is concerned in his surgery that was scheduled for 07/08/18 that he would on the surgical table. When I speak with Danilo, he is extremely circumstantial in speech. He mentions that his chief complaint is not suicidal ideation, but in fact that he cannot follow the plot of law and order or [employer] anymore. He states he walked into the sink to urinate. He is putting things in the wrong place like dry items in the fridge and refrigeratable items in the cupboard. He talks in a round about way about how this all started 2 years ago when he fell out of love with his and began helping others. He states he has a blog on Facebook called Danilo's Helpful Hand, which I was unable to find on Facebook. He states that since he fell out of love with his , he has wanted to help others. He appears to be a person who can conflate many different eras of his life into one time. For example, he states that he sees bugs that he has involuntary body movements, but he later admits that these are items that are in the past and they are no longer true. Part B: Psychiatric treatment was rendered. Danilo was admitted to the Adult Behavioral Unit and placed on 15-minute checks for safety. Danilo enjoyed being on the unit, meeting new people and going to groups. He stated that he found it very helpful and that he learned a lot from both the groups and his new friends. He interacted with them very well. Medications were continued from home. His hemoglobin A1c was 4.8, triglycerides were 123, cholesterol was 190, LDL cholesterol was 122, HDL cholesterol was 43.9. He intends to return home. He would like to continue to be accompanied by his ex-. No consults were entered for Danilo. He is improved in mood. He seems quite communication and outreach manager and is full of smiles. The dementia diagnosis seems to have faded from his list of concerns. He was given a MoCA's exam and he scored 26 out of 30, which is an excellent score and does not indicate dementia at all. It is quite possible that his initial despair and anxiety were contributing to his inability to focus and concentrate. He gave no complaints of those during his admission here and once the initial interview was completed. JULI NAPIER, CHIDI [id number]/[facility] #: [id number] MOISES
== END 2018-07-01 17:34 | disposition home or self-care (01) | DRG 885 ==
LOC: ED 20:40 → BSU 06-27 10:05
PROVIDERS: ADMIT Psychiatry & Neurology Psychiatry; ATTEND Psychiatry & Neurology Psychiatry
DX: F31.9 Bipolar disorder, unspecified (principal); R45.851 Suicidal ideations; F60.9 Personality disorder, unspecified; K44.9 Diaphragmatic hernia without obstruction or gangrene; F41.9 Anxiety disorder, unspecified; Z81.8 Family history of other mental and behavioral disorders
CPT/HCPCS: 36415; 80053; 80061; 80307; 80320; 80329; 81003; 83036; 84443; 85025; 90853; 99222; 99232; 99238; 99284; A9270-GY; G0480

== ENCOUNTER 2018-09-23 20:20 | Emergency (ER) | payer MEDICARE ==
[2018-09-23] MEDS ORDERED: NS 0.9% 1000 ML** 1,000 ML IV ONE (21:37)
[2018-09-23] MEDS ORDERED: Lorazepam PYXIS KEY PRN (21:37)
[2018-09-23] MEDS ORDERED: Pantoprazole IV* 40 MG IV ONE (21:37)
[2018-09-23] MEDS ORDERED: LORazepam INJ* 2 MG/ML 1 ML VIAL IV PUSH ONE (21:37)
[2018-09-23] MEDS ORDERED: Glucagon* 1 MG VIAL IV ONE (21:38)
--- NOTE | 2018-09-23 21:44 | ED ---
Throat Pain/Nasal Congestion - HPI Summary HPI Summary: Patient is a 48 y/o M presenting to ED with complaints of throat pain and dysphagia. He is concerned that he has a piece of cabbage stuck in his throat. Patient notes that he had an esophageal spasms 30 minutes before eating dinner. He reports no difficulty breathing and no difficulty drinking water. Swallowing is noted to aggravate pain. On triage, pain is rated 8/10. Home medications and allergies are reviewed. - History of Current Complaint Chief Complaint: EDForeignBodyEsophag Time Seen by Provider: 09/23/18 20:58 Hx Obtained From: Patient Onset/Duration: Lasting Hours, Still Present Severity: Severe Associated Signs And Symptoms: Positive: Dysphagia Cough: None - Allergies/Home Medications Allergies/Adverse Reactions: Allergies Allergy/AdvReac Type Severity Reaction Status Date / Time Penicillins Allergy Nausea And Verified 09/23/18 20:56 Vomiting pregabalin [From Lyrica] Allergy See Comment Verified 09/23/18 20:56 PMH/Surg Hx/FS Hx/Imm Hx Endocrine/Hematology History: Denies: Hx Diabetes Cardiovascular History: Denies: Hx Coronary Artery Disease, Hx Hypertension Respiratory History: Reports: Hx Chronic Obstructive Pulmonary Disease (COPD) - MILD, Other Respiratory Problems/Disorders - Spontaneous right pneumothorax x 2 GI History: Reports: Hx Gastroesophageal Reflux Disease, Hx Hiatal Hernia, Other GI Disorders - Bon's Esophagus History: Denies: Hx Dialysis Musculoskeletal History: Reports: Hx Arthritis - Back, Hx Back Problems, Other Musculoskeletal History - chronic back pain Sensory History: Reports: Hx Contacts or Glasses Denies: Hx Deafness, Hx Hearing Aid Opthamlomology History: Reports: Hx Contacts or Glasses Psychiatric History: Reports: Hx Anxiety, Hx Depression, Hx Inpatient Treatment - [place] 2003, Hx Bipolar Disorder, Hx Suicide Attempt - 2003 prior to hospitalization Denies: Hx Attention Deficit Hyperactivity Disorder, Hx Eating Disorder, Hx Panic Disorder, Hx Post Traumatic Stress Disorder, Hx Schizophrenia, Hx of Violent Episodes Against Others, Hx Substance Abuse - Surgical History Surgery Procedure, Year, and Place: Back surgeries (2001, 2007, 2012, 2018). Dorsal Column Stimulator, appendectomy, varicocele repair, speed banding for hemorrhoids Infectious Disease History: No Infectious Disease History: Denies: Hx Clostridium Difficile, Hx Hepatitis, Hx Human Immunodeficiency Virus (HIV), Hx of Known/Suspected MRSA, Hx Shingles, Hx Tuberculosis, Hx Known/ Suspected VRE, Hx Known/Suspected VRSA, History Other Infectious Disease, Traveled Outside the [place] in Last 30 Days - Family History Known Family History: Positive: Diabetes, Other Negative: Renal Disease Family History: diverticulitis - Social History Alcohol Use: None Alcohol Amount: Beer Substance Use Type: Reports: None Smoking Status (MU): Former Smoker Amount Used/How Often: 1 ppd Length of Time of Smoking/Using Tobacco: 10 -15 years Have You Smoked in the Last Year: No Review of Systems ENT: Other - positive - throat pain, esophageal spasm, dysphagia; negative - inability to drink water Negative: Shortness Of Breath All Other Systems Reviewed And Are Negative: Yes Physical Exam Vital Signs On Initial Exam: Initial Vitals Pulse Pulse Ox 64 97 09/23/18 20:47 09/23/18 20:47 Diagnostics - Vital Signs Vital Signs Temp Pulse Resp BP Pulse Ox 09/23/18 21:00 67 97 09/23/18 20:48 97.4 F 69 16 131/91 97 09/23/18 20:47 64 97 - Laboratory Lab Statement: Any lab studies that have been ordered have been reviewed, and results considered in the medical decision making process. Re-Evaluation - Re-Evaluation First Eval Re-Evaluation Time: 23:10 Change: Unchanged Comment: Patient still reports that he is experiencing Sx and has difficulty swallowing. ENT to be consulted. Second Eval Re-Evaluation Time: 23:20 Change: Unchanged Comment: 2320 - Consult discussed with patient, patient will be discharged to home and follow up with Dr. Veras tomorrow in his office. EENT Course/Dx - Course Course Of Treatment: Patient is a 48 y/o M presenting to ED with complaints of throat pain and dysphagia. He is concerned that he has a piece of cabbage stuck in his throat. Patient notes that he had an esophageal spasms 30 minutes before eating dinner. He reports no difficulty breathing and no difficulty drinking water. Swallowing is noted to aggravate pain. Physical exam is unremarkable. During ED course, patient received fluids, protonix 40 mg IV, Ativan inj 1 mg IV PUSH, and glucagen 1 mg IV ED ONCE. 2310 - Patient still reports that he is experiencing Sx and has difficulty swallowing. ENT to be consulted. 4 - Patient's case was discussed with Dr. Veras, Dr. Veras is agreeable with having the patient come to his office tomorrow. 2320 - Consult discussed with patient, patient will be discharged to home and follow up with Dr. Veras tomorrow in his office. - Diagnoses Provider Diagnoses: Dysphagia - Provider Notifications Discussed Care Of Patient With: Calvin Veras Time Discussed With Above Provider: 23:14 Instructed by Provider To: Other - Patient's case was discussed with Dr. Veras, Dr. Veras is agreeable with having the patient come to his office tomorrow. Discharge - Sign-Out/Discharge Documenting (check all that apply): Patient Departure - discharge Patient Received Moderate/Deep Sedation with Procedure: No - Discharge Plan Condition: Stable Disposition: HOME Patient Education Materials: Dysphagia (ED) Referrals: Xin Mullins MD [Primary Care Provider] - Calvin Veras MD [Medical Doctor] - 1 Day Additional Instructions: PLEASE RETURN TO THE ED IMMEDIATELY FOR WORSENING OR CONCERNING SYMPTOMS. YOUR CASE WAS DISCUSSED WITH DR. VERAS, FOLLOW UP WITH DR. VERAS IN HIS OFFICE TOMORROW. - Attestation Statements Document Initiated by Scribe: Yes Documenting Scribe: IMELDA GARCIA Provider For Whom Scribe is Documenting (Include Credential): CHINTAN HEALY MD Scribe Attestation: I, IMELDA GARCIA, scribed for CHINTAN HEALY MD on 09/24/18 at 0209. Status of Scribe Document: Ready
[2018-09-23] MEDS ORDERED: Lorazepam PYXIS KEY ONE (22:12)
[2018-09-23 23:40] VITALS: BP 128/88
== END 2018-09-23 23:39 | disposition home or self-care (01) ==
LOC: ED 20:20 → SUPCPDRO 20:20 → ED 23:39
DX: R13.10 Dysphagia, unspecified (principal); J44.9 Chronic obstructive pulmonary disease, unspecified; Z88.0 Allergy status to penicillin; F17.210 Nicotine dependence, cigarettes, uncomplicated; K21.9 Gastro-esophageal reflux disease without esophagitis
CPT/HCPCS: 96374; 96375; 99282; J1610; J2060

== ENCOUNTER 2019-04-23 14:03 | Emergency (ER) | payer MEDICARE, OTHER ==
--- OUTSIDE RECORDS SUMMARY | 2019-04-23 14:34 | XMS REPORT ---
:1970 Author Organization [facility] Care Team Providers Name Role Phone Radha Cardoza Primary Care Physician Unavailable Allergies, Adverse Reactions, Alerts Allergy Code CodeSystem Reaction Severity Criticality Status Start Substance Date Moderate Medications Medication Medication Medication Start Stop Route Dose Status Fill Code CodeSystem Date Date Instructions trazodone 434018 RxNorm oral 50 mg active for 30 4-09 tablet day(s) aripiprazole 501855 RxNorm 2019- oral 15 mg 1 completed Take 1 tablet 5- 06-07 tablet every every morning for morning 30 day(s) nifedipine 064731 RxNorm oral 10 mg active for 30 1-24 capsule day(s) aripiprazole 395244 RxNorm oral 20 mg active for 30 6-07 tablet day(s) tamsulosin 422467 RxNorm 2017-04 oral 0.4 mg active for 30 2-17 capsule day(s) aripiprazole 694222 RxNorm 2019- oral 10 mg completed for 30 4-15 05-01 tablet day(s) esomeprazole 949419 RxNorm 2017-04 oral 20 mg active for 30 magnesium 1-30 capsule, day(s) delayed release( DR/EC) meloxicam 798315 RxNorm 2017-04 oral 7.5 mg active for 30 1-19 tablet day(s) Problems Problem Code CodeSystem Alternate Alternate Start End Status Narrative Name Code CodeSystem Date Date Bipolar [id number] SNOMED-CT 2018-07 Active disorder, -15 current episode depressed, moderate Relevant diagnostic tests/laboratory data Narrative No Information Procedures Procedure Code CodeSystem Target Date of Status Service Device Device Device Name Site Procedure Delivery Code Name UID Location SNOMED-CT () 2018-07-[address], [id number] SNOMED-CT () 2018-07-22 complete Mental d Health- [place] [address], [id number] Psychotherap [id number] SNOMED-CT () 2018-07-25 complete Mental y, 45 04 d Health- minutes with [place] patient [address], [id number] [phone] Office or [id number] SNOMED-CT () 2018-08-07 complete Mental other 7 d Health- outpatient [place] visit for [address], established [id number] patient, [phone] which requires at least 2 of these 3 mccloud components: An expanded problem focused history; An expanded problem focused examination; Medical decision making of low Psychotherap [id number] SNOMED-CT () 2018-09-10 complete Mental y, 45 04 d Health- minutes with [place] patient [address], [id number] [phone] Office or [id number] SNOMED-CT () 2018-09-13 complete Mental other 7 d Health- outpatient [place] visit for [address], established [id number] patient, [phone] which requires at least 2 of these 3 mccloud components: An expanded problem focused history; An expanded problem focused examination; Medical decision making of low SNOMED-CT () 2018-09-25 complete Mental d Health- [place], [phone] SNOMED-CT () 2018-10-03 complete Mental d Health- [place] [address], [id number] Group [id number] SNOMED-CT () 2018-10-03 complete Mental psychotherap 8 d Health- y (other [place] than of a [address]) [place], [place], [id number] Group [id number] SNOMED-CT () 2018-10-17 complete Mental psychotherap 8 d Health- y (other [place] than of a [address]) [place], [place], [id number] Group [id number] SNOMED-CT () 2018-10-24 complete Mental psychotherap 8 d Health- y (other [place] than of a [address]) [place], [place], [id number] Group [id number] SNOMED-CT () 2018-10-31 complete Mental psychotherap 8 d Health- y (other [place] than of a [address]) [place], [place], [id number] [id number] SNOMED-CT () 2018-10-15 complete Mental d Health- [place] [address], [id number] [phone] Office or [id number] SNOMED-CT () 2018-10-15 complete Mental other 6 d Health- outpatient [place] visit for [address], of an [place], established [id number] patient, [phone] which requires at least 2 of these 3 mccloud components: A problem focused history; A problem focused examination; Straightforw eliu medical decision making. Counselin Group [id number] SNOMED-CT () 2018-11-07 complete Mental psychotherap 8 d Health- y (other [place] than of a [address]) [place], [place], [id number] Group [id number] SNOMED-CT () 2018-11-14 complete Mental psychotherap 8 d Health- y (other [place] than of a [address] group) [place], [place], [id number] [phone] SNOMED-CT () 2018-11-12 complete Mental d Health- [place] [address], [id number] Group [id number] SNOMED-CT () 2018-11-21 complete Mental psychotherap 8 d Health- y (other [place] than of a [address] group) [place], [place], [id number] [phone] Office or [id number] SNOMED-CT () 2018-12-02 complete Mental other 7 d Health- outpatient [place] visit for [address], [facility] established [id number] patient, [phone] which requires at least 2 of these 3 mccloud components: An expanded problem focused history; An expanded problem focused examination; Medical decision making of low Group [id number] SNOMED-CT () 2018-12-19 complete Mental psychotherap 8 d Health- y (other [place] than of a [address]) [place], [place], [id number] SNOMED-CT () 2018-12-16 complete Mental d Health- [place], [id number] [phone] Office or [id number] SNOMED-CT () 2019-01-31 complete Mental other 6 d Health- outpatient [place] visit for [address] [id number] patient, [phone] which requires at least 2 of these 3 mccloud components: A problem focused history; A problem focused examination; Straightforw eliu medical decision making. Counsel[facility] Group [id number] SNOMED-CT () 2019-02-13 complete Mental psychotherap 8 d Health- y (other [place] than of a [address]) [place], [place], [id number] [id number] SNOMED-CT () 2019-03-13 complete Mental d Health- [address], [id number] Group [id number] SNOMED-CT () 2019-03-13 complete Mental psychotherap 8 d Health- y (other [place] than of a [address]) [place], [place], [id number] [phone] Encounters/Encounter Diagnoses Encounter Name Encounter Diagnosis Diagnosis Diagnosis Date of Service Code Code Name CodeSystem Diagnosis Delivery Location Psychotherapy - 36477 [id number] Bipolar SNOMED-CT 2019-03-13 Behavioral Individual 30 disorder, Health min current Clinic 201 episode [facility], [place], moderate [place], [place], [id number] Vital Signs No Information Social History Element Description Description Start End Code CodeSystem AdditionalInfo Date Date SexAssignedAtBirth Male 1971-0 M AdministrativeGender - Hospital Discharge Instructions Reason For Referral Medical Equipment FDA Assessments
--- OUTSIDE RECORDS SUMMARY | 2019-04-23 14:34 | XMS REPORT ---
:1970 Author Organization [facility] Care Team Providers Name Role Phone Radha Cardoza Primary Care Physician Unavailable Allergies, Adverse Reactions, Alerts Allergy Code CodeSystem Reaction Severity Criticality Status Start Substance Date Moderate Medications Medication Medication Medication Start Stop Route Dose Status Fill Code CodeSystem Date Date Instructions aripiprazole 341908 RxNorm 2019- oral 15 mg 1 completed Take 1 tablet 5- 06-07 tablet every every morning for morning 30 day(s) tamsulosin 094671 RxNorm 2017-04 oral 0.4 mg active for 30 2-17 capsule day(s) esomeprazole 714520 RxNorm 2017-04 oral 20 mg active for 30 magnesium 1-30 capsule, day(s) delayed release( DR/EC) aripiprazole 758562 RxNorm 2019- oral 10 mg completed for 30 4-15 05-01 tablet day(s) aripiprazole 390641 RxNorm oral 20 mg active for 30 6-07 tablet day(s) meloxicam 237701 RxNorm 2017-04 oral 7.5 mg active for 30 1-19 tablet day(s) trazodone 671594 RxNorm oral 50 mg active for 30 4-09 tablet day(s) nifedipine 448090 RxNorm 20190 oral 10 mg active for 30 1-24 capsule day(s) Problems Problem Code CodeSystem Alternate Alternate Start End Status Narrative Name Code CodeSystem Date Date Bipolar 42813132 SNOMED-CT 2018-07 Active disorder, -15 current episode depressed, moderate Relevant diagnostic tests/laboratory data Narrative No Information Procedures Procedure Code CodeSystem Target Date of Status Service Device Device Device Name Site Procedure Delivery Code Name UID Location Psychotherap 472938 SNOMED-CT () 2018-07-25 complete Mental y, 45 04 d Health- minutes with [address], [id number] Psychotherap [id number] SNOMED-CT () 2018-09-10 complete Mental y, 45 04 d Health- minutes with [place] patient [address], [id number] [id number] Group [id number] SNOMED-CT () 2018-10-03 complete Mental psychotherap 8 d Health- y (other [place] than of a [address] group) [place], [place], [id number] [id number] Group [id number] SNOMED-CT () 2018-10-17 complete Mental psychotherap 8 d Health- y (other [place] than of a [address] group) [place], [place], [id number] [id number] Group [id number] SNOMED-CT () 2018-10-24 complete Mental psychotherap 8 d Health- y (other [place] than of a [address] group) [place], [place], [id number] Group [id number] SNOMED-CT () 2018-10-31 complete Mental psychotherap 8 d Health- y (other [place] than of a [address] group) [place], [place], [id number] [id number] Group [id number] SNOMED-CT () 2018-11-21 complete Mental psychotherap 8 d Health- y (other [place] than of a [address] group) [place], [place], [id number] Group [id number] SNOMED-CT () 2018-11-07 complete Mental psychotherap 8 d Health- y (other [place] than of a [address] group) [place], [place], [id number] [id number] Group [id number] SNOMED-CT () 2018-11-14 complete Mental psychotherap 8 d Health- y (other [place] than of a [address] group) [place], [place], [id number] Group [id number] SNOMED-CT () 2018-12-19 complete Mental psychotherap 8 d Health- y (other [place] than of a [address] group) [place], [place], [id number] Group [id number] SNOMED-CT () 2019-02-13 complete Mental psychotherap 8 d Health- y (other [place] than of a [facility] multiple-[address] group) [place], [place], [id number] [phone] Office or [id number] SNOMED-CT () 2018-12-02 complete Mental other 7 d Health- outpatient [place] visit for [address] [facility] [id number] patient, [phone] which requires at least 2 of these 3 mccloud components: An expanded problem focused history; An expanded problem focused examination; Medical decision making of low Office or [id number] SNOMED-CT () 2018-09-13 complete Mental other 7 d Health- outpatient [place] visit for [address] [facility] [id number] patient, [phone] which requires at least 2 of these 3 mccloud components: An expanded problem focused history; An expanded problem focused examination; Medical decision making of low Office or [id number] SNOMED-CT () 2018-08-07 complete Mental other 7 d Health- outpatient [place] visit for [address] [facility] [id number] patient, [phone] which requires at least 2 of these 3 mccloud components: An expanded problem focused history; An expanded problem focused examination; Medical decision making of low Office or [id number] SNOMED-CT () 2018-10-15 complete Mental other 6 d Health- outpatient [place] visit for [address] [facility] [id number] patient, [phone] which requires at least 2 of these 3 mccloud components: A problem focused history; A problem focused examination; Straightforw eliu medical decision making. Counselin Office or [id number] SNOMED-CT () 2019-01-31 complete Mental other 6 d Health- outpatient [place] visit for [address] [facility] [id number] patient, [phone] which requires at least 2 of these 3 mccloud components: A problem focused history; A problem focused examination; Straightforw eliu medical decision making. Counselin SNOMED-CT () 2018-07-08 [facility] Mental [address], [id number] [phone] SNOMED-CT () 2018-09-[address], [id number] SNOMED-CT () 2018-11-[address], [id number] SNOMED-CT () 2018-12-[address], [id number] SNOMED-CT () 2018-10-[address], [id number] [id number] SNOMED-CT () 2018-07-[address], [id number] SNOMED-CT () 2018-10-[address], [id number] Encounters/Encounter Diagnoses Encounter Encounter Diagnosis Diagnosis Diagnosis Date of Service Name Code Code Name CodeSystem Diagnosis Delivery Location Non-Billable 26333 [id number] Bipolar SNOMED-CT 2019-02-20 Behavioral disorder, Health current Clinic , , episode , depressed, moderate Vital Signs No Information Social History Element Description Description Start End Code CodeSystem AdditionalInfo Date Date SexAssignedAtBirth Male 1971-0 M AdministrativeGender - Hospital Discharge Instructions Reason For Referral Medical Equipment FDA Assessments
[2019-04-23 14:48] VITALS: BP 116/78
--- NOTE | 2019-04-23 14:48 | UC ---
Lower Extremity/Ankle HPI - HPI Summary HPI Summary: 48-year-old male who has a history of large varicosities on his left leg. He states today he was getting up out of a chair and he felt pain in one of them and saw that it was bulging. He states he does not usually have a large varicosity in that location. He denies any pedal or ankle edema. Denies any difficulty breathing. He states the varicosities are a chronic problem and because of the bulging varicose vein today he did call his vascular surgeon and made an appointment for early next week. - History of Current Complaint Chief Complaint: UCLowerExtremity Stated Complaint: LT LEG COMPLAINT Time Seen by Provider: 04/23/19 14:47 Hx Obtained From: Patient Onset/Duration: Sudden Onset Severity Initially: Mild Severity Currently: Mild Pain Intensity: 4 Aggravating Factor(s): Nothing Alleviating Factor(s): Rest Able to Bear Weight: Yes - Allergies/Home Medications Allergies/Adverse Reactions: Allergies Allergy/AdvReac Type Severity Reaction Status Date / Time Penicillins Allergy Nausea And Verified 04/23/19 14:39 Vomiting pregabalin [From Lyrica] Allergy See Comment Verified 04/23/19 14:39 Home Medications: Home Medications Meloxicam [Qmiiz Odt] 1 tab BID 04/23/19 [History Confirmed 04/23/19] Metaxalone TAB* [Skelaxin TAB*] 1 tab BID 04/23/19 [History Confirmed 04/23/19] lamoTRIgine [Lamictal] 1 tab DAILY 04/23/19 [History Confirmed 04/23/19] PMH/Surg Hx/FS Hx/Imm Hx Previously Healthy: Yes Respiratory History: COPD - Surgical History Surgical History: Yes Surgery Procedure, Year, and Place: Back surgeries (2001, 2007, 2012, 2018, 2019 ). Dorsal Column Stimulator, appendectomy, varicocele repair, speed banding for hemorrhoids - Family History Known Family History: Positive: Diabetes, Other Negative: Renal Disease Family History: diverticulitis - Social History Occupation: Disabled Lives: With Family Alcohol Use: None Alcohol Amount: Beer Substance Use Type: None Smoking Status (MU): Former Smoker Amount Used/How Often: 1 ppd Length of Time of Smoking/Using Tobacco: 10 -15 years Have You Smoked in the Last Year: No When Did the Patient Quit Smoking/Using Tobacco: Quit 2002 - Immunization History Most Recent Influenza Vaccination: 2018 Most Recent Pneumonia Vaccination: N/A Review of Systems All Other Systems Reviewed And Are Negative: Yes Skin: Positive: Other - Patient has chronic lower leg or Costley's. Musculoskeletal: Positive: Other: - Patient states he has pain right where the varicosity is located his medial proximal calf. Is Patient Immunocompromised?: No Physical Exam Triage Information Reviewed: Yes Appearance: Well-Appearing, No Pain Distress, Well-Nourished Vital Signs: Initial Vital Signs Temp 98.4 F 04/23/19 14:40 Pulse 64 04/23/19 14:40 Resp 16 04/23/19 14:40 BP 116/78 04/23/19 14:40 Pulse Ox 99 04/23/19 14:40 Vital Signs Reviewed: Yes Musculoskeletal Exam: Normal Neurological Exam: Normal Psychological Exam: Normal Skin: Positive: Other - The patient has numerous large varicosities left lower leg. Good peripheral pulses, neuro sensation and capillary refill. Good range of motion. The larger varicosity of concern is mildly tender on palpation but there is no swelling, no erythema no evidence of phlebitis at this point in time. Lower Extremity Course/Dx - Course Course Of Treatment: The patient did make an appointment with a vascular surgeon for early next week. I don't believe this is a phlebitis at this point in time and I don't believe that he needs a venous Doppler (which we do not have available today). I advised him if he has any leg swelling, increase in pain, redness he is to go to the emergency room for further treatment and to definitely keep his appointment with the vascular surgeon next week. - Differential Dx/Diagnosis Provider Diagnosis: Varicose vein of leg Discharge ED - Sign-Out/Discharge Documenting (check all that apply): Patient Departure All imaging exams completed and their final reports reviewed: No Studies - Discharge Plan Condition: Good Disposition: HOME Referrals: Xin Mullins MD [Primary Care Provider] - Additional Instructions: Elevate as much as possible, apply warm moist compresses to the sore area 4-6 times a day for 20 minutes each time, may take ibuprofen every 8 hours with food for pain. After the pain goes away it would be a good idea to wear support hose. Keep your appointment with your vascular surgeon next week. Follow-up with Dr. Mullins for any worsening symptoms between now and then. - Billing Disposition and Condition Condition: GOOD Disposition: Home - Attestation Statements Provider Attestation: I was available for consult. This patient was seen by the ALLEGRA. The patient was not presented to, seen by, or examined by me. -Walker
== END 2019-04-23 15:00 | disposition home or self-care (01) ==
LOC: UCCORT 14:03
DX: I83.93 Asymptomatic varicose veins of bilateral lower extremities (principal); J44.9 Chronic obstructive pulmonary disease, unspecified; Z87.81 Personal history of (healed) traumatic fracture; Z88.0 Allergy status to penicillin; Z88.6 Allergy status to analgesic agent
CPT/HCPCS: 99211; G0463

== ENCOUNTER 2020-06-30 18:06 | Inpatient (IN) ==
[2020-06-30 19:00] LABS: Urine Appearance Clear; Urine Bilirubin Negative (Negative); Urine Blood Negative (Negative); Urine Color Yellow; Urine Glucose Negative (Negative); Urine Ketones Negative (Negative); Urine Nitrite Negative (Negative); Urine Protein Negative (Negative); Urine Specific Gravity 1.025 (1.010-1.030); Urine Urobilinogen Negative (Negative)
[2020-06-30 19:12] LABS: ABS Basophils 0.1 10^3/ul (0-0.2); ABS Eosinophils 0.6 10^3/ul (0-0.6); ABS Lymphocytes 2.2 10^3/ul (1.0-4.8); ABS Monocytes 0.4 10^3/ul (0-0.8); ABS Neutrophils 2.1 10^3/ul (1.5-7.7); Eosinophil % 10.4 %; Hematocrit 43 % (42-52); Hemoglobin 15.6 g/dL (14.0-18.0); Lymphocyte % 40.9 %; Mean Corpuscular HGB Conc 36 g/dL (31-36); Mean Corpuscular Hemoglobin 32 pg (27-31); Mean Corpuscular Volume 89 fL (80-94); Mean Platelet Volume 8.2 fL (7.4-10.4); Nucleated Red Blood Cells % 0.1; Platelet Count 205 10^3/uL (150-450); Red Blood Count 4.86 10^6 /uL (4.18-5.48); Red Cell Distribution Width 13 % (10-15); White Blood Count 5.4 10^3/uL (3.5-10.8)
[2020-06-30 19:30] LABS: Urine Benzodiazepine Screen None Detected (None Detect); Urine Cannabinoids Screen None Detected (None Detect); Urine Opiates Screen Presumptive Positive (None Detect)
[2020-06-30 19:32] LABS: ALT 20 U/L (7-52); AST 19 U/L (13-39); Albumin 4.3 g/dL (3.2-5.2); Albumin/Globulin Ratio 1.5 (1-3); Alkaline Phosphatase 61 U/L (34-104); Anion Gap 6 mmol/L (2-11); BUN/Creatinine Ratio 10.6 (8-20); Blood Urea Nitrogen 10 mg/dL (6-24); CO2 Carbon Dioxide 26 mmol/L (22-32); Chloride 106 mmol/L (101-111); EGFR African American 102.4 (>60); EGFR Non-African American 84.6 (>60); Globulin 2.9 g/dL (2-4); Glucose 91 mg/dL (70-100); Sodium 138 mmol/L (135-145); Total Protein 7.2 g/dL (6.4-8.9)
[2020-06-30 19:33] LABS: Acetaminophen < 15 mcg/mL; Alcohol, S < 10 mg/dL (<10); Salicylate < 2.50 mg/dL (<30); TSH Ultra Thyroid Stim Horm 2.44 mcIU/mL (0.34-5.60)
[2020-07-01] MEDS ORDERED: Al Hydrox/Mg Hydrox/Simet LIQ 30 ML UDC PO PRN (04:02)
[2020-07-01] MEDS: Vitamin THERAPEUTIC TAB PO SCH (09:26)
[2020-07-01] MEDS: HYDROcodone/ACETAMIN 5/325 mg TAB PO PRN ×2 (09:28→17:43)
[2020-07-02] MEDS: HYDROcodone/ACETAMIN 5/325 mg TAB PO PRN ×2 (06:56→15:12)
[2020-07-02 07:46] LABS: HDL Cholesterol 33.7 mg/dL
[2020-07-02] MEDS: Vitamin THERAPEUTIC TAB PO SCH (09:04)
[2020-07-03] MEDS: Vitamin THERAPEUTIC TAB PO SCH (08:54)
[2020-07-03] MEDS: HYDROcodone/ACETAMIN 5/325 mg TAB PO PRN ×2 (08:54→15:09)
[2020-07-04] MEDS: Vitamin THERAPEUTIC TAB PO SCH (08:18)
[2020-07-04] MEDS: HYDROcodone/ACETAMIN 5/325 mg TAB PO PRN (08:19)
[2020-07-05] MEDS: Vitamin THERAPEUTIC TAB PO SCH (08:42)
[2020-07-05] MEDS: HYDROcodone/ACETAMIN 5/325 mg TAB PO PRN (08:44)
[2020-07-05 09:52] VITALS: BP 133/77
== END 2020-07-05 16:50 | disposition home or self-care (01) | DRG 885 ==
LOC: ED 18:06 → BSU 07-01 01:59
PROVIDERS: ADMIT Psychiatry & Neurology Psychiatry; ATTEND Psychiatry & Neurology Psychiatry